=== PATIENT | female | born 1940 | race Caucasian/White ===

== ENCOUNTER 2018-02-08 08:50 | Inpatient (IN) ==
[2018-02-08] MEDS ORDERED: Aspirin 81 MG TAB.CHEW PO ONE (09:02)
--- NOTE | 2018-02-08 09:04 | Emergency Department Note ---
Disposition Clinical Impression: UTI (urinary tract infection) Chest pain Qualifiers: Chest pain type: unspecified Qualified Code(s): R07.9 - Chest pain, unspecified Disposition: Admitted As Inpatient Condition: Fair Time of Disposition: 09:48 General Adult HPI - General Stated complaint: CP,UTI Time Seen by Provider: 02/08/18 08:58 Nursing Notes Reviewed: Yes Vital Signs Reviewed: Yes - History of Present Illness HPI Narrative: Patient presents to the ED with 2 chief complaints. The first one is a UTI. She has had symptoms that have not resolved with Ceftin air. She is also having exertional chest pain that worsened yesterday. Currently chest pain- free. Denies any cardiac history. Patient states the pain radiates across her shoulders and up into her jaws. - Related Data Home Medications Medication Instructions Recorded Confirmed HYDROcodone/Acet 7.5/325 mg [[place] 1 tab PO Q4H PRN 07/09/17 02/08/18 7.5-325 mg] Buspirone HCl [Buspar] 15 mg PO TID 02/08/18 02/08/18 Dicyclomine [Bentyl] 20 mg PO QID PRN 02/08/18 02/08/18 Ibuprofen [Motrin Ib] 200 mg PO DAILY PRN 02/08/18 02/08/18 Metoprolol Succinate [Toprol Xl] 50 mg PO DAILY 02/08/18 02/08/18 Omeprazole [PriLOSEC] 20 mg PO DAILY PRN 02/08/18 02/08/18 hydrOXYzine HCl [Hydroxyzine HCl] 25 mg PO TID 02/08/18 02/08/18 Allergies Allergy/AdvReac Type Severity Reaction Status Date / Time arthritis medicine Allergy Hives Uncoded 01/19/17 11:21 All systems ED: reviewed and negative except as stated. Constitutional: Denies: fever Cardiovascular: Reports: chest pain Respiratory: Reports: dyspnea. Denies: wheezes Gastrointestinal: Denies: abdominal pain, vomiting, diarrhea Genitourinary: Reports: urgency, dysuria Neurological: Denies: headache Past Medical History - Past Medical History Attestation: Yes The following information was validated with the patient. 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 Absent: respiratory distress - Cardiovascular Cardiovascular exam: Present: regular rate, normal rhythm, normal heart sounds - Abdominal Exam Abdominal exam: Present: soft, Non-Tender - Neurological Exam Neurological exam: Present: alert, oriented X3 - Psychiatric Psychiatric exam: Present: normal affect - Skin Skin exam: Present: warm, dry Course Course Narrative: Patient is in no acute distress. She is currently chest pain-free. No acute ischemic EKG changes. Patient will be admitted for further cardiac workup. - Reevaluation(s) Reevaluation #1: Troponin 0.06. Still pain free. Will admit. Time: 09:47 - Consultations Consultation #1: Dr Encinas accepts Time: 09:47 Vital Signs Pulse Rate 59 02/08/18 09:05 Respiratory Rate 11 02/08/18 09:05 Blood Pressure 194/80 02/08/18 09:05 O2 Sat by Pulse Oximetry 99 02/08/18 09:05 Temperature 97.5 F L 02/08/18 09:08 Pulse Rate 60 02/08/18 09:34 Respiratory Rate 18 02/08/18 10:16 Blood Pressure 195/86 02/08/18 10:16 O2 Sat by Pulse Oximetry 99 02/08/18 09:34 Oxygen Delivery Oxygen Delivery Room Air Medical Decision Making - [facility] Narrative Medical decision making narrative: Patient with UTI. Given Rocephin and culture ordered. Patient is further cardiac workup for elevated troponin and concerning symptoms. - Medical Records Medical records reviewed: Yes I reviewed the patient's medical records. - Lab Data Lab results reviewed: Yes I reviewed the patient's lab results. Result diagrams: 02/08/18 09:04 02/08/18 09:04 Lab Results 02/08/18 02/08/18 02/08/18 Range/Units 09:03 09:04 09:04 WBC 5.3 (4.3-11.1) K/mcL RBC 3.62 L (3.82-4.97) M/mcL Hgb 11.0 L (11.5-15.4) g/dL Hct 32.6 L (35.3-44.9) % MCV 90.1 (83.0-100.0) fL MCH 30.4 (28.0-33.3) pg MCHC 33.7 (31.6-35.5) g/dL RDW 12.5 (11.5-14.5) % Plt Count 201 (140-400) K/mcL MPV 8.7 L (9.4-12.4) fL Immature Gran % 0.8 (0-4) % Seg Neutrophils % 57.9 % Lymphocytes % 27.2 % Monocytes % 9.2 % Eosinophils % 3.4 % Basophils % 1.5 % Neutrophils # 3.1 (1.6-8.9) K/mcL Lymphocytes # 1.5 (0.6-4.6) K/mcL Monocytes # 0.5 (0.0-1.3) K/mcL Eosinophils # 0.2 (0.0-0.6) K/mcL Basophils # 0.1 (0.0-0.2) K/mcL PT 11.1 (9.4-12.1) Seconds INR 1.0 APTT 35.5 (26.0-36.0) Seconds Sodium 135 L (136-145) mEq/L Potassium 3.5 (3.5-5.1) mEq/L Chloride 104 (98-107) mEq/L Carbon Dioxide 27 (23-29) mEq/L BUN 13 (8-23) mg/dL Creatinine 0.65 (0.60-1.20) mg/dL Est GFR ( Amer) > 60 (> 60) Est GFR (Non-Af Amer) > 60 (> 60) BUN/Creatinine Ratio 20 (6-26) Glucose 96 (70-105) mg/dL Calculated Osmolality 280 (280-300) Calcium 8.3 L (8.6-10.3) mg/dL Troponin I 0.06 H* (< 0.04) ng/mL Urine Color (Yellow) Urine Clarity (Clear) Urine pH (5.0-8.0) pH Units Ur Specific [place] (1.010-1.025) Urine Protein (Neg-Trace) mg/dL Urine Glucose (UA) (Normal) mg/dL Urine Ketones (Negative) mg/dL Urine Blood (Negative) Urine Nitrite (Negative) Urine Bilirubin (Negative) Urine Urobilinogen (Normal) mg/dL Ur Leukocyte Esterase (Negative) Urine Microscopic RBC (0-3) per hpf Urine Microscopic WBC (0-3) per hpf Ur Squamous Epith Cells (None-Few) per lpf Urine Bacteria (None-Few) per hpf Hyaline Casts (None-Few) per lpf Ur Culture Indicated? (NO) 02/08/18 Range/Units 09:55 WBC (4.3-11.1) K/mcL RBC (3.82-4.97) M/mcL Hgb (11.5-15.4) g/dL Hct (35.3-44.9) % MCV (83.0-100.0) fL MCH (28.0-33.3) pg MCHC (31.6-35.5) g/dL RDW (11.5-14.5) % Plt Count (140-400) K/mcL MPV (9.4-12.4) fL Immature Gran % (0-4) % Seg Neutrophils % % Lymphocytes % % Monocytes % % Eosinophils % % Basophils % % Neutrophils # (1.6-8.9) K/mcL Lymphocytes # (0.6-4.6) K/mcL Monocytes # (0.0-1.3) K/mcL Eosinophils # (0.0-0.6) K/mcL Basophils # (0.0-0.2) K/mcL PT (9.4-12.1) Seconds INR APTT (26.0-36.0) Seconds Sodium (136-145) mEq/L Potassium (3.5-5.1) mEq/L Chloride (98-107) mEq/L Carbon Dioxide (23-29) mEq/L BUN (8-23) mg/dL Creatinine (0.60-1.20) mg/dL Est GFR ( Amer) (> 60) Est GFR (Non-Af Amer) (> 60) BUN/Creatinine Ratio (6-26) Glucose (70-105) mg/dL Calculated Osmolality (280-300) Calcium (8.6-10.3) mg/dL Troponin I (< 0.04) ng/mL Urine Color Yellow (Yellow) Urine Clarity Turbid A (Clear) Urine pH 6.5 (5.0-8.0) pH Units Ur Specific [place] 1.014 (1.010-1.025) Urine Protein Negative (Neg-Trace) mg/dL Urine Glucose (UA) Normal (Normal) mg/dL Urine Ketones Negative (Negative) mg/dL Urine Blood Small H (Negative) Urine Nitrite Positive A (Negative) Urine Bilirubin Negative (Negative) Urine Urobilinogen Normal (Normal) mg/dL Ur Leukocyte Esterase Large H (Negative) Urine Microscopic RBC 5-15 H (0-3) per hpf Urine Microscopic WBC TNTC H (0-3) per hpf Ur Squamous Epith Cells Many H (None-Few) per lpf Urine Bacteria Many H (None-Few) per hpf Hyaline Casts None Seen (None-Few) per lpf Ur Culture Indicated? NO. A (NO) - Radiology Data Radiology results reviewed: Yes I reviewed the patient's radiology results. Chest X-Ray 02/08/18 09:03 IMPRESSION: No acute cardiopulmonary process identified. D/ / Beni De La Garza MD / Beni De La Garza MD Interpreting Provider: Beni De La Garza MD - EKG Data EKG #1 EKG attestation: Yes I reviewed and interpreted this EKG. EKG results narrative: Sinus bradycardia at 55. Normal QRS. Normal ST segments. Normal axis. Unchanged from EKG October 2017. Critical Care Time Critical Care Time: No
[2018-02-08 09:21] LABS: Basophils # 0.1 K/mcL (0.0-0.2); Basophils % 1.5 %; Eosinophils # 0.2 K/mcL (0.0-0.6); Eosinophils % 3.4 %; Hematocrit 32.6 % (35.3-44.9); Immature Granulocytes % 0.8 % (0-4); Lymphocytes # 1.5 K/mcL (0.6-4.6); Lymphocytes % 27.2 %; Mean Corpuscular HGB Conc 33.7 g/dL (31.6-35.5); Mean Corpuscular Hemoglobin 30.4 pg (28.0-33.3); Mean Corpuscular Volume 90.1 fL (83.0-100.0); Mean Platelet Volume 8.7 fL (9.4-12.4); Monocytes # 0.5 K/mcL (0.0-1.3); Monocytes % 9.2 %; Neutrophils # 3.1 K/mcL (1.6-8.9); Platelet Count 201 K/mcL (140-400); Red Blood Count 3.62 M/mcL (3.82-4.97); Red Cell Distribution Width 12.5 % (11.5-14.5); Segmented Neutrophils % 57.9 %
[2018-02-08 09:26] LABS: Prothrombin Time 11.1 Seconds (9.4-12.1)
[2018-02-08 09:29] LABS: Activated Partial Thrombo Time 35.5 Seconds (26.0-36.0)
[2018-02-08] MEDS ORDERED: Naloxone 0.4 MG/ML INJ IVP PRN (09:42)
[2018-02-08 09:44] LABS: BUN/Creatinine Ratio 20 (6-26); Blood Urea Nitrogen 13 mg/dL (8-23); Calcium 8.3 mg/dL (8.6-10.3); Carbon Dioxide 27 mEq/L (23-29); Chloride 104 mEq/L (98-107); Glucose 96 mg/dL (70-105); Osmolality,Calculated 280 (280-300); Potassium 3.5 mEq/L (3.5-5.1); Sodium 135 mEq/L (136-145); eGFR For African Americans > 60 (> 60); eGFR For Non-African Americans > 60 (> 60)
[2018-02-08] MEDS ORDERED: Metoprolol XL (24 HR) Succ 25 MG TAB.ER.24H PO ONE (09:45)
[2018-02-08 09:47] LABS: Troponin I 0.06 ng/mL (< 0.04)
--- NOTE | 2018-02-08 09:50 | Internal Med History&Physical ---
Date of Encounter: 02/09/18 Time of Encounter: 09:49 Internal Medicine - H&P: HPI Chief complaint: chest pain Admitted From: Emergency Dept Plans for Post Hospital Care: Home History of present illness: PCP: GRACIELA Stacy Brief past medical history: Fibromyalgia, irritable bowel syndrome, multiple episodes of urinary tract infection for more than 25 years History of present medical illness: This is a 77-year-old female who has ongoing chest pain for past 48 hours. Patient claims that she has a retrosternal chest pain, radiating to her jaw and her left arm, sharp in nature , worsened with exercise and activity and relieved by rest. Patient was concern about this progressively worsened chest pain and that was the reason she came to emergency room for further evaluation. Patient does have a foul smelling urine. Patient denies nausea, vomiting, dizziness, abdominal pain, or diarrhea. Workup in the emergency room: Patient was evaluated in the emergency room. Basic labs were drawn. Chest x-ray was negative for any acute cardiopulmonary process. Troponin was 0.06 Reason for admission: Chest pain with positive troponin to rule out underlying coronary artery disease/acute coronary syndrome Family history: Noncontributory Past Med Surg Social Fam HX - Past Medical History Medical history: arthritis, cancer, GERD, hypertension, other Psychiatric history: anxiety, depression - Past Surgical History Surgical History: appendectomy, breast surgery, cancer surgery - Social History Smoking Status: Never smoker Alcohol use: none Drug use: none Internal Medicine - H&P: Meds HYDROcodone/Acet 7.5/325 mg [[place] 7.5-325 mg] 1 tab PO Q4H PRN 07/09/17 [ History] Buspirone HCl [Buspar] 15 mg PO TID 02/08/18 [History] Dicyclomine [Bentyl] 20 mg PO QID PRN 02/08/18 [History] Ibuprofen [Motrin Ib] 200 mg PO DAILY PRN 02/08/18 [History] Metoprolol Succinate [Toprol Xl] 50 mg PO DAILY 02/08/18 [History] Omeprazole [PriLOSEC] 20 mg PO DAILY PRN 02/08/18 [History] hydrOXYzine HCl [Hydroxyzine HCl] 25 mg PO TID 02/08/18 [History] 3 Allergy/AdvReac Type Severity Reaction Status Date / Time arthritis medicine Allergy Hives Uncoded 01/19/17 11:21 All Systems PM: A 10-system review of systems was performed and is negative for pertinent findings except as documented above in the HPI. - Constitutional Constitutional: no chills, no fever(s), no night sweats - EENT Eyes: no change in vision, no discharge, no pain, no photophobia Ears: no ear discharge, no ear pain, no tinnitus Nose, mouth and throat: no dysphagia, no nasal discharge, no neck pain, no sore throat - Cardiovascular Cardiovascular ROS IM: chest pain, no diaphoresis, no dyspnea, no lightheadedness, no palpitations, no syncope - Respiratory Respiratory: no cough, no dyspnea, no wheezing, no excessive phlegm production - Gastrointestinal Gastrointestinal: no abdominal pain, no diarrhea, no hematemesis, no hematochezia, no melena, no nausea, no vomiting - Genitourinary Genitourinary: no change in urinary stream, no dysuria, no flank pain, no hematuria - Musculoskeletal Musculoskeletal ROS IM: no numbness, no tingling - Integumentary Integumentary IM: no rash, no unusual bruising - Neurological Neurological ROS: no confusion, no convulsions, no focal weakness, no numbness, no tingling, no tremor(s) - Hematologic/Lymphatic Hematologic/Lymphatic: no easy bruising - Constitutional Vitals: Temp Pulse Resp BP Pulse Ox 97.5 F L 60 16 158/94 99 02/08/18 09:08 02/08/18 09:34 02/08/18 09:34 02/08/18 09:34 02/08/18 09:34 General appearance: Present: A&O X 3, pleasant, no acute distress, answers questions appropriately - Head Head exam: Present: atraumatic, normocephalic - Eye Eye exam: Present: PERRL, conjuntiva pink, sclera anicteric Pupils: Present: PERRL - Neck Neck exam general surgery: Present: supple, trachea midline. Absent: lymphadenopathy - Respiratory Respiratory exam: Present: CTAB. Absent: accessory muscle use, rales, rhonchi, wheezes - Cardiovascular Cardiovascular exam: Present: RRR, +S1, +S2. Absent: diastolic murmur, gallop, rubs, systolic murmur - GI/Abdominal GI/Abdominal exam: Present: normal bowel sounds, soft, no peritoneal signs. Absent: distended, tenderness - Extremities Exam Extremities exam: Present: warm, radial pulses palpable and symmetrical. Absent : calf tenderness, cyanotic, pedal edema - Neurological Exam Neurological exam: Present: CN II-XII intact, oriented X3, no focal deficits. Absent: pronater drift, facial droop, speech deficit - Skin Skin exam: Present: dry, intact Internal Med - H&P Results - Labs CBC & Chem 7: 02/09/18 03:17 02/09/18 03:17 Labs: Short CBC 02/08/18 Range/Units 09:04 WBC 5.3 (4.3-11.1) K/mcL Hgb 11.0 L (11.5-15.4) g/dL Hct 32.6 L (35.3-44.9) % Plt Count 201 (140-400) K/mcL Neutrophils # 3.1 (1.6-8.9) K/mcL BMP 02/08/18 09:04 Sodium 135 L Potassium 3.5 Chloride 104 Carbon Dioxide 27 BUN 13 Creatinine 0.65 Glucose 96 Calcium 8.3 L Cardiac Enzymes 02/08/18 Range/Units 09:04 Troponin I 0.06 H* (< 0.04) ng/mL - Impressions ITS Impressions Chest X-Ray 02/08/18 09:03 IMPRESSION: No acute cardiopulmonary process identified. D/ / Beni De La Garza MD / Beni De La Garza MD Interpreting Provider: Beni De La Garza MD - Assessment and plan (1) Chest pain Current Visit: Yes Status: Acute Assessment and plan: 79/mL Admitted with chest pain JERSON score:4 Presently chest pain-free. Assessment: Chest pain to rule out ACS,. Possible GERD. Plan: Admit as an observation. Cardiac diet. Nothing by mouth from midnight. Serial troponin Echocardiogram. Aspirin/beta phil/statin/sublingual nitroglycerin I have examined this patient in the emergency room #5. Plan of care explained to the patient. Patient verbalized understanding. Qualifiers: Chest pain type: unspecified Qualified Code(s): R07.9 - Chest pain, unspecified (2) Elevated troponin Current Visit: Yes Status: Acute Assessment and plan: Noted that patient's troponin is 0.06. At this point etiology for elevated troponin can be multifactorial. She might have underlying urinary tract infection and possibility of a demand ischemia is very high. Plan: Trend the troponin. At this point patient is chest pain-free. If the patient gets chest pain/abnormal echocardiogram: Please consult cardiology. (3) Hypertension Current Visit: Yes Status: Acute Assessment and plan: At this point patient's blood pressure is very well controlled. We will resume home medication. We will closely monitor blood pressure. Qualifiers: Hypertension type: essential hypertension Qualified Code(s): I10 - Essential (primary) hypertension (4) Fibromyalgia Current Visit: Yes Status: Acute Assessment and plan: At this point her fibromyalgia is well-controlled. We will resume home medications. (5) DVT prophylaxis Current Visit: Yes Status: Acute Assessment and plan: Subcutaneous heparin Medical decision making: This patient has a moderate to severe risk of worsening in spite of being on appropriate medication due to the underlying chronic comorbid conditions - Time Spent With Patient Total time spent is greater than 50% in coordination of care (as documented) at patient's floor/unit and/or counseling patient:
[2018-02-08 10:10] LABS: Bilirubin,Urine Negative (Negative); Blood,Urine Small (Negative); Clarity,Urine Turbid (Clear); Color,Urine Yellow (Yellow); Glucose,Urine (UA) Normal (Normal); Ketones,Urine Negative (Negative); Leukocyte Esterase,Urine Large (Negative); Nitrite,Urine Positive (Negative); PH,Urine 6.5 pH Units (5.0-8.0); Protein,Urine Negative (Neg-Trace); Specific Gravity,Urine 1.014 (1.010-1.025); Urobilinogen,Urine Normal (Normal)
[2018-02-08 10:12] LABS: Bacteria,Urine Many per hpf (None-Few); Hyaline Casts,Urine None Seen per lpf (None-Few); Squamous Epithelial Cell,Urine Many per lpf (None-Few); WBC,Urine TNTC per hpf (0-3)
[2018-02-08] MEDS ORDERED: cefTRIAXone 1,000 MG in Water for inj. (sterile) 20 ML 10 ML IVP ONE (10:18)
[2018-02-08] MEDS: *HR* Heparin 5,000 UNIT/ML VIAL SQ SCH ×2 (14:08→21:44)
[2018-02-08] MEDS: hydrOXYzine pamoate 25 MG CAPSULE PO SCH ×2 (14:09→20:11)
--- NOTE | 2018-02-08 16:22 | Electrocardiograph Report ---
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
[2018-02-08] MEDS: *HR* HYDROcodone/Acet 7.5/325 mg TABLET PO PRN (20:12)
[2018-02-09 03:59] LABS: Basophils # 0.1 K/mcL (0.0-0.2); Basophils % 1.2 %; Eosinophils # 0.3 K/mcL (0.0-0.6); Eosinophils % 4.4 %; Immature Granulocytes % 0.7 % (0-4); Lymphocytes # 2.1 K/mcL (0.6-4.6); Lymphocytes % 37.1 %; Mean Corpuscular HGB Conc 34.5 g/dL (31.6-35.5); Mean Corpuscular Hemoglobin 30.4 pg (28.0-33.3); Mean Corpuscular Volume 88.1 fL (83.0-100.0); Mean Platelet Volume 9.2 fL (9.4-12.4); Monocytes # 0.6 K/mcL (0.0-1.3); Monocytes % 11.1 %; Neutrophils # 2.6 K/mcL (1.6-8.9); Platelet Count 191 K/mcL (140-400); Red Blood Count 3.29 M/mcL (3.82-4.97); Red Cell Distribution Width 12.4 % (11.5-14.5); Segmented Neutrophils % 45.5 %
[2018-02-09 04:03] LABS: INR 1.1; Prothrombin Time 11.3 Seconds (9.4-12.1)
[2018-02-09 04:05] LABS: Activated Partial Thrombo Time 44.5 Seconds (26.0-36.0)
[2018-02-09 04:16] LABS: Alanine Aminotransferase 9 Units/L (7-52); Albumin 3.3 g/dL (3.5-5.7); Albumin/Globulin Ratio 1.1 (1.1-2.2); Alkaline Phosphatase 44 Units/L (34-104); Aspartate Amino Transferase 17 Units/L (13-39); BUN/Creatinine Ratio 18 (6-26); Bilirubin,Total 0.6 mg/dL (0.3-1.0); Blood Urea Nitrogen 12 mg/dL (8-23); Calcium 8.6 mg/dL (8.6-10.3); Carbon Dioxide 29 mEq/L (23-29); Chloride 103 mEq/L (98-107); Chol/HDL Ratio 3.2 (0-4.9); Cholesterol 140 mg/dL (< 200); Glucose 83 mg/dL (70-105); HDL Cholesterol 44 mg/dL (40-59); LDL Cholesterol,Calculated 83 mg/dL (0-99); Magnesium 1.8 mg/dL (1.6-2.6); Osmolality,Calculated 283 (280-300); Phosphorous 4.1 mg/dL (2.7-4.5); Potassium 3.6 mEq/L (3.5-5.1); Sodium 137 mEq/L (136-145); Total Protein 6.3 g/dL (6.4-8.9); Triglycerides 66 mg/dL (< 150); eGFR For African Americans > 60 (> 60); eGFR For Non-African Americans > 60 (> 60)
[2018-02-09] MEDS: *HR* Heparin 5,000 UNIT/ML VIAL SQ SCH ×3 (05:25→21:18)
[2018-02-09] MEDS: hydrOXYzine pamoate 25 MG CAPSULE PO SCH ×3 (08:06→21:18)
[2018-02-09] MEDS: Aspirin Enteric Coated 81 MG Tablet PO SCH (08:06)
[2018-02-09] MEDS: Isosorbide MONOnitrate (24 HR) 30 MG TAB.ER.24H PO SCH (11:41)
[2018-02-09] MEDS: 0.9 % Sodium Chloride 1,000 ML IVC SCH (11:42)
[2018-02-09] MEDS: cefTRIAXone 1,000 MG in Water for inj. (sterile) 20 ML 10 ML IVP SCH (11:42)
[2018-02-09] MEDS: *HR* HYDROcodone/Acet 7.5/325 mg TABLET PO PRN ×2 (11:57→21:17)
--- NOTE | 2018-02-09 12:53 | Cardiology Consult Note ---
Date of Encounter: 02/09/18 Time of Encounter: 12:43 Assessment and Plan (1) Elevated troponin Current Visit: Yes Status: Acute Troponin 0.06 x 3, 0.05 in setting of UTI and accelerated htn on presentation-- 190s systolic. Suspect demand ischemia, nondiagnostic for ACS. TTE EF 60%, moderate LVDD, mild valvular dysfunction. Chest pain intermittent x 2 days with radiation to neck/ears and shoulders, but also in setting of UTI. Currently chest pain free. EKG with no acute changes. Recommend pharmacologic nuclear stress test in AM. Continue to follow. (2) Chest pain Current Visit: Yes Status: Acute Chest pain intermittent x 2 days with radiation to neck/ears and shoulders in setting of UTI and accelerated htn on admission. ASA provided chest pain relief at home. She has not had any recurrence since admission. EKG with no acute changes. Borderline troponins, likely demand ischemia. Risk factors for CAD include age and HTN. No prior cardiac hx. Recommend pharmacologic nuclear stress test in AM to further evaluate. Continue to follow. Qualifiers: Chest pain type: unspecified Qualified Code(s): R07.9 - Chest pain, unspecified (3) Hypertension Current Visit: Yes Status: Acute BP currently not at goal. Was on Toprol XL 50mg daily at home. Reviewed prior EKGs, HR usually in 50s. AVG HR overnight 58. Toprol has not been resumed. Will start Norvasc 5mg daily for BP control. Adjust as necessary. Qualifiers: Hypertension type: essential hypertension Qualified Code(s): I10 - Essential (primary) hypertension Discussion w patient/family: The assessment and plan as outlined above was discussed with the patient and/or family members who expressed understanding and agreement. All questions were answered. Thank you for involving us in the care of your patient. Please call with any questions. I will discuss all the above with Dr. Sullivan and make changes as necessary. History of Present Illness Consult date: 02/09/18 Requesting physician: Dwight Collazo Consult reason: chest pain, elevated troponin Chief complaint: chest pain, leg weakness, dyspnea History of present illness: Ms. Young is a 77 year old female with PMH of fibromyalgia, IBS, multiple UTIs , HTN, that presented with chief complaint of chest pain, dizziness, weakness, and dyspnea occurring over recent days. Patient reports midsternal chest pain, radiating to bilateral jaw, into ears and shoulders. She did notice sometimes the pain occurred with exertion, but also noted it at rest. Chest pain was intermittent. She took ASA with relief. She woke up yesterday and felt dizzy with leg weakness and had another episode of chest pain, prompting ED evaluation. She has been found to have a UTI. Troponins 0.06 x3, 0.05. Cardiology consulted for further recs. TTE resulted--EF 60%, moderate LVDD, mild -moderate MR, mild AR TR and [place]. No phtn. Past Med Surg Social Fam HX - Past Medical History Medical history: arthritis, cancer, GERD, hypertension, other Psychiatric history: anxiety, depression - Past Surgical History Surgical History: appendectomy, breast surgery, cancer surgery - Social History Smoking Status: Never smoker Smokeless Tobacco Status: No Alcohol use: none Drug use: none - Family History Daughter Living Status: Still Living Hx Family Cardiac Disorders: Yes Hx Family Endocrine Disorder: Yes Medications and Allergies HYDROcodone/Acet 7.5/325 mg [[place] 7.5-325 mg] 1 tab PO Q4H PRN 07/09/17 [ History] Buspirone HCl [Buspar] 15 mg PO TID 02/08/18 [History] Dicyclomine [Bentyl] 20 mg PO QID PRN 02/08/18 [History] Ibuprofen [Motrin Ib] 200 mg PO DAILY PRN 02/08/18 [History] Metoprolol Succinate [Toprol Xl] 50 mg PO DAILY 02/08/18 [History] Omeprazole [PriLOSEC] 20 mg PO DAILY PRN 02/08/18 [History] hydrOXYzine HCl [Hydroxyzine HCl] 25 mg PO TID 02/08/18 [History] 3 Allergy/AdvReac Type Severity Reaction Status Date / Time arthritis medicine Allergy Hives Uncoded 01/19/17 11:21 All Systems Review: The remainder of the systems were reviewed and are negative - Constitutional Constitutional: weakness - Cardiovascular Cardiovascular: as per HPI, chest pain at rest, chest pain with exertion, dyspnea on exertion, radiating jaw, neck or arm pain, lightheadedness, palpitations - Neurological Neurological: dizziness Physical Examination Vital Signs, Last 4 Hours Temp Pulse Resp BP Pulse Ox 02/09/18 12:07 98.4 F 58 17 160/89 94 Vital Signs Temp Pulse Resp BP Pulse Ox 02/09/18 12:07 98.4 F 58 17 160/89 94 02/09/18 07:13 98.0 F 69 17 155/62 96 02/09/18 03:34 97.9 F 55 17 169/66 97 02/09/18 00:03 97.9 F 56 16 147/61 96 02/08/18 18:59 98.1 F 86 16 148/75 97 02/08/18 15:55 97.9 F 64 14 165/70 96 Intake and Output 02/08/18 02/09/18 02/09/18 23:59 07:59 15:59 Other: Meal Dinner NPO Percent of Meal Consumed 50% Weight 66 kg Patient Weight 02/09/18 23:59 Weight 66 kg General: Conversant, No Apparent Distress HEENT: Atraumatic, Normocephaly, Mucus Membranes Moist Neck: No JVD, Normal carotid pulses Cardiac: Reg Rate and Rhythm, Normal S1 and S2, No Murmur Lungs: Normal Breath Sounds, No Wheeze, Rales, Rhonchi Neuro: Alert and responsive, No focal deficits noted Abdomen: Soft, Non-Tender Skin: No rashes noted on visualized skin Musculoskeletal: No Chest Wall Tenderness Extremities: No Clubbing, No Cyanosis, No Edema, Normal Pulses Results 02/09/18 03:17 02/09/18 03:17 Lab Results 02/08/18 02/08/18 02/09/18 14:25 21:07 03:17 WBC Hgb Hct Plt Count INR APTT Sodium Potassium Chloride Carbon Dioxide BUN Creatinine Glucose Calcium Magnesium Total Bilirubin AST ALT Alkaline Phosphatase Troponin I 0.06 H* 0.06 H* 0.05 H* B-Natriuretic Peptide 02/09/18 02/09/18 02/09/18 03:17 03:17 03:17 WBC 5.7 Hgb 10.0 L Hct 29.0 L Plt Count 191 INR 1.1 APTT 44.5 H Sodium 137 Potassium 3.6 Chloride 103 Carbon Dioxide 29 BUN 12 Creatinine 0.68 Glucose 83 Calcium 8.6 Magnesium 1.8 Total Bilirubin 0.6 AST 17 ALT 9 Alkaline Phosphatase 44 Troponin I B-Natriuretic Peptide 02/09/18 03:17 WBC Hgb Hct Plt Count INR APTT Sodium Potassium Chloride Carbon Dioxide BUN Creatinine Glucose Calcium Magnesium Total Bilirubin AST ALT Alkaline Phosphatase Troponin I B-Natriuretic Peptide 298 H Short CBC 02/09/18 Range/Units 03:17 WBC 5.7 (4.3-11.1) K/mcL Hgb 10.0 L (11.5-15.4) g/dL Hct 29.0 L (35.3-44.9) % Plt Count 191 (140-400) K/mcL Neutrophils # 2.6 (1.6-8.9) K/mcL BMP 02/09/18 Range/Units 03:17 Sodium 137 (136-145) mEq/L Potassium 3.6 (3.5-5.1) mEq/L Chloride 103 (98-107) mEq/L Carbon Dioxide 29 (23-29) mEq/L BUN 12 (8-23) mg/dL Creatinine 0.68 (0.60-1.20) mg/dL Glucose 83 (70-105) mg/dL Calcium 8.6 (8.6-10.3) mg/dL Cardiac Enzymes 02/09/18 02/08/18 02/08/18 Range/Units 03:17 21:07 14:25 Troponin I 0.05 H* 0.06 H* 0.06 H* (< 0.04) ng/mL Liver Function 02/09/18 Range/Units 03:17 Total Bilirubin 0.6 (0.3-1.0) mg/dL AST 17 (13-39) Units/L ALT 9 (7-52) Units/L Alkaline Phosphatase 44 (34-104) Units/L Albumin 3.3 L (3.5-5.7) g/dL Impressions Echocardiogram 02/09/18 09:44 Impressions: LVEF 60%. Moderate left ventricular diastolic dysfunction. Normal right ventricular structure and function. Mild-moderate mitral regurgitation. Mild aortic regurgitation. Mild tricuspid regurgitation. Mild pulmonic regurgitation. No pulmonary hypertension. Left Ventricular Wall Motion: Rest Echo Findings All wall segments showed normal motion. Findings: Study Quality * Technically adequate exam. ECG Findings * Sinus bradycardia. Left Ventricle * LVEF 60%. * Basal sigmoid septum. * Moderate left ventricular diastolic dysfunction. * Normal LV size and wall thickness. Right Ventricle * Normal right ventricular structure and function. Left Atrium * Moderately dilated left atrium. Right Atrium * Normal right atrial size. Mitral Valve * Normal mitral valve structure. * No mitral stenosis. * Mild-moderate mitral regurgitation. Aortic Valve * Mild aortic regurgitation. * Trileaflet aortic valve. * No aortic stenosis. Tricuspid Valve * Normal tricuspid valve structure. * Mild tricuspid regurgitation. * Estimated RA pressure is 3 mmHg. * Estimated RVSP is 23 mmHg. * No pulmonary hypertension. Pulmonic Valve * Pulmonic valve is not well visualized. * No pulmonic stenosis. * Mild pulmonic regurgitation. Pulmonary Artery * Pulmonary artery not well visualized. Aorta * Normally sized aortic root. Pericardium * There is no pericardial effusion present. Interatrial Septum * No evidence of PFO by color Doppler. IVC * The IVC is not dilated. Active Medications Hydrocodone Bitart/Acetaminophen ([place] 7.5-325 Mg) 1 tab PO Q4H PRN PRN Reason: Pain Stop: 08/10/18 09:46 Last Admin: 02/09/18 11:57 Dose: 1 tab Aspirin (Aspirin Ec) 81 mg PO DAILY ARIELLE Stop: 08/11/18 09:01 Last Admin: 02/09/18 08:06 Dose: 81 mg Atorvastatin Calcium (Lipitor) 20 mg PO HS [facility] Stop: 08/10/18 21:01 Last Admin: 02/08/18 20:10 Dose: Not Given Buspirone HCl (Buspar) 10 mg PO TID [facility] Stop: 08/10/18 15:01 Last Admin: 02/09/18 08:06 Dose: 10 mg Dicyclomine HCl (Bentyl) 20 mg PO QID PRN PRN Reason: STOMACH PAIN AND NAUSEA Stop: 08/10/18 10:07 Heparin Sodium (Porcine) (Heparin) 5,000 unit SQ Q8HCO ARIELLE Stop: 08/10/18 14:01 Last Admin: 02/09/18 05:25 Dose: 5,000 unit Hydroxyzine Pamoate (Hydroxyzine Pamoate) 25 mg PO TID ARIELLE Stop: 08/10/18 15:01 Last Admin: 02/09/18 08:06 Dose: 25 mg Sodium Chloride (0.9 % Sodium Chloride) 1,000 mls @ 60 mls/hr IVC .[id number] ARIELLE Stop: 08/11/18 08:46 Last Admin: 02/09/18 11:42 Dose: 60 mls/hr Ceftriaxone Sodium 1,000 mg/ (Sterile Water) 10 mls @ 300 mls/hr IVP DAILY ARIELLE Stop: 08/11/18 09:01 Last Admin: 02/09/18 11:42 Dose: 300 mls/hr Isosorbide Mononitrate (Imdur) 30 mg PO DAILY [facility] Stop: 08/11/18 09:01 Last Admin: 02/09/18 11:41 Dose: Not Given Naloxone HCl (Narcan) 0.4 mg IVP Q2MIN PRN PRN Reason: SEE COMMENTS Stop: 08/10/18 09:43 Nitroglycerin (Nitroglycerin) 0.4 mg SL Q5MIN PRN PRN Reason: Chest Pain Stop: 08/10/18 10:05 Omeprazole (Prilosec) 20 mg PO DAILY PRN; Protocol PRN Reason: ACID REFLUX Stop: 08/10/18 10:07 - Imaging and Cardiology Echo: report reviewed Consult Discharge Plan - Plan
--- NOTE | 2018-02-09 13:08 | Internal Med Progress Note ---
Date of Encounter: 02/09/18 Time of Encounter: 12:00 - Assessment and plan (1) Chest pain Current Visit: Yes Status: Acute Assessment and plan: Intermittent chest pain 2 days radiation to the neck and shoulders. Patient was noted to have accelerated hypertension on admission. She reports that she had taken ASA and was able to achieve relief of chest pain while at home. No recurrence of chest pain throughout this admission, EKG without ST elevation, depression or T-wave inversion, troponins elevated at 0.063 then 0.05 for last result this is likely due to demand ischemia in the setting of UTI and accelerated hypertension. No prior history of LA, risk factors include HTN TTE today shows a preserved ejection fraction with moderate left ventricular diastolic dysfunction, mild-moderate mitral regurgitation, mild aortic regurgitation, mild tricuspid regurgitation, mild pulmonic regurgitation without pulmonary hypertension. -Continuous telemetry -Patient undergo pharmacologic stress in the morning -May have a cardiac diet for now, nothing by mouth after midnight Qualifiers: Chest pain type: unspecified Qualified Code(s): R07.9 - Chest pain, unspecified (2) Hypertension Current Visit: Yes Status: Acute Assessment and plan: Patient remains hypertensive with SBP in the 160s Beta phil on hold due to bradycardia Cardiology has seen this afternoon and admitted Norvasc 5 mg by mouth daily Continue to closely monitor blood pressure and had adjunct therapy as necessary Qualifiers: Hypertension type: essential hypertension Qualified Code(s): I10 - Essential (primary) hypertension (3) Fibromyalgia Current Visit: Yes Status: Acute Assessment and plan: Well Controlled, resume home medications. (4) Elevated troponin Current Visit: Yes Status: Acute Assessment and plan: Noted that patient's troponin is 0.06. Most likely due to demand ischemia. Patient is currently chest pain-free, no EKG changes noted. To undergo a pharmacological stress in the morning (5) DVT prophylaxis Current Visit: Yes Status: Acute Assessment and plan: Subcutaneous heparin subcutaneous q8h - Time Spent With Patient Total time spent is greater than 50% in coordination of care (as documented) at patient's floor/unit and/or counseling patient: 25 - 35 minutes - Subjective Interval history: Ms. Young is a 77 year old female with PMH of fibromyalgia, IBS, multiple UTIs , HTN, that presented with chief complaint of chest pain, dizziness, weakness, and dyspnea occurring over recent days. Patient reports midsternal chest pain, radiating to bilateral jaw, into ears and shoulders. The chest pain is intermittent and noted to occur with both rest and exertion. Associated symptoms included dizziness and leg weakness. Additionally, she was noted to have suprapubic pain and tenderness also reporting dysuria. Patient has a history of multiple urinary tract infections as she reports dating back greater than 50 years. Denies any chest pain this morning, no shortness of breath. No events overnight. Continues to endorse suprapubic discomfort and dysuria. Denies any new concerns. - Constitutional Vitals: Temp Pulse Resp BP Pulse Ox 98.4 F 58 17 160/89 94 02/09/18 12:07 02/09/18 12:07 02/09/18 12:07 02/09/18 12:02/09/18 12:07 General appearance: Present: cooperative, A&O X 3, pleasant, no acute distress, answers questions appropriately - Head Head exam: Present: atraumatic, normocephalic - Eye Eye exam: Present: PERRL, conjuntiva pink, sclera anicteric Pupils: Present: PERRL - Neck Neck exam general surgery: Present: supple, trachea midline. Absent: lymphadenopathy - Respiratory Respiratory exam: Present: CTAB. Absent: accessory muscle use, rales, rhonchi, wheezes - Cardiovascular Cardiovascular exam: Present: RRR, +S1, +S2. Absent: diastolic murmur, gallop, rubs, systolic murmur - GI/Abdominal GI/Abdominal exam: Present: normal bowel sounds, soft, tenderness (Suprapubic tenderness), no peritoneal signs. Absent: distended - Extremities Exam Extremities exam: Present: warm, radial pulses palpable and symmetrical. Absent : calf tenderness, cyanotic, pedal edema - Neurological Exam Neurological exam: Present: CN II-XII intact, oriented X3, no focal deficits. Absent: pronater drift, facial droop, speech deficit - Skin Skin exam: Present: dry, intact Internal Medicine: Result - Labs CBC & Chem 7: 02/09/18 03:17 02/09/18 03:17 Labs: Short CBC 02/09/18 Range/Units 03:17 WBC 5.7 (4.3-11.1) K/mcL Hgb 10.0 L (11.5-15.4) g/dL Hct 29.0 L (35.3-44.9) % Plt Count 191 (140-400) K/mcL Neutrophils # 2.6 (1.6-8.9) K/mcL BMP 02/09/18 03:17 Sodium 137 Potassium 3.6 Chloride 103 Carbon Dioxide 29 BUN 12 Creatinine 0.68 Glucose 83 Calcium 8.6 Cardiac Enzymes 02/08/18 02/08/18 02/09/18 Range/Units 14:25 21:07 03:17 Troponin I 0.06 H* 0.06 H* 0.05 H* (< 0.04) ng/mL Liver Function 02/09/18 Range/Units 03:17 Total Bilirubin 0.6 (0.3-1.0) mg/dL AST 17 (13-39) Units/L ALT 9 (7-52) Units/L Alkaline Phosphatase 44 (34-104) Units/L Albumin 3.3 L (3.5-5.7) g/dL - ABG Interpretation ABG results: PT/INR, D-dimer PT 11.3 Seconds (9.4-12.1) 02/09/18 03:17 - Impressions Impressions Echocardiogram 02/09/18 09:44 Impressions: LVEF 60%. Moderate left ventricular diastolic dysfunction. Normal right ventricular structure and function. Mild-moderate mitral regurgitation. Mild aortic regurgitation. Mild tricuspid regurgitation. Mild pulmonic regurgitation. No pulmonary hypertension. Left Ventricular Wall Motion: Rest Echo Findings All wall segments showed normal motion. Findings: Study Quality * Technically adequate exam. ECG Findings * Sinus bradycardia. Left Ventricle * LVEF 60%. * Basal sigmoid septum. * Moderate left ventricular diastolic dysfunction. * Normal LV size and wall thickness. Right Ventricle * Normal right ventricular structure and function. Left Atrium * Moderately dilated left atrium. Right Atrium * Normal right atrial size. Mitral Valve * Normal mitral valve structure. * No mitral stenosis. * Mild-moderate mitral regurgitation. Aortic Valve * Mild aortic regurgitation. * Trileaflet aortic valve. * No aortic stenosis. Tricuspid Valve * Normal tricuspid valve structure. * Mild tricuspid regurgitation. * Estimated RA pressure is 3 mmHg. * Estimated RVSP is 23 mmHg. * No pulmonary hypertension. Pulmonic Valve * Pulmonic valve is not well visualized. * No pulmonic stenosis. * Mild pulmonic regurgitation. Pulmonary Artery * Pulmonary artery not well visualized. Aorta * Normally sized aortic root. Pericardium * There is no pericardial effusion present. Interatrial Septum * No evidence of PFO by color Doppler. IVC * The IVC is not dilated. Consult Discharge Plan - Plan Referrals: Tessa Stacy, LADONNA [Primary Care Provider] -
[2018-02-09] MEDS: amLODIPine 5 MG TABLET PO SCH (14:49)
[2018-02-10] MEDS: 0.9 % Sodium Chloride 1,000 ML IVC SCH ×2 (05:07→20:53)
[2018-02-10] MEDS: *HR* Heparin 5,000 UNIT/ML VIAL SQ SCH ×3 (05:34→23:24)
[2018-02-10] MEDS ORDERED: Regadenoson 0.4 MG/5 ML SYRINGE IVP ONE (05:43)
[2018-02-10] MEDS: cefTRIAXone 1,000 MG in Water for inj. (sterile) 20 ML 10 ML IVP SCH (08:58)
[2018-02-10] MEDS: hydrOXYzine pamoate 25 MG CAPSULE PO SCH ×3 (08:59→23:23)
[2018-02-10] MEDS: Isosorbide MONOnitrate (24 HR) 30 MG TAB.ER.24H PO SCH (08:59)
[2018-02-10] MEDS: amLODIPine 5 MG TABLET PO SCH (08:59)
[2018-02-10] MEDS: Aspirin Enteric Coated 81 MG Tablet PO SCH (08:59)
[2018-02-10] MEDS: Ibuprofen 400 MG TABLET PO PRN ×2 (09:09→20:19)
[2018-02-10 09:43] LABS: BUN/Creatinine Ratio 19 (6-26); Blood Urea Nitrogen 11 mg/dL (8-23); Calcium 8.7 mg/dL (8.6-10.3); Carbon Dioxide 25 mEq/L (23-29); Chloride 104 mEq/L (98-107); Glucose 97 mg/dL (70-105); Osmolality,Calculated 281 (280-300); Potassium 3.6 mEq/L (3.5-5.1); Sodium 136 mEq/L (136-145); eGFR For African Americans > 60 (> 60); eGFR For Non-African Americans > 60 (> 60)
[2018-02-10 09:51] LABS: Basophils # 0.1 K/mcL (0.0-0.2); Basophils % 0.9 %; Eosinophils # 0.1 K/mcL (0.0-0.6); Eosinophils % 1.5 %; Hematocrit 31.1 % (35.3-44.9); Hemoglobin 10.8 g/dL (11.5-15.4); Immature Granulocytes % 0.8 % (0-4); Lymphocytes # 1.2 K/mcL (0.6-4.6); Lymphocytes % 23.3 %; Mean Corpuscular HGB Conc 34.7 g/dL (31.6-35.5); Mean Corpuscular Hemoglobin 30.8 pg (28.0-33.3); Mean Corpuscular Volume 88.6 fL (83.0-100.0); Mean Platelet Volume 8.9 fL (9.4-12.4); Monocytes # 0.5 K/mcL (0.0-1.3); Monocytes % 8.7 %; Neutrophils # 3.4 K/mcL (1.6-8.9); Platelet Count 205 K/mcL (140-400); Red Blood Count 3.51 M/mcL (3.82-4.97); Red Cell Distribution Width 12.4 % (11.5-14.5); Segmented Neutrophils % 64.8 %
--- NOTE | 2018-02-10 12:22 | Event Note ---
Date of Encounter: 02/10/18 Time of Encounter: 12:20 - Cardiology Event Note Stress test resulted--Medium sized, mild to moderate intensity, reversible basal to mid inferior and inferolateral defect suggestive of ischemia. Given symptoms and abnormal stress test, recommend LHC. R/B/A discussed. Pt agrees to proceed. LHC today. Further recommendations to follow.
--- NOTE | 2018-02-10 12:37 | Internal Med Progress Note ---
Date of Encounter: 02/10/18 Time of Encounter: 12:15 - Assessment and plan (1) Chest pain Current Visit: Yes Status: Acute Assessment and plan: Admitted for chest pain, anginal equivalent and accelerated hypertension. Troponins elevated with peak at 0.06. Stress test today positive. Currently chest pain-free, hemodynamically stable Notes increasing chest pain and shortness of breath with activity and improves with rest -TTE yesterday showed a preserved ejection fraction with moderate left ventricular diastolic dysfunction, mild-moderate mitral regurgitation, mild aortic regurgitation, mild tricuspid regurgitation, mild pulmonic regurgitation without pulmonary hypertension. Plan for [facility] this afternoon Nothing by mouth now Continuous telemetry On aspirin, statin and Imdur. Continue these medications Holding beta phil due to bradycardia Qualifiers: Chest pain type: unspecified Qualified Code(s): R07.9 - Chest pain, unspecified (2) Hypertension Current Visit: Yes Status: Acute Assessment and plan: Blood pressures improving throughout stay. Beta phil remains on hold due to bradycardia Norvasc added per cardiology Continue to closely monitor blood pressure and had adjunct therapy as necessary Qualifiers: Hypertension type: essential hypertension Qualified Code(s): I10 - Essential (primary) hypertension (3) Fibromyalgia Current Visit: Yes Status: Acute Assessment and plan: Well Controlled, continue home medications. (4) Elevated troponin Current Visit: Yes Status: Acute Assessment and plan: Noted that patient's troponin is 0.06. Stress test results today with medium size, mild to moderate intensity reversible basal to mid inferior and inferolateral defect suggestive of ischemia. Patient is currently chest pain- free, resting comfortably. However, she did report some chest pain and shortness of breath overnight with activity which resolved with rest. Cardio following Plan for [facility] today Nothing by mouth now (5) DVT prophylaxis Current Visit: Yes Status: Acute Assessment and plan: Subcutaneous heparin subcutaneous q8h - Time Spent With Patient Total time spent is greater than 50% in coordination of care (as documented) at patient's floor/unit and/or counseling patient: Greater than 35 minutes - Subjective Interval history: Ms. Young is a 77 year old female with PMH of fibromyalgia, IBS, multiple UTIs , HTN, that presented with chief complaint of chest pain, dizziness, weakness, and dyspnea occurring over recent days. Patient reports midsternal chest pain, radiating to bilateral jaw, into ears and shoulders. The chest pain is intermittent and noted to occur with both rest and exertion. Associated symptoms included dizziness and leg weakness. Additionally, she was noted to have suprapubic pain and tenderness also reporting dysuria. Patient has a history of multiple urinary tract infections as she reports dating back greater than 50 years. Denies any chest pain this morning, no shortness of breath throughout the morning. Overnight the patient reports that she had shortness of breath and chest pain with activity which subsided with rest. Continues to endorse suprapubic discomfort and dysuria. Denies any new concerns. - Constitutional Vitals: Temp Pulse Resp BP Pulse Ox 98.1 F 71 16 135/66 96 02/10/18 11:48 02/10/18 11:48 02/10/18 11:48 02/10/18 11:48 02/10/18 11:48 General appearance: Present: cooperative, A&O X 3, pleasant, no acute distress, answers questions appropriately - Head Head exam: Present: atraumatic, normocephalic - Eye Eye exam: Present: PERRL, conjuntiva pink, sclera anicteric Pupils: Present: PERRL - Neck Neck exam general surgery: Present: supple, trachea midline. Absent: lymphadenopathy - Respiratory Respiratory exam: Present: CTAB. Absent: accessory muscle use, rales, rhonchi, wheezes - Cardiovascular Cardiovascular exam: Present: RRR, +S1, +S2. Absent: diastolic murmur, gallop, rubs, systolic murmur - GI/Abdominal GI/Abdominal exam: Present: normal bowel sounds, soft, tenderness (Mild suprapubic tenderness to palpation), no peritoneal signs. Absent: distended - Extremities Exam Extremities exam: Present: warm, radial pulses palpable and symmetrical. Absent : calf tenderness, cyanotic, pedal edema - Neurological Exam Neurological exam: Present: CN II-XII intact, oriented X3, no focal deficits. Absent: pronater drift, facial droop, speech deficit - Skin Skin exam: Present: dry, intact Internal Medicine: Result - Labs CBC & Chem 7: 02/10/18 09:08 02/10/18 09:08 Labs: Short CBC 02/10/18 Range/Units 09:08 WBC 5.3 (4.3-11.1) K/mcL Hgb 10.8 L (11.5-15.4) g/dL Hct 31.1 L (35.3-44.9) % Plt Count 205 (140-400) K/mcL Neutrophils # 3.4 (1.6-8.9) K/mcL BMP 02/10/18 09:08 Sodium 136 Potassium 3.6 Chloride 104 Carbon Dioxide 25 BUN 11 Creatinine 0.59 L Glucose 97 Calcium 8.7 - ABG Interpretation ABG results: PT/INR, D-dimer PT 11.3 Seconds (9.4-12.1) 02/09/18 03:17 - Impressions Positive stress test--Medium sized, mild to moderate intensity, reversible basal to mid inferior and inferolateral defect suggestive of ischemia. Consult Discharge Plan - Plan Referrals: Tessa Stacy CNP [Primary Care Provider] - 02/15/18 1:00 pm
[2018-02-10] MEDS: Sennosides 8.6 MG TABLET PO SCH (15:59)
[2018-02-10] MEDS: Cefepime HCl 1,000 MG in Water for inj. (sterile) 20 ML 10 ML IVP SCH (16:29)
[2018-02-10] MEDS ORDERED: Heparin 1,000 UNITS/500 mL 500 ML ONE (16:57)
[2018-02-10] MEDS ORDERED: 0.9 % Sodium Chloride 1,000 ML ONE (16:57)
[2018-02-10] MEDS ORDERED: Nitroglycerin 1,000 MCG/10 ML VIAL IV ONE (16:57)
[2018-02-10] MEDS ORDERED: ISOVUE-370 200 ML INFUS..BTL IV ONE (16:57)
[2018-02-10] MEDS ORDERED: *HR* Heparin 10,000 UNIT/10 ML VIAL ONE (16:57)
--- NOTE | 2018-02-10 17:18 | Pre-Sedation Evaluation ---
Pre-sedation evaluation - Pre-sedation checklist Date of procedure: 02/10/18 Procedure: [facility] Recent Vitals: Last Vital Signs Temp 98.0 F 02/10/18 15:51 Pulse 74 02/10/18 15:51 Resp 16 02/10/18 15:51 BP 137/75 02/10/18 15:51 Pulse Ox 96 02/10/18 15:51 H&P (including ROS) documented in medical record: Yes Previous reaction to sedatives/anesthetics: No Dietary Status: No solid food in preceding 4 hrs and no liquid in preceding 2 hrs Airway Assessment: Patient can open mouth completely, TMJ function normal Dentition: No loose teeth or bridges Possible difficult airway: No ASA Classification *see protocol: CLASS III-Severe systemic disease Plan of Care: Pt appropriate candidate for procedure/moderate/conscious sedation , Risks/benefits of procedure/sedation discussed w/ patient/family, If not NPO; Risk of intake outweiged by necessity to perform procedure
[2018-02-10] MEDS ORDERED: *HR* Midazolam HCl 2 MG/2 ML VIAL ONE (17:24)
--- NOTE | 2018-02-10 18:41 | Invasive Diagnostic Lab Proc ---
Name: Roxy Young Date of Study: 02/10/2018 Date: 1940 Ht: 62.9in Medical Record#: [id number] Age: 77 Wt: 145.73lb Gender: Female BSA: 1.69 Order #: [id number] BMI: 25.88 Physicians Procedure Physician: Bryan Gavin DO Referring MD: Referring MD: Staff Name Position Time In Perico Hendrickson RN Monitor 05:17 PM Rey William RN Monitor 05:18 PM Leti Barcenas RT (R) Scrub 05:18 PM Piero Lockett RN Oil [employer] Cable Tool Driller 05:18 PM Indications Indication Non-Stemi Procedures Performed Procedure L HRT ARTERY/VENTRICLE ANGIO PRQ CARD CRYSTAL STENT W/ANGIO 1 VSL Pre-Procedure Checklist Informed consent is complete signed and on chart. H&P is on chart. ID band is on and ID verified with patient. Patient NPO for procedure The procedure was described for the patient and questions were answered. Blood Pressure: 135/66 ECG is on chart. Plan of Care Patient will tolerate the procedure without complications. Adequate level of comfort will be maintained. Hemodynamics will remain stable Patient will recover from procedure without complications. Respiratory function will be maintained. Cardiac rhythm will remain stable. Patient temperature will be maintained. Patient and/or family have verbalized understanding of the procedure. Patient Education Chief Complaint/Reason for Test: Cardiac Cath Developmental Category: Geriatric (65+ years) Developmentally Appropriate for Age: Yes Learning Barriers: None Education Needs: Procedure Education Method: Verbal Information Taught: Cardiac Cath Educational Evaluation: Able to repeat information Intravenous Access Time IV Size Location DC'd Fluid/Drip Rate Units RN Started with 20g 1 1/4" Rt Arm 0.9NaCl 25 ml/hr Perico Hendrickson RN Allergies arthritis medicine Vital Signs Time BP (mmHg) HR (bpm) O2 Sat. RR (bpm) LOC 05:02 PM 135 / 66 71 % 16 5 = Fully awake and oriented or at pre-proc level 05:32 PM / % 5 = Fully awake and oriented or at pre-proc level 05:32 PM / % 4 = Oriented but drowsy 05:47 PM / % 4 = Oriented but drowsy 05:22 PM 156 / 81 70 98 % 05:26 PM 152 / 78 73 100 % 05:31 PM 134 / 64 72 100 % 05:36 PM 142 / 69 72 99 % 05:41 PM 143 / 78 81 100 % 05:46 PM 156 / 70 71 100 % 05:51 PM 137 / 68 69 100 % 05:56 PM 135 / 77 68 100 % 06:01 PM 149 / 67 72 100 % 06:06 PM 154 / 74 76 100 % 06:11 PM 154 / 71 72 100 % 06:16 PM 151 / 70 70 100 % Procedural Medications Time Medication Dose Units Method Given By 05:21 PM Oxygen 2 L/min nasal cannula Piero Lockett RN 05:26 PM Versed 2 mg Intravenous Perico Hendrickson RN 05:43 PM Lidocaine 2% 10 ml Subcutaneous Bryan Gavin DO 06:00 PM Angiomax 0.75mg/kg bolus: 10 ml Intravenous Perico Hendrickson RN 06:00 PM Angiomax 1.75mg/kg/hr: 23 ml Intravenous Perico Hendrickson RN 06:15 PM Plavix 300 mg Orally Perico Hendrickson RN ASA Classification: CLASS III- Severe systemic disease (i.e. prior AMI, diabetes with vascular complications, morbid obesity) Enrrique Score Preprocedure Postprocedure Activity 2- Moves 4 extremities sustained head lift Activity 2- Moves 4 extremities sustained head lift Circulation 2- SBP +/= 20 points of pre-anesthetic level Circulation 2- SBP +/= 20 points of pre-anesthetic level Consciousness 2- Awake and alert oriented x 3 Consciousness 2- Awake and alert oriented x 3 O2 Saturation 2- Able to maintain O2 satruation of 92% on room air O2 Saturation 2- Able to maintain O2 satruation of 92% on room air Respiratory 2- Able to deep breathe and cough well Respiratory 2- Able to deep breathe and cough well Total Score 10 Total Score 10 Contrast Agent: Isovue Diagnostic Contrast: 125 ml Total Contrast: 125 ml Fluoro Dose: 720 mGy Procedure Log Time Note Enter By 05:04 PM CathStat 05:17 PM 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 cedwards 05:18 PM Physican responded and notified patient is ready 17:18 cedwards 05:18 PM Physician arrived 17:18 cedwards 05:18 PM Delfin and coleman completed cedwards 05:18 PM Sign in performed according to hospital policy. cedwards 05:18 PM Hair removed from procedure site in procedure lab using clippers. Bilateral groin prepped with Chloraprep by Leti Barcenas (R), then patient was draped. Skin intact. cedwards 05:20 PM Vitals capture started with the following parameters, Patient=Adult, Interval=5 min, Initial Mfqbeecj=353 mmHg, Deflation Rate=5 mmHg, Cuff placed on Right Arm 05:20 PM Case Start 05:20 PM Vitals capture started with the following parameters, Patient=Adult, Interval=5 min, Initial Semtveik=403 mmHg, Deflation Rate=5 mmHg, Cuff placed on Right Arm 05:20 PM Procedure start 17: cedwards 05:21 PM Time: : Oxygen on at 2 L/min per nasal cannula by Piero Lockett RN cedwards 05:22 PM HR=70 bpm, NPOH=863/81 mmhg, SpO2=98.0 %, Comment=SR 05:22 PM Recorded ECG: HR=71 Condition=Condition 1 05:24 PM ASA Class CLASS III- Severe systemic disease (i.e. prior AMI, diabetes with vascular complications, morbid obesity) cedwards 05:26 PM HR=73 bpm, UNPW=809/78 mmhg, WbA1=698.0 %, Comment=SR 05: PM Time: : Versed 2 mg Intravenous Given by Perico Hendrickson RN cedwards 05:29 PM Pressure channel 2 zeroed. 05:31 PM HR=72 bpm, SETV=167/64 mmhg, NmY5=065.0 %, Comment=SR 05:32 PM Time: 17:32 Patient comfortable and pain free: Yes cedwards 05:32 PM Time: 17:32LOC: 5 = Fully awake and oriented or at pre-proc level cedwards 05:32 PM Clinical Presentation: Non-STEMI cedwards 05:36 PM HR=72 bpm, CUPW=294/69 mmhg, SpO2=99.0 %, Comment=SR 05:41 PM HR=81 bpm, GAHF=156/78 mmhg, EbU6=970.0 %, Comment=SR 05:42 PM Time out performed according to hospital policy cedwards 05:43 PM Time: 17:43 10 ml Lidocaine 2% to right groin Subcutaneous Given by Bryan Gavin DO cedwards 05:44 PM Micro-Introducer Kit utilized for sheath placement cedwards 05:45 PM Recorded ECG: HR=70 Condition=Condition 1 05:46 PM Access obtained by percutaneous puncture. 6Fr 10cm Terumo [place] sheath placed in right Femoral artery. [id number] cedwards 05:46 PM HR=71 bpm, DHYZ=772/70 mmhg, HuP0=448.0 %, Comment=SR 05:47 PM Time: 17:32 Patient comfortable and pain free: Yes cedwards 05:47 PM Time: 17:32LOC: 4 = Oriented but drowsy cedwards 05:47 PM 6Fr FL 4 catheter inserted over the wire [facility] cedwards 05:48 PM LCA angiography performed in multiple views. cedwards 05:49 PM Recorded Pressure: Ao, HR=69, Condition=Condition 1 (Aorta) Ao 140/54/87 05:51 PM Recorded Pressure: Ao, HR=68, Condition=Condition 1 (Aorta) Ao 139/52/87 05:51 PM HR=69 bpm, KMLW=387/68 mmhg, UuB8=793.0 %, Comment=SR 05:56 PM Catheter removed cedwards 05:56 PM HR=68 bpm, YMBX=405/77 mmhg, ZhN4=037.0 %, Comment=SR 05:56 PM 6Fr FR 4 catheter inserted over the wire [facility] cedwards 05:56 PM Catheter selectively placed in left ventricle cedwards 05:57 PM Bolus angiogram of left Ventricle complete, hand injection cedwards 05:57 PM Recorded Pressure: LV, HR=71, Condition=Condition 1 (Left Ventricle) LV 152/-1/8 05:57 PM Recorded Pressure: LV, Ao, HR=71, Condition=Condition 1 (Left Ventricle) LV 146/-2/9, (Aorta) Ao 141/47/88 05:58 PM RCA angiography performed in multiple views. cedwards 05:58 PM Catheter removed cedwards 05:59 PM Lesion found in Proximal RCA. Pre Stenosis: 99 Pre JERSON Flow: 2: Partial Flow/Perfusion (> 1 but < 3) cedwards 05:59 PM Coronary Dominance: right cedwards 05:59 PM PCI Status Urgent cedwards 05:59 PM PCI Indication: PCI for high risk Non-STEMI or unstable angina cedwards 06:00 PM 6Fr JR 4 Cordis guide catheter was used to cannulate the PCI vessel successfully. reused? No cedwards 06:00 PM Time: 18:00 Angiomax 0.75mg/kg bolus: 10 ml Intravenous Given by Perico Hendrickson RN Cortes pump cedwards 06:00 PM Time: 18:00 Angiomax 1.75mg/kg/hr: 23 ml Intravenous Given by Perico Hendrickson RN Cortes pump cedwards 06:01 PM Recorded Pressure: Ao, HR=74, Condition=Condition 1 (Aorta) Ao 155/63/102 06:01 PM HR=72 bpm, QKPW=556/67 mmhg, UtF3=192.0 %, Comment=SR 06:01 PM .014 ChoICE PT Extra Support 300cm guide wire across target lesion- successful. reused? No cedwards 06:01 PM Inflation device was opened. cedwards 06:02 PM Lesion found in Proximal Circumflex. Pre Stenosis: 50 Pre JERSON Flow: cedwards 06:02 PM Right Coronary, Right Posterior Descending Arteries with Right Posterolateral and Acute Marginal branches with 99 % stenosis. If graft is supplying this area, 0 % stenosis cedwards 06:02 PM Recorded Pressure: Ao, HR=76, Condition=Condition 1 (Aorta) Ao 150/61/100 06:02 PM Time: 17:47LOC: 4 = Oriented but drowsy cedwards 06:02 PM Circumflex, Obtuse Marginal, Left Posterior Descending, and Left Posterolateral Coronary Arteries with 50 % stenosis. If graft is supplying this area, 0 % stenosis cedwards 06:02 PM Time: 17:47 Patient comfortable and pain free: Yes cedwards 06:06 PM HR=76 bpm, XOOQ=253/74 mmhg, ZpR8=229.0 %, Comment=SR 06:09 PM Guide wire removed intact. cedwards 06:10 PM .014 ChoICE PT Extra Support 300cm guide wire across target lesion- successful. reused? No cedwards 06:10 PM 3.0mm x 16mm Synergy drug-eluting stent across target lesion- successful Lot #[id number] cedwards 06:10 PM Recorded Pressure: Ao, HR=75, Condition=Condition 1 (Aorta) Ao 157/65/104 06:11 PM HR=72 bpm, POQC=482/71 mmhg, AzN7=562.0 %, Comment=SR 06:12 PM Stent deployed @ 14 gifty for 20 seconds cedwards 06:12 PM Stent delivery system removed intact. cedwards 06:13 PM Guide wire removed intact. cedwards 06:13 PM Guide catheter removed intact. cedwards 06:13 PM Right groin shot obtained cedwards 06:16 PM Time: 18:15 Plavix 300 mg Orally Given by Perico Hendrickson RN cedwards 06:16 PM Procedure completed at 18:16 cedwards 06:16 PM Did you address JERSON flow and Dominance? Yes cedwards 06:16 PM HR=70 bpm, ISLL=055/70 mmhg, XeK0=416.0 %, Comment=SR 06:17 PM Sign out completed: Radiation Dose 719.65 mGy Fluoro Time: 8.5 Isovue 370 - 200ml contrast 125 ml given by Bryan Gavin DO. Complications: NoneCardiac Rehab Consult needed: YesConfirmed administered medications: Yes cedwards 06:17 PM Isovue 370 - 200ml,1 Bottle(s) used. cedwards 06:17 PM Sheath left in place to be pulled on floor/holding areaV+Pad cedwards 06:17 PM Estimated Blood Loss: minimal cedwards 06:17 PM Post ECG NSR cedwards 06:18 PM Post Blood Pressure 151/70 cedwards 06:18 PM 18:18 Post Pulses Bilateral DP 1+ cedwards 06:18 PM Information taught Cardiac Cath and PCI cedwards 06:19 PM Education needs Procedure, Plan of Care, and Responsibilities of Patient in Care cedwards 06:19 PM Learning barriers :None cedwards 06:19 PM Education Methods Verbal cedwards 06:19 PM Education evaluation Able to repeat information cedwards 06:19 PM Opsite applied cedwards 06:19 PM Angiomax off cedwards 06:19 PM Site status No bleeding/hematoma - Rt Groin as reported by Leti Barcenas RT (R) at 18:19 cedwards 06:20 PM Plavix, Effient or Brilinta given Yes cedwards 06:20 PM Family placed in consult room. cedwards 06:20 PM Complications: None cedwards 06:20 PM Fluoro Time: 8.5 cedwards 06:21 PM Isovue 370 - 200ml contrast [address] Gavin. cedwards 06:21 PM Vitals capture stopped. 06:21 PM Radiation Dose 719.65 mGy cedwards 06:21 PM Patient out of room: 18:21 cedwards 06:21 PM Report given to 2N RN Pt taken to 2N Room #13. 18:21 cedwards Complications Complication None Hemodynamics Pressures Site Systolic/A Wave Diastolic/V Wave Mean AO 140 54 87 AO 139 52 87 LV 152 -1 8 LV 146 -2 9 AO 141 47 88 AO 155 63 102 AO 150 61 100 AO 157 65 104 Post Procedure Information Blood Pressure: 151/70 mmHg Rhythm: NSR Post procedural instructions were given Site Checks Time Location Status Staff Sheath In? Note 06:19 PM Rt Groin No bleeding/hematoma Leti Barcenas RT (R) Pulses Time Site Pre-Procedure Post-Procedure Note Bilateral DP & PT 1+ 6:18:00 PM Bilateral DP 1+ Updated by Rey William RN on 02/10/2018 6:31:41 PM electronically signed on 02/10/2018 6:32:57 PM with status of Final
[2018-02-10] MEDS ORDERED: *HR* Atropine Sulfate 1 MG/10 ML SYRINGE ONE (20:52)
[2018-02-10 22:58] LABS: Basophils # 0.1 K/mcL (0.0-0.2); Basophils % 0.7 %; Eosinophils # 0.1 K/mcL (0.0-0.6); Eosinophils % 1.3 %; Hematocrit 29.8 % (35.3-44.9); Hemoglobin 10.5 g/dL (11.5-15.4); Immature Granulocytes % 0.6 % (0-4); Lymphocytes # 1.8 K/mcL (0.6-4.6); Lymphocytes % 21.2 %; Mean Corpuscular HGB Conc 35.2 g/dL (31.6-35.5); Mean Corpuscular Hemoglobin 30.4 pg (28.0-33.3); Mean Corpuscular Volume 86.4 fL (83.0-100.0); Mean Platelet Volume 8.9 fL (9.4-12.4); Monocytes # 0.8 K/mcL (0.0-1.3); Monocytes % 9.5 %; Neutrophils # 5.6 K/mcL (1.6-8.9); Platelet Count 206 K/mcL (140-400); Red Blood Count 3.45 M/mcL (3.82-4.97); Red Cell Distribution Width 12.4 % (11.5-14.5); Segmented Neutrophils % 66.7 %
[2018-02-10 23:06] LABS: INR 1.1; Prothrombin Time 11.9 Seconds (9.4-12.1)
[2018-02-10 23:09] LABS: Activated Partial Thrombo Time 47.5 Seconds (26.0-36.0)
[2018-02-10 23:10] LABS: BUN/Creatinine Ratio 20 (6-26); Blood Urea Nitrogen 12 mg/dL (8-23); Calcium 8.7 mg/dL (8.6-10.3); Carbon Dioxide 22 mEq/L (23-29); Chloride 103 mEq/L (98-107); Glucose 100 mg/dL (70-105); Osmolality,Calculated 278 (280-300); Potassium 3.2 mEq/L (3.5-5.1); Sodium 134 mEq/L (136-145); eGFR For African Americans > 60 (> 60); eGFR For Non-African Americans > 60 (> 60)
[2018-02-10] MEDS ORDERED: Potassium Chloride Elixir 20 MEQ/15 ML UDC PO ONE (23:20)
[2018-02-10] MEDS: *HR* HYDROcodone/Acet 7.5/325 mg TABLET PO PRN (23:23)
[2018-02-11] MEDS: Cefepime HCl 1,000 MG in Water for inj. (sterile) 20 ML 10 ML IVP SCH ×2 (00:16→08:14)
[2018-02-11 04:18] LABS: Basophils # 0.1 K/mcL (0.0-0.2); Basophils % 0.7 %; Eosinophils # 0.1 K/mcL (0.0-0.6); Eosinophils % 1.4 %; Hematocrit 25.9 % (35.3-44.9); Immature Granulocytes % 0.4 % (0-4); Lymphocytes # 1.4 K/mcL (0.6-4.6); Lymphocytes % 17.8 %; Mean Corpuscular HGB Conc 34.7 g/dL (31.6-35.5); Mean Corpuscular Hemoglobin 30.3 pg (28.0-33.3); Mean Corpuscular Volume 87.2 fL (83.0-100.0); Mean Platelet Volume 8.8 fL (9.4-12.4); Monocytes # 0.8 K/mcL (0.0-1.3); Monocytes % 10.4 %; Neutrophils # 5.3 K/mcL (1.6-8.9); Platelet Count 173 K/mcL (140-400); Red Blood Count 2.97 M/mcL (3.82-4.97); Red Cell Distribution Width 12.3 % (11.5-14.5); Segmented Neutrophils % 69.3 %
[2018-02-11 04:33] LABS: BUN/Creatinine Ratio 20 (6-26); Blood Urea Nitrogen 11 mg/dL (8-23); Calcium 8.2 mg/dL (8.6-10.3); Carbon Dioxide 21 mEq/L (23-29); Chloride 106 mEq/L (98-107); Glucose 92 mg/dL (70-105); Osmolality,Calculated 277 (280-300); Potassium 3.5 mEq/L (3.5-5.1); Sodium 134 mEq/L (136-145); eGFR For African Americans > 60 (> 60); eGFR For Non-African Americans > 60 (> 60)
[2018-02-11] MEDS: *HR* Heparin 5,000 UNIT/ML VIAL SQ SCH ×3 (06:07→20:57)
[2018-02-11] MEDS: 0.9 % Sodium Chloride 1,000 ML IVC SCH ×4 (07:02→16:37)
--- NOTE | 2018-02-11 07:25 | Event Note ---
Date of Encounter: 02/10/18 Time of Encounter: 22:10 Rapid Response was called around 10pm, arrived to bedside immediately. patient underwent LHC earlier today, had sheath removal after which she had an acute change in mental status with confusion, disorientation and speaking inappropriately. She has no focal deficits; Stat CT head, basic labs were ordered; finger stick glucose normal. Vitals stable. Case d/w [facility] , after TeleConference and neurological assessment, patient was noted to be completely alert and oriented, with no focal deficits. CT head showed no acute abnormality. Recommend checking MRI brain. Explained plan of care to patient and her son at bedside, verbalized understanding. Continue ASA and statin, return to 2N.
[2018-02-11] MEDS: Isosorbide MONOnitrate (24 HR) 30 MG TAB.ER.24H PO SCH (08:13)
[2018-02-11] MEDS: *HR* HYDROcodone/Acet 7.5/325 mg TABLET PO PRN ×2 (08:13→16:40)
[2018-02-11] MEDS: Aspirin Enteric Coated 81 MG Tablet PO SCH (08:13)
[2018-02-11] MEDS: amLODIPine 5 MG TABLET PO SCH (08:13)
[2018-02-11] MEDS: Sennosides 8.6 MG TABLET PO SCH (08:14)
[2018-02-11] MEDS: hydrOXYzine pamoate 25 MG CAPSULE PO SCH ×3 (08:15→20:58)
--- NOTE | 2018-02-11 11:27 | Cardiology Progress Note ---
Date of Encounter: 02/11/18 Time of Encounter: 11:24 Assessment and Plan (1) S/P coronary artery stent placement Current Visit: Yes Status: Acute S/p LHC yesterday for abnormal stress test and angina. LHC showed severe one vessel CAD, EF 55%, successful PTCA/CRYSTAL to pRCA. 50% pLCx stenosis. DAPT (ASA and Plavix) uninterrupted x 1 year. Pt verbalizes understanding. Continue Statin and BB. TTE EF preserved. Right femoral access site healing well. No bleeding, hematoma or ecchymosis noted. Reports intermittent chest soreness, improved from chest pain prior to LHC. Intermittent ear pain still noted. On Imdur 30mg daily. Will increase to 60mg daily. HGB was 10.5 yesterday, 9.0 today, suspect dilutional s/p LHC IV fluids. Denies active bleeding. Recommend close monitoring of H&H. Developed AMS yesterday evening, lasted [address] negative, MRI ordered to further evaluate. A&O x 3 currently. Management per primary team. Cardiology signing off. Reconsult PRN. Will coordinate outpt follow-up in 3-4 weeks. (2) CAD (coronary artery disease) Current Visit: Yes Status: Acute As above, s/p PCI to pRCA. ASA, Plavix, Statin, BB, Nitrates. Qualifiers: Coronary Disease-Associated Artery/Lesion type: [place] artery [place] vs. transplanted heart: [place] heart Associated angina: angina presence unspecified Qualified Code(s): I25.10 - Atherosclerotic heart disease of [place] coronary artery without angina pectoris (3) Hypertension Current Visit: Yes Status: Acute Now better controlled on Norvasc and Lopressor. Qualifiers: Hypertension type: essential hypertension Qualified Code(s): I10 - Essential (primary) hypertension Discussion w patient/family: The assessment and plan as outlined above was discussed with the patient and/or family members who expressed understanding and agreement. All questions were answered. Thank you for involving us in the care of your patient. Please call with any questions. I will discuss all the above with Dr. Esparza and make changes as necessary. Subjective Principal diagnosis: CAD, s/p PCI, UTI Interval history: LHC yesterday revealed severe one vessel CAD. EF 55%, successful PTCA/CRYSTAL to pRCA. 50% pLCx. Pt reports occasional chest soreness overnight, but much improved to her chest pain prior to C. Reports intermittent bilateral ear discomfort. Rapid response called yesterday evening due to acute mental status changes. Head CT negative. Symptoms resolved after 2 hours, brain MRI ordered as well, not yet completed. Pt is alert and oriented x 3 currently. HGB 9.0 today, was 10.5 yesterday. Pt denies active bleeding. Objective Vital Signs, Last 4 Hours Temp Pulse Resp BP Pulse Ox 02/11/18 08:00 73 02/11/18 07:50 97.7 F 79 21 140/68 98 Vital Signs Temp Pulse Resp BP Pulse Ox 02/11/18 11:25 98.1 F 66 20 125/60 97 02/11/18 08:00 73 02/11/18 07:50 97.7 F 79 21 140/68 98 02/11/18 04:00 68 115/59 02/11/18 03:11 97.7 F 70 16 121/58 02/11/18 03:00 71 113/52 02/11/18 02:00 71 118/57 02/11/18 01:00 73 113/56 02/11/18 00:00 85 139/66 02/10/18 23:50 98.3 F 02/10/18 23:30 90 02/10/18 21:55 97 146/64 02/10/18 21:45 97 20 146/64 02/10/18 21:40 96 15 125/69 97 02/10/18 21:35 95 19 140/57 97 02/10/18 21:30 97 18 145/64 96 02/10/18 21:25 94 19 147/65 97 18 21:20 93 17 152/65 95 02/10/18 21:15 97 145/64 02/10/18 21:00 94 147/71 02/10/18 20:45 73 157/76 02/10/18 20:30 71 167/78 02/10/18 20:20 75 18 20:15 72 160/78 02/10/18 20:00 77 167/81 02/10/18 19:45 78 166/79 02/10/18 19:30 75 160/80 02/10/18 19:05 71 16 159/83 98 02/10/18 19:00 73 159/83 02/10/18 18:59 98.8 F 73 14 155/73 97 02/10/18 15:51 98.0 F 74 16 137/75 96 02/10/18 11:48 98.1 F 71 16 135/66 96 Intake and Output 02/10/18 02/11/18 02/11/18 23:59 07:59 15:59 Intake Total 1000 / 1000 682 / 682 Output Total 400 / 400 550 / 550 Balance -390 / -390 450 / 450 682 / 682 Intake: IV Fluids 1000 / 1000 202 / 202 0.9 % Sodium Chloride 1,000 ML 1000 / 1000 192 / 192 @ 60 mls/hr IVC .[id number] [facility] Rx #:[id number] Maxipime 1,000 MG In Water for inj. (sterile) 10 ML @ 150 mls/ hr IVP Q8HR [facility] Rx#:[id number] Oral 480 / 480 Output: Urine 400 / 400 550 / 550 Other: Meal Breakfast Percent of Meal Consumed 90% # Voids 1 Weight 69.3 kg General: Conversant, No Apparent Distress HEENT: Atraumatic, Normocephaly, Mucus Membranes Moist Neck: No JVD, Normal carotid pulses Cardiac: Reg Rate and Rhythm, Normal S1 and S2, No Murmur Lungs: Normal Breath Sounds, No Wheeze, Rales, Rhonchi Neuro: Alert and responsive, No focal deficits noted Abdomen: Soft, Non-Tender Skin: Other (right femoral access site healing well. No bleeding, hematoma or ecchymosis noted.) Musculoskeletal: No Chest Wall Tenderness Extremities: No Clubbing, No Cyanosis, No Edema, Normal Pulses Results 02/11/18 03:53 02/11/18 03:53 Lab Results 02/10/18 02/10/18 02/10/18 22:45 22:45 22:45 WBC 8.4 D Hgb 10.5 L Hct 29.8 L Plt Count 206 INR 1.1 APTT 47.5 H Sodium 134 L Potassium 3.2 L Chloride 103 Carbon Dioxide 22 L BUN 12 Creatinine 0.59 L Glucose 100 Calcium 8.7 Troponin I 02/10/18 02/11/18 02/11/18 22:45 03:53 03:53 WBC 7.6 Hgb 9.0 L D Hct 25.9 L Plt Count 173 INR APTT Sodium 134 L Potassium 3.5 Chloride 106 Carbon Dioxide 21 L BUN 11 Creatinine 0.54 L Glucose 92 Calcium 8.2 L Troponin I 0.05 H* Short CBC 02/11/18 02/10/18 Range/Units 03:53 22:45 WBC 7.6 8.4 D (4.3-11.1) K/mcL Hgb 9.0 L D 10.5 L (11.5-15.4) g/dL Hct 25.9 L 29.8 L (35.3-44.9) % Plt Count 173 206 (140-400) K/mcL Neutrophils # 5.3 5.6 (1.6-8.9) K/mcL BMP 02/11/18 02/10/18 Range/Units 03:53 22:45 Sodium 134 L 134 L (136-145) mEq/L Potassium 3.5 3.2 L (3.5-5.1) mEq/L Chloride 106 103 (98-107) mEq/L Carbon Dioxide 21 L 22 L (23-29) mEq/L BUN 11 12 (8-23) mg/dL Creatinine 0.54 L 0.59 L (0.60-1.20) mg/dL Glucose 92 100 (70-105) mg/dL Calcium 8.2 L 8.7 (8.6-10.3) mg/dL Cardiac Enzymes 02/10/18 Range/Units 22:45 Troponin I 0.05 H* (< 0.04) ng/mL Impressions Head CT 02/10/18 22:01 IMPRESSION: No acute intracranial abnormality. D/ / Pepper Bob MD / Pepper Bob MD Interpreting Provider: Pepper Bob MD Active Medications Hydrocodone Bitart/Acetaminophen ([place] 7.5-325 Mg) 1 tab PO Q4H PRN PRN Reason: Pain Stop: 08/10/18 09:46 Last Admin: 02/11/18 08:13 Dose: 1 tab Amlodipine Besylate (Norvasc) 5 mg PO DAILY [facility] PRN Reason: Protocol Stop: 08/11/18 13:16 Last Admin: 02/11/18 08:13 Dose: 5 mg Aspirin (Aspirin Ec) 81 mg PO DAILY [facility] Stop: 08/11/18 09:01 Last Admin: 02/11/18 08:13 Dose: 81 mg Atorvastatin Calcium (Lipitor) 20 mg PO HS [facility] Stop: 08/10/18 21:01 Last Admin: 02/10/18 23:23 Dose: 20 mg Buspirone HCl (Buspar) 10 mg PO TID [facility] Stop: 08/10/18 15:01 Last Admin: 02/11/18 08:13 Dose: 10 mg Clopidogrel Bisulfate (Plavix) 75 mg PO DAILY [facility] Stop: 08/13/18 09:01 Last Admin: 02/11/18 08:14 Dose: 75 mg Dicyclomine HCl (Bentyl) 20 mg PO QID PRN PRN Reason: STOMACH PAIN AND NAUSEA Stop: 08/10/18 10:07 Heparin Sodium (Porcine) (Heparin) 5,000 unit SQ Q8HCO [facility] Stop: 08/10/18 14:01 Last Admin: 02/11/18 06:07 Dose: 5,000 unit Hydralazine HCl (Hydralazine) 10 mg IVP Q6HR PRN PRN Reason: SBP >150 Stop: 08/12/18 20:49 Last Admin: 02/10/18 20:53 Dose: 10 mg Hydroxyzine Pamoate (Hydroxyzine Pamoate) 25 mg PO TID [facility] Stop: 08/10/18 15:01 Last Admin: 02/11/18 08:15 Dose: 25 mg Sodium Chloride (0.9 % Sodium Chloride) 1,000 mls @ 60 mls/hr IVC .[id number] [facility] Stop: 08/11/18 08:46 Last Infusion: 02/11/18 10:29 Dose: 60 mls/hr Cefepime HCl 1,000 mg/ Sterile (Water) 10 mls @ 150 mls/hr IVP Q8HR [facility] Stop: 08/12/18 16:01 Last Admin: 02/11/18 08:14 Dose: 150 mls/hr Sodium Chloride (0.9 % Sodium Chloride) 1,000 mls @ 100 mls/hr IVC .Q10H [facility] Stop: 08/12/18 18:46 Last Admin: 02/11/18 07:02 Dose: 100 mls/hr Ibuprofen (Motrin) 400 mg PO Q6HR PRN PRN Reason: Mild Pain Stop: 08/11/18 22:54 Last Admin: 02/10/18 20:19 Dose: 400 mg Isosorbide Mononitrate (Imdur) 30 mg PO DAILY [facility] Stop: 08/11/18 09:01 Last Admin: 02/11/18 08:13 Dose: 30 mg Metoprolol Tartrate (Lopressor) 25 mg PO BID [facility] Stop: 08/13/18 09:01 Last Admin: 02/11/18 10:27 Dose: 25 mg Naloxone HCl (Narcan) 0.4 mg IVP Q2MIN PRN PRN Reason: SEE COMMENTS Stop: 08/10/18 09:43 Nitroglycerin (Nitroglycerin) 0.4 mg SL Q5MIN PRN PRN Reason: Chest Pain Stop: 08/10/18 10:05 Senna (Senna) 8.6 mg PO DAILY [facility] Stop: 08/12/18 12:46 Last Admin: 02/11/18 08:14 Dose: 8.6 mg - Imaging and Cardiology Stress Test: report reviewed Echo: report reviewed Cardiac cath: report reviewed Consult Discharge Plan - Plan Additional Instructions: RISK FACTORS: STOP SMOKING: If you smoke, STOP. Smoking or tobacco use significantly increases your risk of heart disease because nicotine causes the arteries to narrow or constrict. It also causes fats to stick to the artery. Your chances of having a heart attack are greatly increased if you continue to smoke. For more information, call the education line for smoking cessation 2-143-HKMEJGD EAT A LOW FAT/CHOLESTEROL/SODIUM DIET: This diet may help reduce your chances of having a heart attack. LIFTING: Avoid lifting anything more than 10 pounds for 5-7 days Prior to straining, laughing, sneezing and/or coughing, apply manual pressure directly over insertion site. ACTIVITY: You may walk or climb stairs as tolerated You can resume sexual activity as tolerated In general, you are encouraged to engage in a minimum of 30 minutes or more of moderate intensity physical activity, such as brisk walking, daily or at least 3 -4 times weekly BATHING Do not submerge the site into water (bath tub, hot tub, swimming pool) for 1 week. This can be a source for infection into the blood stream. You may shower after 24 hours SITE CARE: After 24 hours, you may remove the dressing and leave the site open to air. Keep the site clean and dry. Clean gently and pat dry. You can expect bruising and tenderness that gradually resolve within a week or two. Return to work as instructed per your physician Resume driving as instructed per physician Keep all scheduled follow up appointments Resume medications as instructed IMPORTANT: If prescribed a Platelet Aggregation Inhibitor such as, Plavix, Brilinta or Effient: Duration of therapy is minimum one year These medications are often used in combination with Aspirin in prevention of future heart attacks Never discontinue unless consult with your Automotive Professional STROKE (CVA) Risk factors for a stroke are: Age, cigarette smoking, diabetes, excessive alcohol consumption, family history, high blood pressure, overweight, physical inactivity, prior stroke, heart attack, diagnosis of carotid artery stenosis or other artery disease. Warning signs: Sudden numbness or weakness of the face, arm or leg; especially on one side of the body, sudden confusion, trouble speaking or understanding, sudden trouble seeing in one or both eyes, sudden trouble walking, dizziness, loss of balance or coordination, sudden severe headache with no cause. Call 911 or go to the Emergency Room. CONGESTIVE HEART FAILURE: If you have been diagnosed with Congestive Heart Failure (CHF) and your symptoms return, make an appointment with your physician Weigh yourself daily. Notify your physician if you have a weight gain of two or more pounds in one day or five or more pounds in one week. If you experience any difficulty breathing, please call 911 BLEEDING: Although the risk of bleeding is minimal, it can happen. If you have any bleeding from the site, apply firm pressure above the puncture site for 10-15 minutes. If the bleeding does not stop, continue manual pressure and call 911 Contact your physician if: You develop a fever greater than 101 degrees Fahrenheit Your site becomes reddened or has any drainage You have an increase in pain or burning at the site or if a large knot forms at the site. If you experience chest pain, shortness of breath, dizziness, or extreme tiredness, stop the activity and rest. Please notify your physicians office if you experience any of these symptoms and they are not relieved by rest please call 911! Referrals: Tessa Stacy, MARINE EQUIPMENT ENGINEER [Primary Care Provider] - 02/15/18 1:00 pm Bryan Gavin DO [Partnered Physician] - (office will call patient at home with follow up appointment)
[2018-02-11] MEDS ORDERED: Isosorbide MONOnitrate (24 HR) 30 MG TAB.ER.24H PO ONE (11:36)
--- NOTE | 2018-02-11 15:22 | Internal Med Progress Note ---
Date of Encounter: 02/11/18 Time of Encounter: 15:19 - Assessment and plan (1) Infection with ESBL Klebsiella oxytoca Current Visit: Yes Status: Acute Assessment and plan: Acute metabolic encephalopathy likely secondary to UTI due to Klebsiella oxytoca ESBL Discontinue cefepime Start ertapenem IV Order blood cultures The patient had an episode of confusion and slurred speech last night, CT scan of the head showed no acute intracranial abnormality. MRI of the brain is pending (2) S/P coronary artery stent placement Current Visit: Yes Status: Acute Assessment and plan: S/p LHC yesterday for abnormal stress test and angina. LHC showed severe one vessel CAD, EF 55%, successful PTCA/CRYSTAL to pRCA. 50% pLCx stenosis. DAPT (ASA and Plavix) uninterrupted x 1 year. Admitted for chest pain, anginal equivalent and accelerated hypertension. Troponins elevated with peak at 0.06. Stress test positive. -TTE showed a preserved ejection fraction with moderate left ventricular diastolic dysfunction, mild-moderate mitral regurgitation, mild aortic regurgitation, mild tricuspid regurgitation, mild pulmonic regurgitation without pulmonary hypertension. Continuous telemetry On aspirin, statin and Imdur. Metoprolol (3) UTI (urinary tract infection) Current Visit: Yes Status: Acute Qualifiers: Urinary tract infection type: acute cystitis Hematuria presence: without hematuria Qualified Code(s): N30.00 - Acute cystitis without hematuria (4) Hypertension Current Visit: Yes Status: Acute Assessment and plan: Norvasc added per cardiology Continue to closely monitor blood pressure and had adjunct therapy as necessary Qualifiers: Hypertension type: essential hypertension Qualified Code(s): I10 - Essential (primary) hypertension (5) Fibromyalgia Current Visit: Yes Status: Acute Assessment and plan: Well Controlled, continue home medications. (6) Elevated troponin Current Visit: Yes Status: Acute Assessment and plan: Management as described above - Time Spent With Patient Total time spent is greater than 50% in coordination of care (as documented) at patient's floor/unit and/or counseling patient: - Subjective Interval history: Became very confused last night, with slurred speech, symptoms have resolved. Still complaining of severe dysuria, denies any chest pain or shortness of breath, no diarrhea or fevers - Constitutional Vitals: Temp Pulse Resp BP Pulse Ox 98.1 F 66 20 125/60 97 02/11/18 11:25 05/04/18 11:25 02/11/18 11:25 02/11/18 11:25 02/11/18 11:25 General appearance: Present: cooperative, A&O X 3, pleasant, no acute distress, answers questions appropriately - Head Head exam: Present: atraumatic, normocephalic - Eye Eye exam: Present: PERRL, conjuntiva pink, sclera anicteric Pupils: Present: PERRL - Neck Neck exam general surgery: Present: supple, trachea midline. Absent: lymphadenopathy - Respiratory Respiratory exam: Present: CTAB. Absent: accessory muscle use, rales, rhonchi, wheezes - Cardiovascular Cardiovascular exam: Present: RRR, +S1, +S2. Absent: diastolic murmur, gallop, rubs, systolic murmur - GI/Abdominal GI/Abdominal exam: Present: normal bowel sounds, soft, no peritoneal signs. Absent: distended, tenderness - Extremities Exam Extremities exam: Present: warm, radial pulses palpable and symmetrical. Absent : calf tenderness, cyanotic, pedal edema Additional comments: Right groin wound without signs of hematoma or infection - Neurological Exam Neurological exam: Present: CN II-XII intact, oriented X3, no focal deficits. Absent: pronater drift, facial droop, speech deficit - Skin Skin exam: Present: dry, intact Internal Medicine: Result - Labs CBC & Chem 7: 02/11/18 03:53 02/11/18 03:53 Labs: Short CBC 02/10/18 02/11/18 Range/Units 22:45 03:53 WBC 8.4 D 7.6 (4.3-11.1) K/mcL Hgb 10.5 L 9.0 L D (11.5-15.4) g/dL Hct 29.8 L 25.9 L (35.3-44.9) % Plt Count 206 173 (140-400) K/mcL Neutrophils # 5.6 5.3 (1.6-8.9) K/mcL BMP 02/10/18 02/11/18 22:45 03:53 Sodium 134 L 134 L Potassium 3.2 L 3.5 Chloride 103 106 Carbon Dioxide 22 L 21 L BUN 12 11 Creatinine 0.59 L 0.54 L Glucose 100 92 Calcium 8.7 8.2 L Cardiac Enzymes 02/10/18 Range/Units 22:45 Troponin I 0.05 H* (< 0.04) ng/mL - ABG Interpretation ABG results: PT/INR, D-dimer PT 11.9 Seconds (9.4-12.1) 02/10/18 22:45 - Impressions Impressions Head CT 02/10/18 22:01 IMPRESSION: No acute intracranial abnormality. D/ / Pepper Bob MD / Pepper Bob MD Interpreting Provider: Pepper Bob MD Brain MRI 02/11/18 07:20 IMPRESSION: Mild to moderate chronic small vessel ischemic changes. No acute brain parenchymal abnormality. D/ / 02/11/2018 15:15:35 Cristina Blanco MD / jennifer Interpreting Provider: Cristina Blanco MD Consult Discharge Plan - Plan Additional Instructions: RISK FACTORS: STOP SMOKING: If you smoke, STOP. Smoking or tobacco use significantly increases your risk of heart disease because nicotine causes the arteries to narrow or constrict. It also causes fats to stick to the artery. Your chances of having a heart attack are greatly increased if you continue to smoke. For more information, call the education line for smoking cessation 4-679-NDGATZD EAT A LOW FAT/CHOLESTEROL/SODIUM DIET: This diet may help reduce your chances of having a heart attack. LIFTING: Avoid lifting anything more than 10 pounds for 5-7 days Prior to straining, laughing, sneezing and/or coughing, apply manual pressure directly over insertion site. ACTIVITY: You may walk or climb stairs as tolerated You can resume sexual activity as tolerated In general, you are encouraged to engage in a minimum of 30 minutes or more of moderate intensity physical activity, such as brisk walking, daily or at least 3 -4 times weekly BATHING Do not submerge the site into water (bath tub, hot tub, swimming pool) for 1 week. This can be a source for infection into the blood stream. You may shower after 24 hours SITE CARE: After 24 hours, you may remove the dressing and leave the site open to air. Keep the site clean and dry. Clean gently and pat dry. You can expect bruising and tenderness that gradually resolve within a week or two. Return to work as instructed per your physician Resume driving as instructed per physician Keep all scheduled follow up appointments Resume medications as instructed IMPORTANT: If prescribed a Platelet Aggregation Inhibitor such as, Plavix, Brilinta or Effient: Duration of therapy is minimum one year These medications are often used in combination with Aspirin in prevention of future heart attacks Never discontinue unless consult with your Roof Truss Detailer STROKE (CVA) Risk factors for a stroke are: Age, cigarette smoking, diabetes, excessive alcohol consumption, family history, high blood pressure, overweight, physical inactivity, prior stroke, heart attack, diagnosis of carotid artery stenosis or other artery disease. Warning signs: Sudden numbness or weakness of the face, arm or leg; especially on one side of the body, sudden confusion, trouble speaking or understanding, sudden trouble seeing in one or both eyes, sudden trouble walking, dizziness, loss of balance or coordination, sudden severe headache with no cause. Call 911 or go to the Emergency Room. CONGESTIVE HEART FAILURE: If you have been diagnosed with Congestive Heart Failure (CHF) and your symptoms return, make an appointment with your physician Weigh yourself daily. Notify your physician if you have a weight gain of two or more pounds in one day or five or more pounds in one week. If you experience any difficulty breathing, please call 911 BLEEDING: Although the risk of bleeding is minimal, it can happen. If you have any bleeding from the site, apply firm pressure above the puncture site for 10-15 minutes. If the bleeding does not stop, continue manual pressure and call 911 Contact your physician if: You develop a fever greater than 101 degrees Fahrenheit Your site becomes reddened or has any drainage You have an increase in pain or burning at the site or if a large knot forms at the site. If you experience chest pain, shortness of breath, dizziness, or extreme tiredness, stop the activity and rest. Please notify your physicians office if you experience any of these symptoms and they are not relieved by rest please call 911! Referrals: Tessa Stacy CNP [Primary Care Provider] - 02/15/18 1:00 pm Bryan Gavin DO [Partnered Physician] - (office will call patient at home with follow up appointment)
[2018-02-11] MEDS ORDERED: Ertapenem 1,000 MG in 0.9 % Sodium Chloride Mini Bag 100 ML IVPB SCH (16:00)
[2018-02-11] MEDS: Ertapenem 1,000 MG in 0.9 % Sodium Chloride Mini Bag 100 ML IVPB SCH (16:36)
[2018-02-11] MEDS: Ibuprofen 400 MG TABLET PO PRN (20:58)
[2018-02-12 05:04] LABS: Basophils # 0.1 K/mcL (0.0-0.2); Basophils % 0.9 %; Eosinophils # 0.3 K/mcL (0.0-0.6); Eosinophils % 4.9 %; Hematocrit 24.7 % (35.3-44.9); Hemoglobin 8.5 g/dL (11.5-15.4); Immature Granulocytes % 0.5 % (0-4); Lymphocytes # 1.2 K/mcL (0.6-4.6); Lymphocytes % 22.5 %; Mean Corpuscular HGB Conc 34.4 g/dL (31.6-35.5); Mean Corpuscular Hemoglobin 30.1 pg (28.0-33.3); Mean Corpuscular Volume 87.6 fL (83.0-100.0); Mean Platelet Volume 9.3 fL (9.4-12.4); Monocytes # 0.8 K/mcL (0.0-1.3); Monocytes % 14.1 %; Neutrophils # 3.1 K/mcL (1.6-8.9); Platelet Count 163 K/mcL (140-400); Red Blood Count 2.82 M/mcL (3.82-4.97); Red Cell Distribution Width 12.4 % (11.5-14.5); Segmented Neutrophils % 57.1 %
[2018-02-12 05:24] LABS: BUN/Creatinine Ratio 15 (6-26); Blood Urea Nitrogen 8 mg/dL (8-23); Calcium 8.2 mg/dL (8.6-10.3); Carbon Dioxide 24 mEq/L (23-29); Chloride 108 mEq/L (98-107); Glucose 87 mg/dL (70-105); Osmolality,Calculated 282 (280-300); Potassium 3.6 mEq/L (3.5-5.1); Sodium 137 mEq/L (136-145); eGFR For African Americans > 60 (> 60); eGFR For Non-African Americans > 60 (> 60)
[2018-02-12] MEDS: *HR* Heparin 5,000 UNIT/ML VIAL SQ SCH (06:04)
[2018-02-12] MEDS: 0.9 % Sodium Chloride 1,000 ML IVC SCH (06:04)
[2018-02-12] MEDS: Sennosides 8.6 MG TABLET PO SCH (08:04)
[2018-02-12] MEDS: Ertapenem 1,000 MG in 0.9 % Sodium Chloride Mini Bag 100 ML IVPB SCH (08:05)
[2018-02-12] MEDS: amLODIPine 5 MG TABLET PO SCH (08:05)
[2018-02-12] MEDS: Aspirin Enteric Coated 81 MG Tablet PO SCH (08:05)
[2018-02-12] MEDS: hydrOXYzine pamoate 25 MG CAPSULE PO SCH ×3 (08:05→21:49)
[2018-02-12] MEDS: Isosorbide MONOnitrate (24 HR) 30 MG TAB.ER.24H PO SCH (08:05)
[2018-02-12 11:04] LABS: Hematocrit 26.6 % (35.3-44.9); Hemoglobin 9.2 g/dL (11.5-15.4)
--- NOTE | 2018-02-12 13:27 | Internal Med Progress Note ---
Date of Encounter: 02/12/18 Time of Encounter: 11:40 - Assessment and plan (1) Anemia Current Visit: Yes Status: Suspected Assessment and plan: Patient with acute anemia. Hemoglobin 8.5 today. We will monitor blood counts. Could be related to cardiac catheterization. We will also check iron, folic acid and B12 levels. Also check stool for occult blood. Qualifiers: Anemia type: other cause Other causes of anemia: acute posthemorrhagic Qualified Code(s): D62 - Acute posthemorrhagic anemia (2) UTI (urinary tract infection) Current Visit: Yes Status: Acute Assessment and plan: Patient with acute urinary tract infection with MDRO Klebsiella. Will need IV ertapenem for 14 days. We will consult rn social services to make arrangements for this. Qualifiers: Urinary tract infection type: acute cystitis Hematuria presence: without hematuria Qualified Code(s): N30.00 - Acute cystitis without hematuria (3) Hypertension Current Visit: Yes Status: Chronic Assessment and plan: Blood pressure elevated this morning but since improved. We will continue to monitor. Continue current medications Qualifiers: Hypertension type: essential hypertension Qualified Code(s): I10 - Essential (primary) hypertension (4) S/P coronary artery stent placement Current Visit: Yes Status: Acute Assessment and plan: Continue dual antiplatelet therapy, beta phil. (5) Elevated troponin Current Visit: Yes Status: Acute Assessment and plan: With underlying coronary artery disease. Status post left heart catheterization with drug-eluting stent placement to proximal RCA. On dual antiplatelet therapy. (6) Infection with ESBL Klebsiella oxytoca Current Visit: Yes Status: Acute Assessment and plan: On ertapenem (7) CAD (coronary artery disease) Current Visit: Yes Status: Acute Qualifiers: Coronary Disease-Associated Artery/Lesion type: [place] artery [place] vs. transplanted heart: [place] heart Associated angina: angina presence unspecified Qualified Code(s): I25.10 - Atherosclerotic heart disease of [place] coronary artery without angina pectoris - Time Spent With Patient Total time spent is greater than 50% in coordination of care (as documented) at patient's floor/unit and/or counseling patient: - Subjective Interval history: Patient is lying in bed. Comfortable. Denies any chest pain or palpitations. Denies any dizziness. No slurred speech. No focal weakness or numbness. Feels that she is back to her baseline. - Constitutional Vitals: Temp Pulse Resp BP Pulse Ox 98.4 F 70 18 128/71 97 02/12/18 12:04 02/12/18 12:04 02/12/18 12:04 02/12/18 12:04 02/12/18 11:38 General appearance: Present: cooperative, A&O X 3, pleasant, no acute distress, answers questions appropriately - Respiratory Respiratory exam: Present: CTAB. Absent: accessory muscle use, rales, rhonchi, wheezes - Cardiovascular Cardiovascular exam: Present: RRR, +S1, +S2. Absent: diastolic murmur, gallop, rubs, systolic murmur - GI/Abdominal GI/Abdominal exam: Present: normal bowel sounds, soft, no peritoneal signs. Absent: distended, tenderness - Extremities Exam Extremities exam: Present: warm, radial pulses palpable and symmetrical. Absent : calf tenderness, cyanotic, pedal edema - Neurological Exam Neurological exam: Present: CN II-XII intact, oriented X3, no focal deficits. Absent: pronater drift, facial droop, speech deficit - Skin Skin exam: Present: dry, intact Internal Medicine: Result - Labs CBC & Chem 7: 02/12/18 10:39 02/12/18 04:03 Labs: Short CBC 02/12/18 Range/Units 10:39 Hgb 9.2 L (11.5-15.4) g/dL Hct 26.6 L (35.3-44.9) % - ABG Interpretation ABG results: PT/INR, D-dimer PT 11.9 Seconds (9.4-12.1) 02/10/18 22:45 Consult Discharge Plan - Plan Additional Instructions: RISK FACTORS: STOP SMOKING: If you smoke, STOP. Smoking or tobacco use significantly increases your risk of heart disease because nicotine causes the arteries to narrow or constrict. It also causes fats to stick to the artery. Your chances of having a heart attack are greatly increased if you continue to smoke. For more information, call the education line for smoking cessation 2-359-QECZXUQ EAT A LOW FAT/CHOLESTEROL/SODIUM DIET: This diet may help reduce your chances of having a heart attack. LIFTING: Avoid lifting anything more than 10 pounds for 5-7 days Prior to straining, laughing, sneezing and/or coughing, apply manual pressure directly over insertion site. ACTIVITY: You may walk or climb stairs as tolerated You can resume sexual activity as tolerated In general, you are encouraged to engage in a minimum of 30 minutes or more of moderate intensity physical activity, such as brisk walking, daily or at least 3 -4 times weekly BATHING Do not submerge the site into water (bath tub, hot tub, swimming pool) for 1 week. This can be a source for infection into the blood stream. You may shower after 24 hours SITE CARE: After 24 hours, you may remove the dressing and leave the site open to air. Keep the site clean and dry. Clean gently and pat dry. You can expect bruising and tenderness that gradually resolve within a week or two. Return to work as instructed per your physician Resume driving as instructed per physician Keep all scheduled follow up appointments Resume medications as instructed IMPORTANT: If prescribed a Platelet Aggregation Inhibitor such as, Plavix, Brilinta or Effient: Duration of therapy is minimum one year These medications are often used in combination with Aspirin in prevention of future heart attacks Never discontinue unless consult with your Electric Tripper Machine Operator STROKE (CVA) Risk factors for a stroke are: Age, cigarette smoking, diabetes, excessive alcohol consumption, family history, high blood pressure, overweight, physical inactivity, prior stroke, heart attack, diagnosis of carotid artery stenosis or other artery disease. Warning signs: Sudden numbness or weakness of the face, arm or leg; especially on one side of the body, sudden confusion, trouble speaking or understanding, sudden trouble seeing in one or both eyes, sudden trouble walking, dizziness, loss of balance or coordination, sudden severe headache with no cause. Call 911 or go to the Emergency Room. CONGESTIVE HEART FAILURE: If you have been diagnosed with Congestive Heart Failure (CHF) and your symptoms return, make an appointment with your physician Weigh yourself daily. Notify your physician if you have a weight gain of two or more pounds in one day or five or more pounds in one week. If you experience any difficulty breathing, please call 911 BLEEDING: Although the risk of bleeding is minimal, it can happen. If you have any bleeding from the site, apply firm pressure above the puncture site for 10-15 minutes. If the bleeding does not stop, continue manual pressure and call 911 Contact your physician if: You develop a fever greater than 101 degrees Fahrenheit Your site becomes reddened or has any drainage You have an increase in pain or burning at the site or if a large knot forms at the site. If you experience chest pain, shortness of breath, dizziness, or extreme tiredness, stop the activity and rest. Please notify your physicians office if you experience any of these symptoms and they are not relieved by rest please call 911! Referrals: Tessa Stacy, LADONNA [Primary Care Provider] - 02/15/18 1:00 pm Bryan Gavin, [Partnered Physician] - (office will call patient at home with follow up appointment)
[2018-02-12] MEDS: *HR* HYDROcodone/Acet 7.5/325 mg TABLET PO PRN ×2 (14:53→21:48)
[2018-02-12] MEDS: Ibuprofen 400 MG TABLET PO PRN ×2 (14:55→21:48)
[2018-02-13] MEDS: *HR* Heparin 5,000 UNIT/ML VIAL SQ SCH ×3 (00:17→18:43)
[2018-02-13 04:11] LABS: Basophils # 0.1 K/mcL (0.0-0.2); Basophils % 0.9 %; Eosinophils # 0.2 K/mcL (0.0-0.6); Eosinophils % 4.5 %; Hematocrit 23.6 % (35.3-44.9); Hemoglobin 8.1 g/dL (11.5-15.4); Immature Granulocytes % 0.6 % (0-4); Lymphocytes # 1.7 K/mcL (0.6-4.6); Lymphocytes % 31.3 %; Mean Corpuscular HGB Conc 34.3 g/dL (31.6-35.5); Mean Corpuscular Hemoglobin 30.6 pg (28.0-33.3); Mean Corpuscular Volume 89.1 fL (83.0-100.0); Mean Platelet Volume 9.2 fL (9.4-12.4); Monocytes # 0.8 K/mcL (0.0-1.3); Monocytes % 15.7 %; Neutrophils # 2.5 K/mcL (1.6-8.9); Platelet Count 136 K/mcL (140-400); Red Blood Count 2.65 M/mcL (3.82-4.97); Red Cell Distribution Width 12.6 % (11.5-14.5)
[2018-02-13 04:31] LABS: % Iron Saturation 18 % (15-50); Ferritin 85 ng/ml (10-120); Iron 47 mcg/dL (50-170); Transferrin 185 mg/dL (203-362)
[2018-02-13 04:57] LABS: Vitamin B12 160 pg/mL (250-1100)
[2018-02-13 04:58] LABS: Folate > 22.3 ng/mL (3.0-16.0)
[2018-02-13] MEDS: Ibuprofen 400 MG TABLET PO PRN (10:08)
[2018-02-13] MEDS: Isosorbide MONOnitrate (24 HR) 30 MG TAB.ER.24H PO SCH (10:09)
[2018-02-13] MEDS: Aspirin Enteric Coated 81 MG Tablet PO SCH (10:09)
[2018-02-13] MEDS: hydrOXYzine pamoate 25 MG CAPSULE PO SCH ×3 (10:09→21:20)
[2018-02-13] MEDS: amLODIPine 5 MG TABLET PO SCH (10:09)
[2018-02-13] MEDS: Sennosides 8.6 MG TABLET PO SCH (10:09)
[2018-02-13] MEDS: *HR* HYDROcodone/Acet 7.5/325 mg TABLET PO PRN ×2 (10:09→21:19)
[2018-02-13] MEDS: Cyanocobalamin (B-12) 1,000 MCG/ML VIAL SQ SCH (10:09)
[2018-02-13] MEDS: Ertapenem 1,000 MG in 0.9 % Sodium Chloride Mini Bag 100 ML IVPB SCH (10:10)
--- NOTE | 2018-02-13 12:17 | Internal Med Progress Note ---
Date of Encounter: 02/13/18 Time of Encounter: 10:40 - Assessment and plan (1) Anemia Current Visit: Yes Status: Acute Assessment and plan: Hemoglobin 8.1 today. Vitamin B12 levels are low. We will replete. Continue dual antiplatelet therapy. Patient will need upper GI endoscopy and colonoscopy but this can be done as outpatient if blood counts remained stable. Patient also has slightly low iron levels. We will replace orally. Qualifiers: Anemia type: B12 deficiency Vitamin B12 deficiency anemia type: unspecified B12 deficiency Qualified Code(s): D51.9 - Vitamin B12 deficiency anemia, unspecified (2) UTI (urinary tract infection) Current Visit: Yes Status: Acute Assessment and plan: With MDRO Klebsiella. Continue ertapenem for total of 14 days. We will arrange for EP IV and home infusion tomorrow. Qualifiers: Urinary tract infection type: acute cystitis Hematuria presence: without hematuria Qualified Code(s): N30.00 - Acute cystitis without hematuria (3) Hypertension Current Visit: Yes Status: Chronic Assessment and plan: Blood pressure is control but intermittently elevated. Continue amlodipine, metoprolol and Imdur. Qualifiers: Hypertension type: essential hypertension Qualified Code(s): I10 - Essential (primary) hypertension (4) S/P coronary artery stent placement Current Visit: Yes Status: Acute Assessment and plan: Continue dual antiplatelet therapy, metoprolol and statin. (5) Elevated troponin Current Visit: Yes Status: Acute (6) Infection with ESBL Klebsiella oxytoca Current Visit: Yes Status: Acute (7) CAD (coronary artery disease) Current Visit: Yes Status: Acute Qualifiers: Coronary Disease-Associated Artery/Lesion type: [place] artery [place] vs. transplanted heart: [place] heart Associated angina: angina presence unspecified Qualified Code(s): I25.10 - Atherosclerotic heart disease of [place] coronary artery without angina pectoris - Time Spent With Patient Total time spent is greater than 50% in coordination of care (as documented) at patient's floor/unit and/or counseling patient: - Subjective Interval history: Patient is sitting up in chair. Doing well overall. No chest pain. No shortness of breath. Reports mild dysuria. No hematuria. No fever or chills overnight. No dizziness or lightheadedness. - Constitutional Vitals: Temp Pulse Resp BP Pulse Ox 98.7 F 50 16 129/66 99 02/13/18 11:21 02/13/18 11:21 02/13/18 11:21 02/13/18 11:21 02/13/18 11:21 General appearance: Present: cooperative, A&O X 3, pleasant, no acute distress, answers questions appropriately - Neck Neck exam general surgery: Present: supple, trachea midline. Absent: lymphadenopathy - Respiratory Respiratory exam: Present: CTAB. Absent: accessory muscle use, rales, rhonchi, wheezes - Cardiovascular Cardiovascular exam: Present: RRR, +S1, +S2. Absent: diastolic murmur, gallop, rubs, systolic murmur - GI/Abdominal GI/Abdominal exam: Present: normal bowel sounds, soft, no peritoneal signs. Absent: distended, tenderness - Skin Skin exam: Present: dry, intact, pallor Internal Medicine: Result - Labs CBC & Chem 7: 02/13/18 03:48 02/12/18 04:03 Labs: Short CBC 02/13/18 Range/Units 03:48 WBC 5.4 (4.3-11.1) K/mcL Hgb 8.1 L (11.5-15.4) g/dL Hct 23.6 L (35.3-44.9) % Plt Count 136 L (140-400) K/mcL Neutrophils # 2.5 (1.6-8.9) K/mcL - ABG Interpretation ABG results: PT/INR, D-dimer PT 11.9 Seconds (9.4-12.1) 02/10/18 22:45 Consult Discharge Plan - Plan Additional Instructions: RISK FACTORS: STOP SMOKING: If you smoke, STOP. Smoking or tobacco use significantly increases your risk of heart disease because nicotine causes the arteries to narrow or constrict. It also causes fats to stick to the artery. Your chances of having a heart attack are greatly increased if you continue to smoke. For more information, call the education line for smoking cessation 9-316-JBJVOIE EAT A LOW FAT/CHOLESTEROL/SODIUM DIET: This diet may help reduce your chances of having a heart attack. LIFTING: Avoid lifting anything more than 10 pounds for 5-7 days Prior to straining, laughing, sneezing and/or coughing, apply manual pressure directly over insertion site. ACTIVITY: You may walk or climb stairs as tolerated You can resume sexual activity as tolerated In general, you are encouraged to engage in a minimum of 30 minutes or more of moderate intensity physical activity, such as brisk walking, daily or at least 3 -4 times weekly BATHING Do not submerge the site into water (bath tub, hot tub, swimming pool) for 1 week. This can be a source for infection into the blood stream. You may shower after 24 hours SITE CARE: After 24 hours, you may remove the dressing and leave the site open to air. Keep the site clean and dry. Clean gently and pat dry. You can expect bruising and tenderness that gradually resolve within a week or two. Return to work as instructed per your physician Resume driving as instructed per physician Keep all scheduled follow up appointments Resume medications as instructed IMPORTANT: If prescribed a Platelet Aggregation Inhibitor such as, Plavix, Brilinta or Effient: Duration of therapy is minimum one year These medications are often used in combination with Aspirin in prevention of future heart attacks Never discontinue unless consult with your Marketing Business Analyst STROKE (CVA) Risk factors for a stroke are: Age, cigarette smoking, diabetes, excessive alcohol consumption, family history, high blood pressure, overweight, physical inactivity, prior stroke, heart attack, diagnosis of carotid artery stenosis or other artery disease. Warning signs: Sudden numbness or weakness of the face, arm or leg; especially on one side of the body, sudden confusion, trouble speaking or understanding, sudden trouble seeing in one or both eyes, sudden trouble walking, dizziness, loss of balance or coordination, sudden severe headache with no cause. Call 911 or go to the Emergency Room. CONGESTIVE HEART FAILURE: If you have been diagnosed with Congestive Heart Failure (CHF) and your symptoms return, make an appointment with your physician Weigh yourself daily. Notify your physician if you have a weight gain of two or more pounds in one day or five or more pounds in one week. If you experience any difficulty breathing, please call 911 BLEEDING: Although the risk of bleeding is minimal, it can happen. If you have any bleeding from the site, apply firm pressure above the puncture site for 10-15 minutes. If the bleeding does not stop, continue manual pressure and call 911 Contact your physician if: You develop a fever greater than 101 degrees Fahrenheit Your site becomes reddened or has any drainage You have an increase in pain or burning at the site or if a large knot forms at the site. If you experience chest pain, shortness of breath, dizziness, or extreme tiredness, stop the activity and rest. Please notify your physicians office if you experience any of these symptoms and they are not relieved by rest please call 911! Referrals: Tessa Stacy, LADONNA [Primary Care Provider] - 02/15/18 1:00 pm Bryan Gavin, [Partnered Physician] - (office will call patient at home with follow up appointment)
[2018-02-13] MEDS ORDERED: Acetaminophen 325 MG TABLET PO PRN (15:43)
[2018-02-13] MEDS: Nitroglycerin 0.4 MG TAB.SUBL SL PRN ×3 (17:02→17:16)
[2018-02-13] MEDS: GI Cocktail 40 ML EACH PO ONE ×2 (18:25→21:12)
[2018-02-13] MEDS ORDERED: *HR* FentaNYL (PF) 100 MCG/2 ML VIAL IVP ONE (18:26)
[2018-02-13] MEDS: Pantoprazole 40 MG VIAL IVP SCH (18:43)
[2018-02-14] MEDS: *HR* Heparin 5,000 UNIT/ML VIAL SQ SCH (05:17)
[2018-02-14] MEDS: Pantoprazole 40 MG VIAL IVP SCH (05:17)
[2018-02-14 05:59] LABS: Basophils # 0.1 K/mcL (0.0-0.2); Basophils % 1.2 %; Eosinophils # 0.2 K/mcL (0.0-0.6); Eosinophils % 4.9 %; Hematocrit 23.4 % (35.3-44.9); Hemoglobin 8.1 g/dL (11.5-15.4); Lymphocytes # 1.7 K/mcL (0.6-4.6); Lymphocytes % 35.5 %; Mean Corpuscular HGB Conc 34.6 g/dL (31.6-35.5); Mean Corpuscular Volume 86.7 fL (83.0-100.0); Mean Platelet Volume 9.5 fL (9.4-12.4); Monocytes # 0.6 K/mcL (0.0-1.3); Monocytes % 12.2 %; Neutrophils # 2.2 K/mcL (1.6-8.9); Platelet Count 169 K/mcL (140-400); Red Cell Distribution Width 12.7 % (11.5-14.5); Segmented Neutrophils % 45.2 %
[2018-02-14] MEDS: Isosorbide MONOnitrate (24 HR) 30 MG TAB.ER.24H PO SCH (08:37)
[2018-02-14] MEDS: Cyanocobalamin (B-12) 1,000 MCG/ML VIAL SQ SCH (08:37)
[2018-02-14] MEDS: Sennosides 8.6 MG TABLET PO SCH (08:37)
[2018-02-14] MEDS: amLODIPine 5 MG TABLET PO SCH (08:37)
[2018-02-14] MEDS: hydrOXYzine pamoate 25 MG CAPSULE PO SCH (08:37)
[2018-02-14] MEDS: Aspirin Enteric Coated 81 MG Tablet PO SCH (08:37)
[2018-02-14] MEDS: Ertapenem 1,000 MG in 0.9 % Sodium Chloride Mini Bag 100 ML IVPB SCH (08:38)
[2018-02-14] MEDS ORDERED: GI Cocktail 40 ML EACH PO ONE (08:55)
[2018-02-14] MEDS ORDERED: Ondansetron 4 MG/2 ML VIAL IVP PRN (08:55)
[2018-02-14 11:15] VITALS: BP 125/65
--- NOTE | 2018-02-14 11:59 | Discharge Summary ---
- NOTES TO OUTPATIENT PROVIDER Notes to Outpatient Provider: Patient initially admitted here with chest pain and elevated troponin. Underwent left heart catheterization after abnormal stress test with placement of drug eluting stent to the pRCA. Patient also has 50% pLCx stenosis. Has been on dual antiplatelet therapy since. She developed an episode of confusion and disorientation post procedure. She was evaluated for acute stroke. MRI and CT of the head did not show any acute stroke. Patient's urine culture is growing multidrug-resistant Klebsiella. Sensitive to ertapenem. She will be discharged today on IV ertapenem to complete total course of 14 days treatment. Patient does have anemia and was found to have low vitamin B12 levels. Would recommend continuing supplementation subcutaneously. Orders not resulted at time of discharge: Pending orders 02/12/18 08:06 Occult Blood,Stool [BF] Stat Date of Encounter: 02/14/18 Time of Encounter: 11:55 - Discharge Diagnosis (1) Elevated troponin Priority: Primary Status: Acute Assessment and Plan: Due to coronary artery disease (2) Anemia Priority: Secondary Status: Acute Qualifiers: Anemia type: B12 deficiency Vitamin B12 deficiency anemia type: unspecified B12 deficiency Qualified Code(s): D51.9 - Vitamin B12 deficiency anemia, unspecified (3) UTI (urinary tract infection) Priority: Secondary Status: Acute Qualifiers: Urinary tract infection type: acute cystitis Hematuria presence: without hematuria Qualified Code(s): N30.00 - Acute cystitis without hematuria (4) Hypertension Priority: Secondary Status: Chronic Qualifiers: Hypertension type: essential hypertension Qualified Code(s): I10 - Essential (primary) hypertension (5) S/P coronary artery stent placement Priority: Secondary Status: Acute (6) Infection with ESBL Klebsiella oxytoca Priority: Secondary Status: Acute (7) CAD (coronary artery disease) Priority: Secondary Status: Acute Qualifiers: Coronary Disease-Associated Artery/Lesion type: [place] artery [place] vs. transplanted heart: [place] heart Associated angina: angina presence unspecified Qualified Code(s): I25.10 - Atherosclerotic heart disease of [place] coronary artery without angina pectoris Hospital course: Ms. Young is a 77 year old female patient with history of essential hypertension, arthritis, gastroesophageal reflux disease fibromyalgia, irritable bowel syndrome with recurrent urinary tract infections was hospitalized here with retrosternal chest pain radiating to the jaw and left arm. Initial troponin was 0.06. As her troponins stayed adynamic, patient then underwent stress test which was abnormal. As such she underwent left heart catheterization and she had drug-eluting stent placed to [facility]. Patient also has 50% pLCx stenosis. She has been on dual antiplatelet therapy since. She developed an episode of confusion and disorientation post procedure. She was evaluated for acute stroke. MRI and CT of the head did not show any acute stroke. Patient's urine culture is growing multidrug-resistant Klebsiella. Sensitive to ertapenem. She will be discharged today on IV ertapenem to complete total course of 14 days treatment. Patient does have anemia and was found to have low vitamin B12 levels. Would recommend continuing supplementation subcutaneously. Discharge discussed with: patient, family, nurse - Time Spent with Patient Total time spent providing and/or coordinating discharge services: Greater than 30 minutes (45 min) - Discharge Medications Prescriptions: amLODIPine [Norvasc] 5 mg PO DAILY #30 tablet Atorvastatin [Lipitor] 20 mg PO HS #30 tablet Clopidogrel [Plavix] 75 mg PO DAILY #30 tablet Cyanocobalamin (B-12) [Vitamin B12] 1,000 mcg SQ DAILY #7 vial Ertapenem [INVanz] 1,000 mg IVPB DAILY #11 vial Isosorbide MONOnitrate (24 HR) [Imdur] 60 mg PO DAILY #30 tab.er.24h Home Medications: HYDROcodone/Acet 7.5/325 mg [[place] 7.5-325 mg] 1 tab PO Q4H PRN 07/09/17 [ History] Buspirone HCl [Buspar] 15 mg PO TID 02/08/18 [History] Dicyclomine [Bentyl] 20 mg PO QID PRN 02/08/18 [History] Metoprolol Succinate [Toprol Xl] 50 mg PO DAILY 02/08/18 [History] Omeprazole [PriLOSEC] 20 mg PO DAILY PRN 02/08/18 [History] hydrOXYzine HCl [Hydroxyzine HCl] 25 mg PO TID 02/08/18 [History] Atorvastatin [Lipitor] 20 mg PO HS #30 tablet 02/14/18 [Rx] Clopidogrel [Plavix] 75 mg PO DAILY #30 tablet 02/14/18 [Rx] Cyanocobalamin (B-12) [Vitamin B12] 1,000 mcg SQ DAILY #7 vial 02/14/18 [Rx] Ertapenem [INVanz] 1,000 mg IVPB DAILY #11 vial 02/14/18 [Rx] Isosorbide MONOnitrate (24 HR) [Imdur] 60 mg PO DAILY #30 tab.er.24h 02/14/18 [ Rx] amLODIPine [Norvasc] 5 mg PO DAILY #30 tablet 02/14/18 [Rx] Allergies/Adverse Reactions: 3 Allergy/AdvReac Type Severity Reaction Status Date / Time arthritis medicine Allergy Hives Uncoded 01/19/17 11:21 Date of admission: 02/12/18 08:05 Primary care physician: Tessa Stacy CNP Consults: 02/12/18 08:07 Consult to Senior Military Analyst [CONS] Routine Reason for SW Consult: Home IV antibiotics Discharging clinician: Sue Kapadia Anticipated date of discharge: 02/14/18 - Constitutional Vitals: Temp Pulse Resp BP Pulse Ox 98.1 F 61 18 125/65 96 02/14/18 11:13 02/14/18 11:13 02/14/18 11:13 02/14/18 11:13 02/14/18 11:13 General appearance: Present: cooperative, A&O X 3, pleasant, no acute distress, answers questions appropriately - Neck Neck exam general surgery: Present: supple, trachea midline. Absent: lymphadenopathy - Respiratory Respiratory exam: Present: CTAB. Absent: accessory muscle use, rales, rhonchi, wheezes - Cardiovascular Cardiovascular exam: Present: RRR, +S1, +S2. Absent: diastolic murmur, gallop, rubs, systolic murmur - GI/Abdominal GI/Abdominal exam: Present: normal bowel sounds, soft, no peritoneal signs. Absent: distended, tenderness - Extremities Exam Extremities exam: Present: warm, radial pulses palpable and symmetrical. Absent : calf tenderness, cyanotic, pedal edema - Neurological Exam Neurological exam: Present: CN II-XII intact, oriented X3, no focal deficits. Absent: facial droop, speech deficit - Skin Skin exam: Present: dry, intact - Patient Status Disposition: Home Health Service Condition: Good Functional capacity at discharge: independent ambulation Overall status at discharge: patient is progressing back to baseline - Discharge Instructions Instructions: Cyanocobalamin (Vitamin B-12) (Injection), Amlodipine (By mouth) , Isosorbide Mononitrate (By mouth), Atorvastatin (By mouth), Clopidogrel (By mouth), Ertapenem (Injection), Chest Pain (DC), Left Heart Catheterization (DC) , Urinary Tract Infection in Women (DC), Chronic Hypertension (DC), Anemia (GEN) Follow Up With: Tessa Stacy CNP [Primary Care Provider] - 02/21/18 10:35 am Bryan Gavin DO [Partnered Physician] - (office will call patient at home with follow up appointment) Forms: ED Satisfaction Letter Additional Instructions: RISK FACTORS: STOP SMOKING: If you smoke, STOP. Smoking or tobacco use significantly increases your risk of heart disease because nicotine causes the arteries to narrow or constrict. It also causes fats to stick to the artery. Your chances of having a heart attack are greatly increased if you continue to smoke. For more information, call the education line for smoking cessation 9-721-ZOWSLSQ EAT A LOW FAT/CHOLESTEROL/SODIUM DIET: This diet may help reduce your chances of having a heart attack. LIFTING: Avoid lifting anything more than 10 pounds for 5-7 days Prior to straining, laughing, sneezing and/or coughing, apply manual pressure directly over insertion site. ACTIVITY: You may walk or climb stairs as tolerated You can resume sexual activity as tolerated In general, you are encouraged to engage in a minimum of 30 minutes or more of moderate intensity physical activity, such as brisk walking, daily or at least 3 -4 times weekly BATHING Do not submerge the site into water (bath tub, hot tub, swimming pool) for 1 week. This can be a source for infection into the blood stream. You may shower after 24 hours SITE CARE: After 24 hours, you may remove the dressing and leave the site open to air. Keep the site clean and dry. Clean gently and pat dry. You can expect bruising and tenderness that gradually resolve within a week or two. Return to work as instructed per your physician Resume driving as instructed per physician Keep all scheduled follow up appointments Resume medications as instructed IMPORTANT: If prescribed a Platelet Aggregation Inhibitor such as, Plavix, Brilinta or Effient: Duration of therapy is minimum one year These medications are often used in combination with Aspirin in prevention of future heart attacks Never discontinue unless consult with your General Road Supervisor STROKE (CVA) Risk factors for a stroke are: Age, cigarette smoking, diabetes, excessive alcohol consumption, family history, high blood pressure, overweight, physical inactivity, prior stroke, heart attack, diagnosis of carotid artery stenosis or other artery disease. Warning signs: Sudden numbness or weakness of the face, arm or leg; especially on one side of the body, sudden confusion, trouble speaking or understanding, sudden trouble seeing in one or both eyes, sudden trouble walking, dizziness, loss of balance or coordination, sudden severe headache with no cause. Call 911 or go to the Emergency Room. CONGESTIVE HEART FAILURE: If you have been diagnosed with Congestive Heart Failure (CHF) and your symptoms return, make an appointment with your physician Weigh yourself daily. Notify your physician if you have a weight gain of two or more pounds in one day or five or more pounds in one week. If you experience any difficulty breathing, please call 911 BLEEDING: Although the risk of bleeding is minimal, it can happen. If you have any bleeding from the site, apply firm pressure above the puncture site for 10-15 minutes. If the bleeding does not stop, continue manual pressure and call 911 Contact your physician if: You develop a fever greater than 101 degrees Fahrenheit Your site becomes reddened or has any drainage You have an increase in pain or burning at the site or if a large knot forms at the site. If you experience chest pain, shortness of breath, dizziness, or extreme tiredness, stop the activity and rest. Please notify your physicians office if you experience any of these symptoms and they are not relieved by rest please call 911! - Diet and Activity Activity: increase activity as tolerated Diet: low fat, low cholesterol, low salt diet
--- NOTE | 2018-02-14 12:09 | Physician Discharge Referral ---
Home Health/Hosp Referral Info Transfer to: Home Health Provider in Charge Post Discharge: PCP - Diagnosis (1) Elevated troponin Priority: Primary Status: Acute (2) Anemia Priority: Secondary Status: Acute (3) UTI (urinary tract infection) Priority: Secondary Status: Acute (4) Hypertension Priority: Secondary Status: Chronic (5) S/P coronary artery stent placement Priority: Secondary Status: Acute (6) Infection with ESBL Klebsiella oxytoca Priority: Secondary Status: Acute (7) CAD (coronary artery disease) Priority: Secondary Status: Acute - Respiratory Orders Smoking Cessation: Smoking cessation has been advised. For more information, call the [place] Tobacco Quit Line at 7-510-XZUG-NOW. - Diet/Nutrition Diet/Nutrition Orders: Cardiac - Activity Activity Orders: Ambulate - Services Needed Following services are medically necessary services: Nursing, Physical Therapy, Occupational Therapy, Home Infusion Home Care Orders: CBC, basic panel in 1 week. Send results to PCP - Transfer Medications Prescriptions: amLODIPine [Norvasc] 5 mg PO DAILY #30 tablet Atorvastatin [Lipitor] 20 mg PO HS #30 tablet Clopidogrel [Plavix] 75 mg PO DAILY #30 tablet Cyanocobalamin (B-12) [Vitamin B12] 1,000 mcg SQ DAILY #7 vial Ertapenem [INVanz] 1,000 mg IVPB DAILY #11 vial Isosorbide MONOnitrate (24 HR) [Imdur] 60 mg PO DAILY #30 tab.er.24h Home Medications: HYDROcodone/Acet 7.5/325 mg [[place] 7.5-325 mg] 1 tab PO Q4H PRN 07/09/17 [ History] Buspirone HCl [Buspar] 15 mg PO TID 02/08/18 [History] Dicyclomine [Bentyl] 20 mg PO QID PRN 02/08/18 [History] Metoprolol Succinate [Toprol Xl] 50 mg PO DAILY 02/08/18 [History] Omeprazole [PriLOSEC] 20 mg PO DAILY PRN 02/08/18 [History] hydrOXYzine HCl [Hydroxyzine HCl] 25 mg PO TID 02/08/18 [History] Atorvastatin [Lipitor] 20 mg PO HS #30 tablet 02/14/18 [Rx] Clopidogrel [Plavix] 75 mg PO DAILY #30 tablet 02/14/18 [Rx] Cyanocobalamin (B-12) [Vitamin B12] 1,000 mcg SQ DAILY #7 vial 02/14/18 [Rx] Ertapenem [INVanz] 1,000 mg IVPB DAILY #11 vial 02/14/18 [Rx] Isosorbide MONOnitrate (24 HR) [Imdur] 60 mg PO DAILY #30 tab.er.24h 02/14/18 [ Rx] amLODIPine [Norvasc] 5 mg PO DAILY #30 tablet 02/14/18 [Rx] Allergies/Adverse Reactions: 3 Allergy/AdvReac Type Severity Reaction Status Date / Time arthritis medicine Allergy Hives Uncoded 01/19/17 11:21 Certification: Further, I certify that my clinical findings support that this patient is homebound (i.e. absences from home require considerable and taxing effort and are for medical reasons or muslim services or infrequently or short duration when for other reasons) because: Homebound Reason: Patient requires assistance of a person or device to safely leave home (Patient requires IV antibiotics) Attestation: My signature below is to certify that this patient is under my care and that I, or nurse practitioner, or a physician's assistant activities director working with me, has a face-to -face encounter with this patient.
--- NOTE | 2018-02-15 16:40 | Electrocardiograph Report ---
[place] [id number] Test Date: 2018-02-13 Pat Name: Roxy Young Department: 110 Room: 2N13 Gender: F Activities Manager: : [id number] Requested By: Sue Kapadia Order Number: [id number] Reading MD: Leora Esparza Measurements Intervals [place] Rate: 79 P: 195 WI: 109 QRS: -16 QRSD: 94 T: -12 QT: 301 QTc: 336 Interpretive Statements SINUS RHYTHM NONSPECIFIC ST & T-WAVE ABNORMALITY Electronically Signed On 02-15-2018 16:38:40 EDT by Leora Esparza
== END 2018-02-14 16:00 | disposition home health service (06) | DRG 246 ==
LOC: EMEROO 08:50 → 3BNU 08:50 → SUATTDRO 10:00 → 3BNU 10:31 → 2NNU 02-10 18:49
PROVIDERS: ADMIT Internal Medicine; ATTEND Internal Medicine

== ENCOUNTER 2018-02-21 13:44 | Observation (INO) ==
[2018-02-21] MEDS ORDERED: Aspirin 81 MG TAB.CHEW PO ONE (13:57)
--- NOTE | 2018-02-21 14:02 | Emergency Department Note ---
Disposition Clinical Impression: Chest pain Qualifiers: Chest pain type: unspecified Qualified Code(s): R07.9 - Chest pain, unspecified Disposition: Admitted As Inpatient Condition: Good Referrals: Tessa Stacy CNP [Primary Care Provider] - Forms: ED Satisfaction Letter Time of Disposition: 16:26 Chest Pain HPI - General Chief Complaint: ED Chest Pain Stated Complaint: CP Time Seen by Provider: 02/21/18 13:50 Source: patient Mode of arrival: ambulatory Limitations: no limitations Vital Signs Reviewed: Yes Nursing Notes Reviewed: Yes - History of Present Illness HPI Narrative: 77-year-old female who is status post cardiac catheter about 2 weeks ago comes in complaining of burning chest pain. 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 Duration: intermittent Onset: during rest Pain Location: substernal, left chest Severity: moderate Severity scale (1-10): 5 Quality: other (Burning) Pain Radiation: LUE, jaw/teeth Improves with: nothing Worsens with: nothing Context: recent illness Associated symptoms: Reports: nausea Treatments prior to arrival chest pain: none - Related Data Home Medications Medication Instructions Recorded Confirmed HYDROcodone/Acet 7.5/325 mg [[place] 1 tab PO Q4H PRN 07/09/17 02/21/18 7.5-325 mg] Buspirone HCl [Buspar] 15 mg PO TID 02/08/18 02/21/18 Dicyclomine [Bentyl] 20 mg PO QID PRN 02/08/18 02/21/18 Metoprolol Succinate [Toprol Xl] 50 mg PO DAILY 02/08/18 02/21/18 Omeprazole [PriLOSEC] 20 mg PO DAILY PRN 02/08/18 02/21/18 hydrOXYzine HCl [Hydroxyzine HCl] 25 mg PO TID 02/08/18 02/21/18 Previous Rx's Medication Instructions Recorded Atorvastatin [Lipitor] 20 mg PO HS #30 tablet 02/14/18 Clopidogrel [Plavix] 75 mg PO DAILY #30 tablet 02/14/18 Cyanocobalamin (B-12) [Vitamin B12] 1,000 mcg SQ DAILY #7 vial 02/14/18 Ertapenem [INVanz] 1,000 mg IVPB DAILY #11 vial 02/14/18 Isosorbide MONOnitrate (24 HR) 60 mg PO DAILY #30 tab.er.24h 02/14/18 [Imdur] amLODIPine [Norvasc] 5 mg PO DAILY #30 tablet 02/14/18 Allergies Allergy/AdvReac Type Severity Reaction Status Date / Time arthritis medicine Allergy Hives Uncoded 01/19/17 11:21 All systems ED: reviewed and negative except as stated. Constitutional: Denies: fever, chills, weakness, weight change Eyes: Denies: eye pain, eye discharge, vision change ENT ED: Denies: ear pain, throat pain, dental pain, hearing loss, epistaxis, congestion, dysphagia Cardiovascular: Reports: chest pain. Denies: palpitations, dyspnea on exertion , edema, syncope Respiratory: Denies: cough, dyspnea, wheezes, hemoptysis, stridor Gastrointestinal: Denies: abdominal pain, nausea, vomiting, diarrhea, constipation, hematemesis, melena, hematochezia Genitourinary: Denies: dysuria, frequency, hematuria, discharge Musculoskeletal: Denies: back pain, neck pain, arthralgia, myalgia Integumentary: Denies: rash, abrasion, lesions Neurological: Denies: headache, weakness, numbness, paresthesias, confusion, abnormal gait, vertigo Psychiatric: Denies: anxiety, depression, suicidal thoughts, homicidal thoughts , auditory hallucinations, visual hallucinations Endocrine: Denies: fatigue Hematological/Lymphatic: Denies: easy bleeding, easy bruising Allergic/Immunologic: Denies: facial swelling, urticaria Chest Pain PMH - Past Medical History Medical history: Reports: arthritis, cancer, GERD, hypertension, other Surgical history: Reports: appendectomy, breast surgery, cancer surgery Psychiatric history: Reports: anxiety, depression FRIT BURNER history: Reports: no FRIT BURNER history - Social History Smoking Status: Never smoker Alcohol use: Reports: none Drug use: Reports: none Course - Reevaluation(s) Reevaluation #1: 77-year-old who underwent right coronary artery stents about a week and half ago. Has had intermittent chest pain since. Patient will be admitted for evaluation and treatment. Time: 17:00 - Consultations Consultation #1: Discussed with Dr. Rincon, we will see in consult. Time: 17:00 Consultation #2: Discussed with Dr. Paz, admit. Time: 17:00 Vital Signs Temperature 98.4 F 02/21/18 13:45 Pulse Rate 66 02/21/18 13:45 Respiratory Rate 20 02/21/18 13:45 Blood Pressure 130/76 02/21/18 13:45 O2 Sat by Pulse Oximetry 97 02/21/18 13:45 Temperature 98.4 F 02/21/18 14:05 Pulse Rate 54 02/21/18 15:58 Respiratory Rate 18 02/21/18 15:58 Blood Pressure 134/62 02/21/18 15:58 O2 Sat by Pulse Oximetry 98 02/21/18 15:58 Oxygen Delivery Oxygen Delivery Room Air Chest Pain - Lab Data Result diagrams: 02/21/18 15:22 02/21/18 15:22 Lab Results 02/21/18 02/21/18 02/21/18 Range/Units 15:22 15:22 15:22 WBC 5.3 (4.3-11.1) K/mcL RBC 2.96 L (3.82-4.97) M/mcL Hgb 9.0 L (11.5-15.4) g/dL Hct 26.9 L (35.3-44.9) % MCV 90.9 (83.0-100.0) fL MCH 30.4 (28.0-33.3) pg MCHC 33.5 (31.6-35.5) g/dL RDW 13.4 (11.5-14.5) % Plt Count 222 (140-400) K/mcL MPV 8.8 L (9.4-12.4) fL Immature Gran % 0.6 (0-4) % Seg Neutrophils % 51.3 % Lymphocytes % 34.5 % Monocytes % 10.2 % Eosinophils % 2.6 % Basophils % 0.8 % Neutrophils # 2.7 (1.6-8.9) K/mcL Lymphocytes # 1.8 (0.6-4.6) K/mcL Monocytes # 0.5 (0.0-1.3) K/mcL Eosinophils # 0.1 (0.0-0.6) K/mcL Basophils # 0.0 (0.0-0.2) K/mcL PT 11.1 (9.4-12.1) Seconds INR 1.0 APTT 38.6 H (26.0-36.0) Seconds Sodium 139 (136-145) mEq/L Potassium 3.6 (3.5-5.1) mEq/L Chloride 104 (98-107) mEq/L Carbon Dioxide 29 (23-29) mEq/L BUN 7 L (8-23) mg/dL Creatinine 0.55 L (0.60-1.20) mg/dL Est GFR ( Amer) > 60 (> 60) Est GFR (Non-Af Amer) > 60 (> 60) BUN/Creatinine Ratio 13 (6-26) Glucose 92 (70-105) mg/dL Calculated Osmolality 286 (280-300) Calcium 8.5 L (8.6-10.3) mg/dL Troponin I < 0.03 (< 0.04) ng/mL - EKG Data EKG attestation: Yes I reviewed and interpreted this EKG. EKG shows normal: sinus rhythm Rate: normal Rhythm: NSR [place]/QRS: normal Interpretation: no acute changes Heart Score - Score History: Moderately Suspicious EKG: Normal Age: Greater than 65 Risk Factors: Equal/Greater than 3 risk factor or history of atherosclerotic disease Troponin: Less than normal limit HEART Score Total: 5
[2018-02-21 15:39] LABS: Basophils % 0.8 %; Eosinophils # 0.1 K/mcL (0.0-0.6); Eosinophils % 2.6 %; Hematocrit 26.9 % (35.3-44.9); Immature Granulocytes % 0.6 % (0-4); Lymphocytes # 1.8 K/mcL (0.6-4.6); Lymphocytes % 34.5 %; Mean Corpuscular HGB Conc 33.5 g/dL (31.6-35.5); Mean Corpuscular Hemoglobin 30.4 pg (28.0-33.3); Mean Corpuscular Volume 90.9 fL (83.0-100.0); Mean Platelet Volume 8.8 fL (9.4-12.4); Monocytes # 0.5 K/mcL (0.0-1.3); Monocytes % 10.2 %; Neutrophils # 2.7 K/mcL (1.6-8.9); Platelet Count 222 K/mcL (140-400); Red Blood Count 2.96 M/mcL (3.82-4.97); Red Cell Distribution Width 13.4 % (11.5-14.5); Segmented Neutrophils % 51.3 %
[2018-02-21 15:46] LABS: Prothrombin Time 11.1 Seconds (9.4-12.1)
[2018-02-21 15:48] LABS: Activated Partial Thrombo Time 38.6 Seconds (26.0-36.0)
[2018-02-21 15:58] LABS: BUN/Creatinine Ratio 13 (6-26); Blood Urea Nitrogen 7 mg/dL (8-23); Calcium 8.5 mg/dL (8.6-10.3); Carbon Dioxide 29 mEq/L (23-29); Chloride 104 mEq/L (98-107); Glucose 92 mg/dL (70-105); Osmolality,Calculated 286 (280-300); Potassium 3.6 mEq/L (3.5-5.1); Sodium 139 mEq/L (136-145); eGFR For African Americans > 60 (> 60); eGFR For Non-African Americans > 60 (> 60)
[2018-02-21 15:59] LABS: Troponin I < 0.03 ng/mL (< 0.04)
[2018-02-21] MEDS ORDERED: Naloxone 0.4 MG/ML INJ IVP PRN (18:37)
[2018-02-21] MEDS ORDERED: *HR* HYDROcodone/Acet 7.5/325 mg TABLET PO PRN (18:39)
--- NOTE | 2018-02-21 18:49 | Internal Med History&Physical ---
Date of Encounter: 02/21/18 Time of Encounter: 18:44 Internal Medicine - H&P: HPI Chief complaint: chest pain Admitted From: Emergency Dept Plans for Post Hospital Care: Home History of present illness: Ms. Young is a 77 year old female who is a background medical history of irritable bowel syndrome, fibromyalgia, multiple episodes of urinary tract infection for the past 25 years. Patient was recently hospitalized for chest pain and at that time patient underwent cardiac catheterization. Noted that patient underwent RCA stenting. Patient came back today with a worsening chest pain. The pain is mainly in the precordial region. Its nonradiating, localized, chest pain is limited to the precordial region. The pain get worse with the movement and exercise. The pain that relieved by nitroglycerin and rest. Patient was really concerned regarding this pain as he recently she has this catheterization done. Patient denies nausea, vomiting, abdominal pain, dizziness and diarrhea. Workup in the emergency room: Patient was evaluated in the emergency room. Baseline labs were drawn. Troponin was negative. Reason for admission: Chest pain to rule out ACS. Family history: Noncontributory Past Med Surg Social Fam HX - Past Medical History Medical history: arthritis, cancer, GERD, hypertension, other Psychiatric history: anxiety, depression - Past Surgical History Surgical History: appendectomy, breast surgery, cancer surgery - Social History Smoking Status: Never smoker Smokeless Tobacco Status: No Alcohol use: none Drug use: none - Family History Daughter Living Status: Still Living Hx Family Cardiac Disorders: Yes Hx Family Endocrine Disorder: Yes Internal Medicine - H&P: Meds HYDROcodone/Acet 7.5/325 mg [[place] 7.5-325 mg] 1 tab PO Q4H PRN 07/09/17 [ History] Buspirone HCl [Buspar] 15 mg PO TID 02/08/18 [History] Dicyclomine [Bentyl] 20 mg PO QID PRN 02/08/18 [History] Metoprolol Succinate [Toprol Xl] 50 mg PO DAILY 02/08/18 [History] Omeprazole [PriLOSEC] 20 mg PO DAILY PRN 02/08/18 [History] hydrOXYzine HCl [Hydroxyzine HCl] 25 mg PO TID 02/08/18 [History] Atorvastatin [Lipitor] 20 mg PO HS #30 tablet 02/14/18 [Rx] Clopidogrel [Plavix] 75 mg PO DAILY #30 tablet 02/14/18 [Rx] Cyanocobalamin (B-12) [Vitamin B12] 1,000 mcg SQ DAILY #7 vial 02/14/18 [Rx] Ertapenem [INVanz] 1,000 mg IVPB DAILY #11 vial 02/14/18 [Rx] Isosorbide MONOnitrate (24 HR) [Imdur] 60 mg PO DAILY #30 tab.er.24h 02/14/18 [ Rx] amLODIPine [Norvasc] 5 mg PO DAILY #30 tablet 02/14/18 [Rx] 3 Allergy/AdvReac Type Severity Reaction Status Date / Time arthritis medicine Allergy Hives Uncoded 01/19/17 11:21 All Systems PM: A 10-system review of systems was performed and is negative for pertinent findings except as documented above in the HPI. - Constitutional Constitutional: no chills, no fever(s), no night sweats - EENT Eyes: no change in vision, no discharge, no pain, no photophobia Ears: no ear discharge, no ear pain, no tinnitus Nose, mouth and throat: no dysphagia, no nasal discharge, no neck pain, no sore throat - Cardiovascular Cardiovascular ROS IM: no chest pain, no diaphoresis, no dyspnea, no lightheadedness, no palpitations, no syncope - Respiratory Respiratory: no cough, no dyspnea, no wheezing, no excessive phlegm production - Gastrointestinal Gastrointestinal: no abdominal pain, no diarrhea, no hematemesis, no hematochezia, no melena, no nausea, no vomiting - Genitourinary Genitourinary: no change in urinary stream, no dysuria, no flank pain, no hematuria - Musculoskeletal Musculoskeletal ROS IM: no numbness, no tingling - Integumentary Integumentary IM: no rash, no unusual bruising - Neurological Neurological ROS: no confusion, no convulsions, no focal weakness, no numbness, no tingling, no tremor(s) - Hematologic/Lymphatic Hematologic/Lymphatic: no easy bruising - Constitutional Vitals: Temp Pulse Resp BP Pulse Ox 98.4 F 54 18 157/73 98 02/21/18 14:05 02/21/18 15:58 02/21/18 17:30 02/21/18 17:30 05/14/18 15:58 General appearance: Present: A&O X 3, pleasant, no acute distress, answers questions appropriately - Head Head exam: Present: atraumatic, normocephalic - Eye Eye exam: Present: PERRL, conjuntiva pink, sclera anicteric Pupils: Present: PERRL - Neck Neck exam general surgery: Present: supple, trachea midline. Absent: lymphadenopathy - Respiratory Respiratory exam: Present: CTAB. Absent: accessory muscle use, rales, rhonchi, wheezes - Cardiovascular Cardiovascular exam: Present: RRR, +S1, +S2. Absent: diastolic murmur, gallop, rubs, systolic murmur - GI/Abdominal GI/Abdominal exam: Present: normal bowel sounds, soft, no peritoneal signs. Absent: distended, tenderness - Extremities Exam Extremities exam: Present: warm, radial pulses palpable and symmetrical. Absent : calf tenderness, cyanotic, pedal edema - Neurological Exam Neurological exam: Present: CN II-XII intact, oriented X3, no focal deficits. Absent: pronater drift, facial droop, speech deficit - Skin Skin exam: Present: dry, intact Internal Med - H&P Results - Labs CBC & Chem 7: 02/21/18 15:22 02/21/18 15:22 - Assessment and plan (1) Chest pain Current Visit: Yes Status: Acute Assessment and plan: 77/female Admitted with chest pain. Recently patient underwent a stent in the right side coronary artery. Plan: Admit as observation. Cycle troponin. EKG. Aspirin/beta blockers/Plavix/Imdur/statin. I have examined this patient in emergency department room #31. Patient's family at bedside. Plan of care explained to the patient and family members. He verbalized understanding. Qualifiers: Chest pain type: unspecified Qualified Code(s): R07.9 - Chest pain, unspecified (2) Hypertension Current Visit: No Status: Chronic Assessment and plan: Patient's blood pressure is very well controlled. We will resume home medication Qualifiers: Hypertension type: essential hypertension Qualified Code(s): I10 - Essential (primary) hypertension (3) CAD (coronary artery disease) Current Visit: No Status: Acute Assessment and plan: Patient does have coronary artery disease. Troponin negative/EKG no dynamic changes Qualifiers: Coronary Disease-Associated Artery/Lesion type: [place] artery [place] vs. transplanted heart: [place] heart Associated angina: angina presence unspecified Qualified Code(s): I25.10 - Atherosclerotic heart disease of [place] coronary artery without angina pectoris (4) S/P coronary artery stent placement Current Visit: No Status: Acute Assessment and plan: Patient is presently has a coronary artery stent. Patient is on Plavix. We will continue Plavix/aspirin/beta phil/statin/isosorbide mononitrate. (5) DVT prophylaxis Current Visit: No Status: Acute Assessment and plan: heparin Medical decision making: This patient has a moderate to severe risk of worsening in spite of being on appropriate medication due to the underlying complex comorbid conditions - Time Spent With Patient Total time spent is greater than 50% in coordination of care (as documented) at patient's floor/unit and/or counseling patient:
[2018-02-21] MEDS: *HR* Heparin 5,000 UNIT/ML VIAL SQ SCH (21:25)
[2018-02-21] MEDS: hydrOXYzine pamoate 25 MG CAPSULE PO SCH (21:25)
[2018-02-21] MEDS: *HR* HYDROcodone/Acet 5/325 mg TABLET PO PRN (21:29)
[2018-02-22 05:23] LABS: Basophils # 0.1 K/mcL (0.0-0.2); Basophils % 1.4 %; Eosinophils # 0.2 K/mcL (0.0-0.6); Eosinophils % 5.7 %; Hematocrit 24.6 % (35.3-44.9); Hemoglobin 8.5 g/dL (11.5-15.4); Immature Granulocytes % 0.5 % (0-4); Lymphocytes # 1.6 K/mcL (0.6-4.6); Lymphocytes % 38.8 %; Mean Corpuscular HGB Conc 34.6 g/dL (31.6-35.5); Mean Corpuscular Hemoglobin 31.1 pg (28.0-33.3); Mean Corpuscular Volume 90.1 fL (83.0-100.0); Mean Platelet Volume 9.1 fL (9.4-12.4); Monocytes # 0.5 K/mcL (0.0-1.3); Monocytes % 11.4 %; Neutrophils # 1.8 K/mcL (1.6-8.9); Nucleated Red Blood Cells 1.9 /100 WBC (0); Platelet Count 196 K/mcL (140-400); Red Blood Count 2.73 M/mcL (3.82-4.97); Red Cell Distribution Width 13.3 % (11.5-14.5); Segmented Neutrophils % 42.2 %
[2018-02-22 05:31] LABS: INR 1.1; Prothrombin Time 11.4 Seconds (9.4-12.1)
[2018-02-22 05:33] LABS: Activated Partial Thrombo Time 39.4 Seconds (26.0-36.0)
[2018-02-22 05:44] LABS: Alanine Aminotransferase 9 Units/L (7-52); Albumin 3.1 g/dL (3.5-5.7); Albumin/Globulin Ratio 1.2 (1.1-2.2); Alkaline Phosphatase 47 Units/L (34-104); Aspartate Amino Transferase 15 Units/L (13-39); BUN/Creatinine Ratio 15 (6-26); Bilirubin,Total 0.7 mg/dL (0.3-1.0); Blood Urea Nitrogen 8 mg/dL (8-23); Calcium 8.2 mg/dL (8.6-10.3); Carbon Dioxide 28 mEq/L (23-29); Chloride 106 mEq/L (98-107); Chol/HDL Ratio 2.2 (0-4.9); Cholesterol 96 mg/dL (< 200); Globulin 2.6 g/dL (2.4-3.5); Glucose 88 mg/dL (70-105); HDL Cholesterol 43 mg/dL (40-59); LDL Cholesterol,Calculated 44 mg/dL (0-99); Osmolality,Calculated 286 (280-300); Phosphorous 3.8 mg/dL (2.7-4.5); Potassium 3.5 mEq/L (3.5-5.1); Sodium 139 mEq/L (136-145); Total Protein 5.7 g/dL (6.4-8.9); Triglycerides 46 mg/dL (< 150); eGFR For African Americans > 60 (> 60); eGFR For Non-African Americans > 60 (> 60)
[2018-02-22] MEDS: *HR* Heparin 5,000 UNIT/ML VIAL SQ SCH ×3 (05:59→21:38)
[2018-02-22] MEDS: hydrOXYzine pamoate 25 MG CAPSULE PO SCH ×3 (08:40→21:32)
[2018-02-22] MEDS: Cyanocobalamin (B-12) 1,000 MCG/ML VIAL SQ SCH (08:40)
[2018-02-22] MEDS: Ertapenem 1,000 MG in 0.9 % Sodium Chloride Mini Bag 100 ML IVPB SCH (08:40)
[2018-02-22] MEDS: Isosorbide MONOnitrate (24 HR) 60 MG TAB.ER.24H PO SCH (08:40)
[2018-02-22] MEDS ORDERED: Metoprolol XL (24 HR) Succ 50 MG TAB.ER.24H PO SCH (09:00)
--- NOTE | 2018-02-22 10:20 | Cardiology Consult Note ---
<MasoudManjula J - Last Filed: 02/22/18 10:39> Date of Encounter: 02/22/18 Time of Encounter: 09:30 Assessment and Plan (1) Chest pain Current Visit: Yes Status: Acute Per cardiology: -Admitted with chest pain, occured at rest. States similar to previous. -Somewhat reproduceable with palpation. -Troponins negative x3. -No acute ischemic ECG changes. -Recent PCI. -PLan for stress test in am. Will hold imdur for stress. -IF stress negative, can consider increasing imdur. Qualifiers: Chest pain type: unspecified Qualified Code(s): R07.9 - Chest pain, unspecified (2) CAD (coronary artery disease) Current Visit: No Status: Chronic Per cardiology: -REcent abnormal stress test which led to LHC. -Known CAD s/p LHC 02/10/18 with 99% proximal RCA with CRYSTAL placed, has remaining 50% proximal circ. -On asa, plavix, statin, BB, imdur. Denies missed doses of asa or plavix. -TTE 02/2018 with LVEF 60%, mild diastolic dysfunction, mild-moderate MR, mild AR , mild TR, mild SC, no segmental wall motion abnormalities. -PLan for Stress in am. Qualifiers: Coronary Disease-Associated Artery/Lesion type: [place] artery [place] vs. transplanted heart: [place] heart Associated angina: angina presence unspecified Qualified Code(s): I25.10 - Atherosclerotic heart disease of [place] coronary artery without angina pectoris (3) Anemia Current Visit: No Status: Chronic Per cardiology: -Hemoglobin 8.5, appears about baseline. -Management per primary service. Qualifiers: Anemia type: B12 deficiency Vitamin B12 deficiency anemia type: unspecified B12 deficiency Qualified Code(s): D51.9 - Vitamin B12 deficiency anemia, unspecified Discussion w patient/family: The assessment and plan as outlined above was discussed with the patient and/or family members who expressed understanding and agreement. All questions were answered. Thank you for involving us in the care of your patient. Please call with any questions. Discussed and reviewed with . History of Present Illness Consult date: 02/21/18 Requesting physician: Duran Montoya Consult reason: chest pain Chief complaint: chest pain History of present illness: Ms. Young is a 77 year old female with a relevant past medical history of CAD s/p recent PCI 02/09/18, GERD, diverticulosis, recurrent UTI, anxiety, IBS, fibromyalgia, HTN. Patient presented to [facility] with complaints of chest burning. Pateint states pain started while at rest. Patient states pain radiated into neck. Patient denies aggravating or alleviating factors. States pain spontaneously resolved. Patient reports this is her second episode of pain since PCI. Pateint reports symptoms similar to previous angina. Patient reports increased weakness. Denies shortness of breath. Past Med Surg Social Fam HX - Past Medical History Attestation: Yes The following information was validated with the patient. Source: patient, old records reviewed Medical history: arthritis, cancer, coronary artery disease, GERD, hypertension , other Psychiatric history: anxiety, depression - Past Surgical History Surgical History: appendectomy, breast surgery, cancer surgery - Social History Smoking Status: Never smoker Smokeless Tobacco Status: No Alcohol use: none Drug use: none - Family History Daughter Living Status: Still Living Hx Family Cardiac Disorders: Yes Hx Family Endocrine Disorder: Yes Medications and Allergies HYDROcodone/Acet 7.5/325 mg [[place] 7.5-325 mg] 1 tab PO Q4H PRN 07/09/17 [ History] Buspirone HCl [Buspar] 15 mg PO TID 02/08/18 [History] Dicyclomine [Bentyl] 20 mg PO QID PRN 02/08/18 [History] Metoprolol Succinate [Toprol Xl] 50 mg PO DAILY 02/08/18 [History] Omeprazole [PriLOSEC] 20 mg PO DAILY PRN 02/08/18 [History] hydrOXYzine HCl [Hydroxyzine HCl] 25 mg PO TID 02/08/18 [History] Atorvastatin [Lipitor] 20 mg PO HS #30 tablet 02/14/18 [Rx] Clopidogrel [Plavix] 75 mg PO DAILY #30 tablet 02/14/18 [Rx] Cyanocobalamin (B-12) [Vitamin B12] 1,000 mcg SQ DAILY #7 vial 02/14/18 [Rx] Ertapenem [INVanz] 1,000 mg IVPB DAILY #11 vial 02/14/18 [Rx] Isosorbide MONOnitrate (24 HR) [Imdur] 60 mg PO DAILY #30 tab.er.24h 02/14/18 [ Rx] amLODIPine [Norvasc] 5 mg PO DAILY #30 tablet 02/14/18 [Rx] 3 Allergy/AdvReac Type Severity Reaction Status Date / Time arthritis medicine Allergy Hives Uncoded 01/19/17 11:21 All Systems Review: The remainder of the systems were reviewed and are negative - Constitutional Constitutional: weakness - Cardiovascular Cardiovascular: as per HPI, chest pain at rest Physical Examination Vital Signs, Last 4 Hours Temp Pulse Resp BP Pulse Ox 02/22/18 06:36 97.9 F 57 16 100/64 97 General: Conversant, No Apparent Distress HEENT: Atraumatic, Normocephaly, Mucus Membranes Moist Neck: No JVD, Normal carotid pulses Cardiac: Reg Rate and Rhythm, Normal S1 and S2, No Murmur Lungs: Normal Breath Sounds, No Wheeze, Rales, Rhonchi Neuro: Alert and responsive, No focal deficits noted Abdomen: Soft, Non-Tender Skin: No rashes noted on visualized skin Musculoskeletal: Other (Chest pain reproduceable with palpation. ) Extremities: No Clubbing, No Cyanosis, No Edema, Normal Pulses Results 02/22/18 04:44 02/22/18 04:44 Lab Results Impressions Chest X-Ray 02/21/18 13:57 IMPRESSION: Stable chest from 02/08/2018 with no new acute cardiopulmonary findings. D/ / Pratima Hathaway MD / Pratima Hathaway MD Interpreting Provider: Pratima Hathaway MD Active Medications Hydrocodone Bitart/Acetaminophen ([place] 5-325 Mg) 1 tab PO Q6HR PRN PRN Reason: Moderate Pain Stop: 08/23/18 18:38 Last Admin: 02/21/18 21:29 Dose: 1 tab Hydrocodone Bitart/Acetaminophen ([place] 7.5-325 Mg) 1 tab PO Q4H PRN PRN Reason: Pain Stop: 08/23/18 18:40 Amlodipine Besylate (Norvasc) 5 mg PO DAILY ARIELLE PRN Reason: Protocol Stop: 08/24/18 09:01 Aspirin (Aspirin Ec) 81 mg PO DAILY ARIELLE Stop: 08/24/18 09:01 Atorvastatin Calcium (Lipitor) 20 mg PO HS [facility] Stop: 08/23/18 21:01 Last Admin: 02/21/18 21:25 Dose: 20 mg Buspirone HCl (Buspar) 15 mg PO TID ARIELLE Stop: 08/23/18 21:01 Last Admin: 02/22/18 08:40 Dose: 15 mg Clopidogrel Bisulfate (Plavix) 75 mg PO DAILY ARIELLE Stop: 08/24/18 09:01 Last Admin: 02/22/18 08:40 Dose: 75 mg Cyanocobalamin (Vitamin B12) 1,000 mcg SQ DAILY ARIELLE Stop: 08/24/18 09:01 Last Admin: 02/22/18 08:40 Dose: 1,000 mcg Dicyclomine HCl (Bentyl) 20 mg PO QID PRN PRN Reason: STOMACH PAIN AND NAUSEA Stop: 08/23/18 18:40 Heparin Sodium (Porcine) (Heparin) 5,000 unit SQ Q8HCO [facility] Stop: 08/23/18 22:01 Last Admin: 02/22/18 05:59 Dose: 5,000 unit Hydroxyzine Pamoate (Hydroxyzine Pamoate) 25 mg PO TID [facility] Stop: 08/23/18 21:01 Last Admin: 02/22/18 08:40 Dose: 25 mg Ertapenem 1,000 mg/ Sodium (Chloride) 100 mls @ 100 mls/hr IVPB DAILY [facility] Stop: 08/24/18 09:01 Last Admin: 02/22/18 08:40 Dose: 100 mls/hr Isosorbide Mononitrate (Imdur) 60 mg PO DAILY [facility] Stop: 08/24/18 09:01 Last Admin: 02/22/18 08:40 Dose: 60 mg Metoprolol Succinate (Toprol Xl) 50 mg PO DAILY [facility] Stop: 08/24/18 09:01 Naloxone HCl (Narcan) 0.4 mg IVP Q2MIN PRN PRN Reason: SEE COMMENTS Stop: 08/23/18 18:38 Omeprazole (Prilosec) 20 mg PO DAILY PRN; Protocol PRN Reason: ACID REFLUX Stop: 08/23/18 18:40 Laboratory Tests 02/21/18 02/21/18 02/21/18 15:22 15:22 21:30 Hgb 9.0 L Creatinine Troponin I < 0.03 < 0.03 02/22/18 02/22/18 02/22/18 04:44 04:44 04:44 Hgb 8.5 L Creatinine 0.53 L Troponin I < 0.03 - Imaging and Cardiology Chest Xray: report reviewed Stress Test: report reviewed Echo: report reviewed Cardiac cath: report reviewed - EKG Interpretation EKG results cardiology: personally reviewed (ECG with SR, HR 65.), other ( Telemetry reviewed with average HR previous 12 hours noted to be 57, SB. PVCs and PACs noted.) Consult Discharge Plan - Plan Referrals: Tessa Stacy, AUTO LOCATOR [Primary Care Provider] - <Lisa Rincon - Last Filed: 02/22/18 13:11> Date of Encounter: 02/22/18 - Attending Attestation I have personally performed a face to face evaluation on this patient. I have reviewed and agree with the care plan. History and Exam by me shows: 77 YOF s/p PCI to the RCA with excellent angiographic results. Non Obstructive CAD in the CIRC with preserved EF presents with atypical chest pain. Negative CE 's unremarkable EKG. Patient okay to DC home and follow with Dr. Gavin. Assessment and Plan Discussion w patient/family: The assessment and plan as outlined above was discussed with the patient and/or family members who expressed understanding and agreement. All questions were answered. Thank you for involving us in the care of your patient. Please call with any questions. History of Present Illness History of present illness: Ms. Young is a 77 year old female All Systems Review: The remainder of the systems were reviewed and are negative Physical Examination Vital Signs, Last 4 Hours Temp Pulse Resp BP Pulse Ox 02/22/18 10:52 98.8 F 61 14 145/72 96 Results 02/22/18 04:44 02/22/18 04:44 Lab Results 02/21/18 02/22/18 02/22/18 21:30 04:44 04:44 WBC 4.2 L Hgb 8.5 L Hct 24.6 L Plt Count 196 INR APTT Sodium Potassium Chloride Carbon Dioxide BUN Creatinine Glucose Calcium Magnesium Total Bilirubin AST ALT Alkaline Phosphatase Troponin I < 0.03 < 0.03 B-Natriuretic Peptide 02/22/18 02/22/18 02/22/18 04:44 04:44 04:44 WBC Hgb Hct Plt Count INR 1.1 APTT 39.4 H Sodium 139 Potassium 3.5 Chloride 106 Carbon Dioxide 28 BUN 8 Creatinine 0.53 L Glucose 88 Calcium 8.2 L Magnesium 2.0 Total Bilirubin 0.7 AST 15 ALT 9 Alkaline Phosphatase 47 Troponin I B-Natriuretic Peptide 271 H 02/22/18 09:56 WBC Hgb Hct Plt Count INR APTT Sodium Potassium Chloride Carbon Dioxide BUN Creatinine Glucose Calcium Magnesium Total Bilirubin AST ALT Alkaline Phosphatase Troponin I < 0.03 B-Natriuretic Peptide
[2018-02-22] MEDS: Aspirin Enteric Coated 81 MG Tablet PO SCH (10:38)
[2018-02-22] MEDS: amLODIPine 5 MG TABLET PO SCH (12:37)
[2018-02-22] MEDS: *HR* HYDROcodone/Acet 5/325 mg TABLET PO PRN (12:43)
--- NOTE | 2018-02-22 13:50 | Internal Med Progress Note ---
Date of Encounter: 02/22/18 Time of Encounter: 13:50 - Assessment and plan (1) Chest pain Current Visit: Yes Status: Acute Assessment and plan: Admitted with chest pain which occurred at rest. Troponins negative 3, no acute ischemic EKG changes. Patient states that this feels more like anxiety than chest pain. However, she has had recent PCI. Cardiology following, recommend stress test in the morning. Hold Imdur and beta phil prior distress, nothing by mouth after midnight. Continue Aspirin/beta blockers/ Plavix/Imdur/statin. Continuous telemetry and SPO2 monitoring Qualifiers: Chest pain type: unspecified Qualified Code(s): R07.9 - Chest pain, unspecified (2) S/P coronary artery stent placement Current Visit: Yes Status: Acute Assessment and plan: See further assessment and planning above (3) Hypertension Current Visit: Yes Status: Chronic Assessment and plan: History of hypertension, BP stable, We will resume home anti-HTN medications Qualifiers: Hypertension type: essential hypertension Qualified Code(s): I10 - Essential (primary) hypertension (4) CAD (coronary artery disease) Current Visit: Yes Status: Chronic Assessment and plan: History of CAD, recent stent placement on 02/25 Presented yesterday with chest pain Continuous telemetry Resume home cardiac medications See further assessment and planning above Qualifiers: Coronary Disease-Associated Artery/Lesion type: [place] artery [place] vs. transplanted heart: [place] heart Associated angina: angina presence unspecified Qualified Code(s): I25.10 - Atherosclerotic heart disease of [place] coronary artery without angina pectoris (5) DVT prophylaxis Current Visit: Yes Status: Acute Assessment and plan: Continue subcutaneous heparin - Time Spent With Patient Total time spent is greater than 50% in coordination of care (as documented) at patient's floor/unit and/or counseling patient: 25 - 35 minutes - Subjective Interval history: Patient presented with chest pain at rest. She has had a recent LHC requiring a CRYSTAL on 02/11/18. Patient seen and examined at bedside today, denies any chest pain at this time. Reports that she feels like her symptoms are more anxiety related and that does not feel like her prior chest pain which led to LHC and stent placement. - Constitutional Vitals: Temp Pulse Resp BP Pulse Ox 98.8 F 61 14 145/72 96 02/22/18 10:52 02/22/18 10:52 02/22/18 10:52 02/22/18 10:52 02/22/18 10:52 General appearance: Present: A&O X 3, pleasant, no acute distress, answers questions appropriately - Head Head exam: Present: atraumatic, normocephalic - Eye Eye exam: Present: PERRL, conjuntiva pink, sclera anicteric Pupils: Present: PERRL - Neck Neck exam general surgery: Present: supple, trachea midline. Absent: lymphadenopathy - Respiratory Respiratory exam: Present: CTAB. Absent: accessory muscle use, rales, rhonchi, wheezes - Cardiovascular Cardiovascular exam: Present: RRR, +S1, +S2. Absent: diastolic murmur, gallop, rubs, systolic murmur - GI/Abdominal GI/Abdominal exam: Present: normal bowel sounds, soft, no peritoneal signs. Absent: distended, tenderness - Extremities Exam Extremities exam: Present: warm, radial pulses palpable and symmetrical. Absent : calf tenderness, cyanotic, pedal edema - Neurological Exam Neurological exam: Present: CN II-XII intact, oriented X3, no focal deficits. Absent: pronater drift, facial droop, speech deficit - Skin Skin exam: Present: dry, intact Internal Medicine: Result - Labs CBC & Chem 7: 02/22/18 04:44 02/22/18 04:44 Labs: Short CBC 02/22/18 Range/Units 04:44 WBC 4.2 L (4.3-11.1) K/mcL Hgb 8.5 L (11.5-15.4) g/dL Hct 24.6 L (35.3-44.9) % Plt Count 196 (140-400) K/mcL Neutrophils # 1.8 (1.6-8.9) K/mcL BMP 02/22/18 04:44 Sodium 139 Potassium 3.5 Chloride 106 Carbon Dioxide 28 BUN 8 Creatinine 0.53 L Glucose 88 Calcium 8.2 L Cardiac Enzymes 02/21/18 02/22/18 02/22/18 Range/Units 21:30 04:44 09:56 Troponin I < 0.03 < 0.03 < 0.03 (< 0.04) ng/mL Liver Function 02/22/18 Range/Units 04:44 Total Bilirubin 0.7 (0.3-1.0) mg/dL AST 15 (13-39) Units/L ALT 9 (7-52) Units/L Alkaline Phosphatase 47 (34-104) Units/L Albumin 3.1 L (3.5-5.7) g/dL - ABG Interpretation ABG results: PT/INR, D-dimer PT 11.4 Seconds (9.4-12.1) 02/22/18 04:44 Consult Discharge Plan - Plan Referrals: Tessa Stacy, JUVENILE COUNSELOR [Primary Care Provider] -
--- NOTE | 2018-02-22 16:34 | Electrocardiograph Report ---
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
[2018-02-23] MEDS ORDERED: Regadenoson 0.4 MG/5 ML SYRINGE IVP ONE (05:32)
[2018-02-23] MEDS: *HR* Heparin 5,000 UNIT/ML VIAL SQ SCH (05:50)
[2018-02-23] MEDS: Ertapenem 1,000 MG in 0.9 % Sodium Chloride Mini Bag 100 ML IVPB SCH (10:42)
[2018-02-23] MEDS: Aspirin Enteric Coated 81 MG Tablet PO SCH (10:43)
[2018-02-23] MEDS: hydrOXYzine pamoate 25 MG CAPSULE PO SCH (10:43)
[2018-02-23] MEDS: amLODIPine 5 MG TABLET PO SCH (10:43)
--- NOTE | 2018-02-23 10:57 | Event Note ---
Date of Encounter: 02/23/18 Time of Encounter: 10:55 - Cardiology Event Note Discussed and reviewed with , troponins negative, ECG unchanged. Plan was for stress, however states ok for patient to be discharged and follow up with cardiology in outpatient setting. Follow up set. If has recurrence of symptoms, can consider outpatient stress test. Cardiology will sign off.
[2018-02-23] MEDS: Cyanocobalamin (B-12) 1,000 MCG/ML VIAL SQ SCH (11:00)
--- NOTE | 2018-02-23 11:49 | Discharge Summary ---
- NOTES TO OUTPATIENT PROVIDER Notes to Outpatient Provider: Patient but for chest pain; ACS rule out, workup found to be negative. Continue to treat for UTI with Klebsiella; treating with Invanz, needs 14 days total treatment, last treatment day 02/25/2018. Home with home health to infuse ABX Orders not resulted at time of discharge: Pending orders 02/23/18 08:00 SP pharm nuclear stress Routine Date of Encounter: 02/23/18 Time of Encounter: 11:47 - Discharge Diagnosis (1) Chest pain Priority: Primary Status: Acute Assessment and Plan: Admitted with chest pain which occurred at rest. Troponins negative 3, no acute ischemic EKG changes. Cardiology has seen and evaluated, recommendations for outpatient follow-up. No need for stress test at this time per cardiology. Chest pain likely caused by anxiety. Continue cardiac medications upon discharge Qualifiers: Chest pain type: unspecified Qualified Code(s): R07.9 - Chest pain, unspecified (2) S/P coronary artery stent placement Priority: Secondary Status: Acute (3) Hypertension Priority: Secondary Status: Chronic Assessment and Plan: History of hypertension, BP stable throughout the stay. Continue home anti-HTN medications at discharge Qualifiers: Hypertension type: essential hypertension Qualified Code(s): I10 - Essential (primary) hypertension (4) CAD (coronary artery disease) Priority: Secondary Status: Chronic Qualifiers: Coronary Disease-Associated Artery/Lesion type: [place] artery [place] vs. transplanted heart: [place] heart Associated angina: angina presence unspecified Qualified Code(s): I25.10 - Atherosclerotic heart disease of [place] coronary artery without angina pectoris (5) UTI (urinary tract infection) Priority: Secondary Status: Acute Assessment and Plan: Been treated for this during prior admissions. Continue Invanz with home health infusion of ABX. Last day of ABX Invanz 02/26/80 Qualifiers: Urinary tract infection type: acute cystitis Hematuria presence: without hematuria Qualified Code(s): N30.00 - Acute cystitis without hematuria (6) Infection with ESBL Klebsiella oxytoca Priority: Secondary Status: Acute (7) DVT prophylaxis Priority: Secondary Status: Acute Hospital course: Ms. Young is a 77 year old female admitted for chest pain rule out ACS. EKG without any ischemic changes, troponins negative throughout stay. Patient had recent heart catheter with PCI however, due to negative workup and reproducible symptoms it appears the patient is likely having an anxiety attack. Cardiology was in consultation throughout the stay and signed off the patient with recommendations the patient follow-up as an outpatient basis. Additional recommendations included chest pain returns having outpatient stress test. Hospital course has been uneventful, patient has remained stable throughout the stay. Chest pain has subsided and did not return throughout this admission. Patient is medically stable and ready for discharge today. She has been instructed to follow up with primary care provider in one week and with cardiology in 2-3 weeks. Cardiology follow-up are descended per cardiology DIRECTOR OF HOME ECONOMICS. She is instructed to return to the ED should she have return of chest pain and anginal symptoms. Discharge discussed with: patient, family, nurse, case management - Time Spent with Patient Total time spent providing and/or coordinating discharge services: - Discharge Medications Home Medications: HYDROcodone/Acet 7.5/325 mg [[place] 7.5-325 mg] 1 tab PO Q4H PRN 07/09/17 [ History] Buspirone HCl [Buspar] 15 mg PO TID 02/08/18 [History] Dicyclomine [Bentyl] 20 mg PO QID PRN 02/08/18 [History] Metoprolol Succinate [Toprol Xl] 50 mg PO DAILY 02/08/18 [History] Omeprazole [PriLOSEC] 20 mg PO DAILY PRN 02/08/18 [History] hydrOXYzine HCl [Hydroxyzine HCl] 25 mg PO TID 02/08/18 [History] Atorvastatin [Lipitor] 20 mg PO HS #30 tablet 02/14/18 [Rx] Clopidogrel [Plavix] 75 mg PO DAILY #30 tablet 02/14/18 [Rx] Cyanocobalamin (B-12) [Vitamin B12] 1,000 mcg SQ DAILY #7 vial 02/14/18 [Rx] Ertapenem [INVanz] 1,000 mg IVPB DAILY #11 vial 02/14/18 [Rx] Isosorbide MONOnitrate (24 HR) [Imdur] 60 mg PO DAILY #30 tab.er.24h 02/14/18 [ Rx] amLODIPine [Norvasc] 5 mg PO DAILY #30 tablet 02/14/18 [Rx] Allergies/Adverse Reactions: 3 Allergy/AdvReac Type Severity Reaction Status Date / Time arthritis medicine Allergy Hives Uncoded 01/19/17 11:21 Date of admission: 02/21/18 17:15 Primary care physician: Tessa Stacy CNP Consults: 02/21/18 18:28 Consult to Licensed Loan Officer [CONS] Routine Reason for SW Consult: Currently has [facility] IV infussion in [place] for IV Ertapenem Discharging clinician: Dwight Collazo Anticipated date of discharge: 02/23/18 - Constitutional Vitals: Temp Pulse Resp BP Pulse Ox 98.3 F 65 17 162/75 94 02/23/18 07:29 02/23/18 07:29 02/23/18 07:29 02/23/18 07:29 02/23/18 07:29 General appearance: Present: A&O X 3, pleasant, no acute distress, answers questions appropriately - Head Head exam: Present: atraumatic, normocephalic - Eye Eye exam: Present: PERRL, conjuntiva pink, sclera anicteric Pupils: Present: PERRL - Neck Neck exam general surgery: Present: supple, trachea midline. Absent: lymphadenopathy - Respiratory Respiratory exam: Present: CTAB. Absent: accessory muscle use, rales, rhonchi, wheezes - Cardiovascular Cardiovascular exam: Present: RRR, +S1, +S2. Absent: diastolic murmur, gallop, rubs, systolic murmur - GI/Abdominal GI/Abdominal exam: Present: normal bowel sounds, soft, no peritoneal signs. Absent: distended, tenderness - Extremities Exam Extremities exam: Present: warm, radial pulses palpable and symmetrical. Absent : calf tenderness, cyanotic, pedal edema - Neurological Exam Neurological exam: Present: CN II-XII intact, oriented X3, no focal deficits. Absent: pronater drift, facial droop, speech deficit - Skin Skin exam: Present: dry, intact - Patient Status Disposition: Home Health Service Condition: Good Overall status at discharge: patient is progressing back to baseline - Discharge Instructions Follow Up With: Tessa Stacy CNP [Primary Care Provider] - 03/02/18 10:00 am Bryan Gavin DO [Partnered Physician] - 03/16/18 11:30 am Margarito Chandler MD [Partnered Physician] - 03/23/18 1:00 pm
[2018-02-23 11:57] VITALS: BP 131/84
--- NOTE | 2018-02-23 12:08 | Physician Discharge Referral ---
Home Health/Hosp Referral Info Transfer to: Home Health Provider in Charge Post Discharge: PCP - Diagnosis (1) Chest pain Priority: Primary Status: Acute (2) S/P coronary artery stent placement Priority: Secondary Status: Acute (3) Hypertension Priority: Secondary Status: Chronic (4) CAD (coronary artery disease) Priority: Secondary Status: Chronic (5) UTI (urinary tract infection) Priority: Primary Status: Acute (6) Infection with ESBL Klebsiella oxytoca Priority: Primary Status: Acute (7) DVT prophylaxis Status: Acute - Respiratory Orders Smoking Cessation: Smoking cessation has been advised. For more information, call the [place] [employer] Quit Line at 1-454-HVLZ-NOW. - Services Needed Following services are medically necessary services: Home Health Aide (Infusion of IV antibiotics, Invanz. Last infusion on 02/25/18) - Transfer Medications Home Medications: HYDROcodone/Acet 7.5/325 mg [[place] 7.5-325 mg] 1 tab PO Q4H PRN 07/09/17 [ History] Buspirone HCl [Buspar] 15 mg PO TID 02/08/18 [History] Dicyclomine [Bentyl] 20 mg PO QID PRN 02/08/18 [History] Metoprolol Succinate [Toprol Xl] 50 mg PO DAILY 02/08/18 [History] Omeprazole [PriLOSEC] 20 mg PO DAILY PRN 02/08/18 [History] hydrOXYzine HCl [Hydroxyzine HCl] 25 mg PO TID 02/08/18 [History] Atorvastatin [Lipitor] 20 mg PO HS #30 tablet 02/14/18 [Rx] Clopidogrel [Plavix] 75 mg PO DAILY #30 tablet 02/14/18 [Rx] Cyanocobalamin (B-12) [Vitamin B12] 1,000 mcg SQ DAILY #7 vial 02/14/18 [Rx] Ertapenem [INVanz] 1,000 mg IVPB DAILY #11 vial 02/14/18 [Rx] Isosorbide MONOnitrate (24 HR) [Imdur] 60 mg PO DAILY #30 tab.er.24h 02/14/18 [ Rx] amLODIPine [Norvasc] 5 mg PO DAILY #30 tablet 02/14/18 [Rx] Allergies/Adverse Reactions: 3 Allergy/AdvReac Type Severity Reaction Status Date / Time arthritis medicine Allergy Hives Uncoded 01/19/17 11:21 Certification: Further, I certify that my clinical findings support that this patient is homebound (i.e. absences from home require considerable and taxing effort and are for medical reasons or alevism services or infrequently or short duration when for other reasons) because: Homebound Reason: Patient requires assistance of a person or device to safely leave home (patient needs home IV ABX) Attestation: My signature below is to certify that this patient is under my care and that I, or nurse practitioner, or a physician's assistant strength coach working with me, has a face-to -face encounter with this patient.
[2018-02-23] MEDS ORDERED: Metoprolol XL (24 HR) Succ 50 MG TAB.ER.24H PO SCH (12:15)
[2018-02-23] MEDS: Isosorbide MONOnitrate (24 HR) 60 MG TAB.ER.24H PO SCH (13:19)
== END 2018-02-23 14:22 | disposition home health service (06) ==
LOC: 3BNU 13:44 → EMEROO 13:44 → 3BNU 18:03
PROVIDERS: ADMIT Internal Medicine; ATTEND Hospitalist

== ENCOUNTER 2020-10-11 07:25 | Observation (INO) ==
[2020-10-11] MEDS ORDERED: Isovue-370 500 ML BOTTLE IVP ONE (07:42)
[2020-10-11] MEDS ORDERED: Orphenadrine 60 MG/2 ML VIAL IVP ONE (07:50)
[2020-10-11 08:12] LABS: Basophils # 0.1 K/mcL (0.0-0.2); Basophils % 1.5 %; Eosinophils # 0.1 K/mcL (0.0-0.6); Eosinophils % 1.5 %; Hematocrit 33.2 % (35.3-44.9); Hemoglobin 11.2 g/dL (11.5-15.4); Lymphocytes # 0.8 K/mcL (0.6-4.6); Lymphocytes % 25.1 %; Mean Corpuscular HGB Conc 33.7 g/dL (31.6-35.5); Mean Corpuscular Hemoglobin 30.5 pg (28.0-33.3); Mean Corpuscular Volume 90.5 fL (83.0-100.0); Mean Platelet Volume 9.3 fL (9.4-12.4); Monocytes # 0.4 K/mcL (0.0-1.3); Monocytes % 10.6 %; Platelet Count 165 K/mcL (140-400); Red Blood Count 3.67 M/mcL (3.82-4.97); Red Cell Distribution Width 12.6 % (11.5-14.5); Segmented Neutrophils % 61.3 %; White Blood Count 3.3 K/mcL (4.3-11.1)
[2020-10-11 08:28] LABS: Alanine Aminotransferase 10 Units/L (7-52); Albumin 3.6 g/dL (3.5-5.7); Albumin/Globulin Ratio 1.1 (1.1-2.2); Alkaline Phosphatase 60 Units/L (34-104); Aspartate Amino Transferase 22 Units/L (13-39); BUN/Creatinine Ratio 17 (6-26); Bilirubin,Total 0.7 mg/dL (0.3-1.0); Blood Urea Nitrogen 11 mg/dL (8-23); Calcium 8.8 mg/dL (8.6-10.3); Carbon Dioxide 27 mEq/L (23-29); Chloride 100 mEq/L (98-107); Globulin 3.3 g/dL (2.4-3.5); Glucose 104 mg/dL (70-105); Osmolality,Calculated 276 (280-300); Potassium 3.8 mEq/L (3.5-5.1); Sodium 133 mEq/L (136-145); Total Protein 6.9 g/dL (6.4-8.9); Troponin I < 0.03 ng/mL (< 0.04); eGFR For African Americans > 60 (> 60); eGFR For Non-African Americans > 60 (> 60)
[2020-10-11] MEDS ORDERED: Morphine Sulfate 2 MG/ML SYRINGE IVP ONE (09:35)
[2020-10-11] MEDS ORDERED: Aspirin 325 MG TABLET PO ONE (09:42)
[2020-10-11] MEDS ORDERED: Acetaminophen 325 MG TABLET PO PRN (11:42)
[2020-10-11] MEDS ORDERED: Ondansetron 4 MG/2 ML VIAL IVP PRN (11:42)
[2020-10-11] MEDS ORDERED: Naloxone 0.4 MG/ML INJ IVP PRN (11:42)
[2020-10-11 11:45] LABS: C-Reactive Protein < 5 mg/L (Less than 10)
[2020-10-11 12:02] LABS: Ferritin 21 ng/mL (10-120)
[2020-10-11] MEDS: lisinopriL 20 MG TABLET PO SCH (14:56)
[2020-10-11] MEDS: ALPRAZolam 0.5 MG TABLET PO SCH ×2 (14:56→21:24)
[2020-10-11] MEDS: Isosorbide MONOnitrate (24 HR) 30 MG TAB.ER.24H PO SCH (14:56)
[2020-10-11] MEDS: *HR* HYDROcodone/Acet 7.5/325 mg TABLET PO SCH ×3 (14:56→21:24)
[2020-10-11] MEDS: Metoprolol XL (24 HR) Succ 25 MG TAB.ER.24H PO SCH (14:57)
[2020-10-12 06:53] LABS: BUN/Creatinine Ratio 20 (6-26); Blood Urea Nitrogen 12 mg/dL (8-23); Calcium 8.7 mg/dL (8.6-10.3); Carbon Dioxide 26 mEq/L (23-29); Chloride 102 mEq/L (98-107); Glucose 97 mg/dL (70-105); Osmolality,Calculated 278 (280-300); Potassium 3.8 mEq/L (3.5-5.1); Sodium 134 mEq/L (136-145); Troponin I < 0.03 ng/mL (< 0.04); eGFR For African Americans > 60 (> 60); eGFR For Non-African Americans > 60 (> 60)
[2020-10-12 06:56] VITALS: BP 175/83
[2020-10-12] MEDS: lisinopriL 20 MG TABLET PO SCH (07:33)
[2020-10-12] MEDS: *HR* HYDROcodone/Acet 7.5/325 mg TABLET PO SCH (07:33)
[2020-10-12] MEDS: Isosorbide MONOnitrate (24 HR) 30 MG TAB.ER.24H PO SCH (07:33)
[2020-10-12] MEDS: ALPRAZolam 0.5 MG TABLET PO SCH (07:33)
[2020-10-12] MEDS: Metoprolol XL (24 HR) Succ 25 MG TAB.ER.24H PO SCH (07:34)
[2020-10-12] MEDS ORDERED: Isosorbide MONOnitrate (24 HR) 30 MG TAB.ER.24H PO SCH (09:00)
[2020-10-12] MEDS ORDERED: lisinopriL 20 MG TABLET PO SCH (09:00)
[2020-10-12] MEDS ORDERED: Metoprolol XL (24 HR) Succ 25 MG TAB.ER.24H PO SCH (09:00)
== END 2020-10-12 11:12 | disposition home or self-care (01) ==
LOC: EMEROOARM 07:25 → 3BNU 07:25
PROVIDERS: ADMIT Internal Medicine; ATTEND Internal Medicine

== ENCOUNTER 2020-11-02 05:26 | Inpatient (IN) ==
[2020-11-02 05:54] LABS: Basophils % 0.4 %; Eosinophils % 0.1 %; Hematocrit 30.3 % (35.3-44.9); Hemoglobin 10.2 g/dL (11.5-15.4); Immature Granulocytes % 0.7 % (0-4); Lymphocytes # 0.9 K/mcL (0.6-4.6); Lymphocytes % 9.2 %; Mean Corpuscular HGB Conc 33.7 g/dL (31.6-35.5); Mean Corpuscular Volume 92.1 fL (83.0-100.0); Mean Platelet Volume 9.2 fL (9.4-12.4); Monocytes # 1.2 K/mcL (0.0-1.3); Monocytes % 12.7 %; Neutrophils # 7.5 K/mcL (1.6-8.9); Platelet Count 178 K/mcL (140-400); Red Blood Count 3.29 M/mcL (3.82-4.97); Red Cell Distribution Width 12.7 % (11.5-14.5); Segmented Neutrophils % 76.9 %; White Blood Count 9.8 K/mcL (4.3-11.1)
[2020-11-02 06:09] LABS: BUN/Creatinine Ratio 17 (6-26); Blood Urea Nitrogen 13 mg/dL (8-23); Calcium 8.7 mg/dL (8.6-10.3); Carbon Dioxide 23 mEq/L (23-29); Chloride 100 mEq/L (98-107); Glucose 114 mg/dL (70-105); Osmolality,Calculated 275 (280-300); Potassium 4.1 mEq/L (3.5-5.1); Sodium 132 mEq/L (136-145); eGFR For African Americans > 60 (> 60); eGFR For Non-African Americans > 60 (> 60)
[2020-11-02 06:11] LABS: Troponin I 0.03 ng/mL (< 0.04)
[2020-11-02] MEDS ORDERED: 0.9 % Sodium Chloride 1,000 ML IVC ONE (06:25)
[2020-11-02 06:27] LABS: Bacteria,Urine Few per hpf (None-Few); Bilirubin,Urine Negative (Negative); Blood,Urine Small (Negative); Clarity,Urine Ex.Turbid (Clear); Color,Urine Yellow (Yellow); Glucose,Urine (UA) Normal (Normal); Ketones,Urine Negative (Negative); Leukocyte Esterase,Urine Large (Negative); Nitrite,Urine Positive (Negative); Protein,Urine Trace mg/dL (Neg-Trace); RBC,Urine 30-50 per hpf (0-3); Squamous Epithelial Cell,Urine Few per hpf (None-Few); Urobilinogen,Urine Normal (Normal); WBC,Urine TNTC per hpf (0-3)
[2020-11-02] MEDS ORDERED: cefTRIAXone 1,000 MG in 0.9 % Sodium Chloride Mini Bag 100 ML IVPB ONE (06:29)
[2020-11-02] MEDS ORDERED: Ondansetron 4 MG/2 ML VIAL IVP PRN (07:39)
[2020-11-02] MEDS ORDERED: *HR* HYDROcodone/Acet 7.5/325 mg TABLET PO PRN (07:40)
[2020-11-02] MEDS: ALPRAZolam 0.5 MG TABLET PO SCH ×3 (09:32→20:18)
[2020-11-02] MEDS: Metoprolol XL (24 HR) Succ 25 MG TAB.ER.24H PO SCH (09:33)
[2020-11-02] MEDS: Isosorbide MONOnitrate (24 HR) 30 MG TAB.ER.24H PO SCH (09:33)
[2020-11-02] MEDS: Ertapenem 1,000 MG in 0.9 % Sodium Chloride Mini Bag 100 ML IVPB SCH (09:33)
[2020-11-02] MEDS: lisinopriL 20 MG TABLET PO SCH (09:33)
[2020-11-02 11:51] LABS: Magnesium 1.9 mg/dL (1.6-2.6); Phosphorous 3.1 mg/dL (2.7-4.5)
[2020-11-02] MEDS ORDERED: Mag Hydrox/Al Hydrox/Simeth 30 ML UDC PO PRN (14:22)
[2020-11-02] MEDS: Acetaminophen 325 MG TABLET PO PRN (16:14)
[2020-11-02] MEDS ORDERED: Gabapentin 300 MG CAPSULE PO SCH (21:00)
[2020-11-03] MEDS: Acetaminophen 325 MG TABLET PO PRN ×2 (00:10→15:02)
[2020-11-03] MEDS: Metoprolol XL (24 HR) Succ 25 MG TAB.ER.24H PO SCH (08:55)
[2020-11-03] MEDS: ALPRAZolam 0.5 MG TABLET PO SCH ×3 (08:55→20:41)
[2020-11-03] MEDS: Isosorbide MONOnitrate (24 HR) 30 MG TAB.ER.24H PO SCH (08:55)
[2020-11-03] MEDS: Aspirin Enteric Coated 81 MG Tablet PO SCH (08:55)
[2020-11-03] MEDS: lisinopriL 20 MG TABLET PO SCH (08:55)
[2020-11-03] MEDS: Ertapenem 1,000 MG in 0.9 % Sodium Chloride Mini Bag 100 ML IVPB SCH (08:56)
[2020-11-03] MEDS: Gabapentin 100 MG CAPSULE PO SCH ×3 (09:06→20:41)
[2020-11-03] MEDS: polyethylene glycoL 3350 17 GM POWD.PACK PO SCH (20:41)
[2020-11-04 07:15] VITALS: BP 179/92
[2020-11-04] MEDS: ALPRAZolam 0.5 MG TABLET PO SCH (09:32)
[2020-11-04] MEDS: Gabapentin 100 MG CAPSULE PO SCH (09:33)
[2020-11-04] MEDS: Aspirin Enteric Coated 81 MG Tablet PO SCH (09:33)
[2020-11-04] MEDS: lisinopriL 20 MG TABLET PO SCH (09:33)
[2020-11-04] MEDS: Ertapenem 1,000 MG in 0.9 % Sodium Chloride Mini Bag 100 ML IVPB SCH (09:34)
[2020-11-04] MEDS: polyethylene glycoL 3350 17 GM POWD.PACK PO SCH (09:35)
[2020-11-04] MEDS: Metoprolol XL (24 HR) Succ 25 MG TAB.ER.24H PO SCH (09:35)
[2020-11-04] MEDS: Isosorbide MONOnitrate (24 HR) 30 MG TAB.ER.24H PO SCH (09:35)
== END 2020-11-04 13:29 | disposition home or self-care (01) | DRG 690 ==
LOC: 3BNU 05:26 → EMEROOARM 05:26 → SUATTDRO 07:31 → 3BNU 07:59 → SUATTDRO 11-03 14:22
PROVIDERS: ADMIT Internal Medicine; ATTEND Internal Medicine

== ENCOUNTER 2021-04-23 19:04 | Observation (INO) ==
[2021-04-23 19:49] LABS: Bilirubin,Urine Negative (Negative); Blood,Urine Trace (Negative); Clarity,Urine Clear (Clear); Color,Urine Colorless (Yellow); Glucose,Urine (UA) Normal (Normal); Ketones,Urine Negative (Negative); Leukocyte Esterase,Urine Negative (Negative); Nitrite,Urine Negative (Negative); PH,Urine 6.5 pH Units (5.0-8.0); Protein,Urine Negative (Neg-Trace); RBC,Urine 0-3 per hpf (0-3); Specific Gravity,Urine 1.007 (1.010-1.025); Squamous Epithelial Cell,Urine Few per hpf (None-Few); Urobilinogen,Urine Normal (Normal); WBC,Urine 0-3 per hpf (0-3)
[2021-04-23] MEDS ORDERED: Aspirin 81 MG TAB.CHEW PO ONE (20:01)
[2021-04-23] MEDS ORDERED: Isovue-370 500 ML BOTTLE IVP ONE (20:02)
[2021-04-23 20:46] LABS: Basophils % 0.6 %; Eosinophils # 0.1 K/mcL (0.0-0.6); Eosinophils % 1.1 %; Hematocrit 32.9 % (35.3-44.9); Immature Granulocytes % 0.4 % (0-4); Lymphocytes % 21.3 %; Mean Corpuscular HGB Conc 33.4 g/dL (31.6-35.5); Mean Corpuscular Hemoglobin 31.3 pg (28.0-33.3); Mean Corpuscular Volume 93.7 fL (83.0-100.0); Mean Platelet Volume 9.6 fL (9.4-12.4); Monocytes # 0.5 K/mcL (0.0-1.3); Monocytes % 9.8 %; Neutrophils # 3.1 K/mcL (1.6-8.9); Platelet Count 149 K/mcL (140-400); Red Blood Count 3.51 M/mcL (3.82-4.97); Red Cell Distribution Width 12.2 % (11.5-14.5); Segmented Neutrophils % 66.8 %; White Blood Count 4.7 K/mcL (4.3-11.1)
[2021-04-23 21:02] LABS: Alanine Aminotransferase 11 Units/L (7-52); Albumin/Globulin Ratio 1.3 (1.1-2.2); Alkaline Phosphatase 59 Units/L (34-104); Aspartate Amino Transferase 20 Units/L (13-39); BUN/Creatinine Ratio 17 (6-26); Bilirubin,Direct 0.2 mg/dL (0.0-0.2); Bilirubin,Indirect 0.6 mg/dL (0.0-1.0); Bilirubin,Total 0.8 mg/dL (0.3-1.0); Blood Urea Nitrogen 12 mg/dL (8-23); Calcium 8.8 mg/dL (8.6-10.3); Carbon Dioxide 24 mEq/L (23-29); Chloride 98 mEq/L (98-107); Globulin 3.1 g/dL (2.4-3.5); Glucose 95 mg/dL (70-105); Lipase 34 Units/L (11-82); Osmolality,Calculated 272 (280-300); Potassium 3.9 mEq/L (3.5-5.1); Sodium 131 mEq/L (136-145); Total Protein 7.1 g/dL (6.4-8.9); Troponin I < 0.03 ng/mL (< 0.04); eGFR For African Americans > 60 (> 60); eGFR For Non-African Americans > 60 (> 60)
[2021-04-24 02:21] LABS: Adenovirus Not Detected (Not Detect); Bordetella Pertussis Not Detected (Not Detect); Chlamydophila pneumoniae Not Detected (Not Detect); Coronavirus 229E Not Detected (Not Detect); Coronavirus HKU1 Not Detected (Not Detect); Coronavirus NL63 Not Detected (Not Detect); Coronavirus OC43 Not Detected (Not Detect); Human Metapneumovirus Not Detected (Not Detect); Human Rhinovirus/Enterovirus Not Detected (Not Detect); Influenza A Subtype 2009 H1 Not Detected (Not Detect); Influenza B Not Detected (Not Detect); Mycoplasma pneumoniae Not Detected (Not Detect); Parainfluenza Virus 1 Not Detected (Not Detect); Parainfluenza Virus 2 Not Detected (Not Detect); Parainfluenza Virus 3 Not Detected (Not Detect); Parainfluenza Virus 4 Not Detected (Not Detect); Respiratory Syncytial Virus Not Detected (Not Detect); SARS-CoV-2 Not Detected (Not Detect)
[2021-04-24] MEDS ORDERED: Aluminum Hydroxide 15 ML UDC PO PRN (03:38)
[2021-04-24] MEDS ORDERED: Perflutren Lipid Microsphere 1.3 ML in 0.9 % Sodium Chloride 8.7 ML IVP PRN (03:41)
[2021-04-24] MEDS ORDERED: Acetaminophen 325 MG TABLET PO PRN (03:54)
[2021-04-24] MEDS ORDERED: Naloxone 0.4 MG/ML INJ IVP PRN (03:54)
[2021-04-24] MEDS: Ondansetron 4 MG/2 ML VIAL IVP PRN (03:54)
[2021-04-24] MEDS ORDERED: Morphine Sulfate 2 MG/ML SYRINGE IVP PRN (04:22)
[2021-04-24] MEDS ORDERED: Nitroglycerin 0.4 MG TAB.SUBL SL PRN (04:22)
[2021-04-24] MEDS: ALPRAZolam 0.25 MG TABLET PO PRN ×2 (04:25→20:57)
[2021-04-24 04:36] LABS: Hematocrit 32.4 % (35.3-44.9); Hemoglobin 11.2 g/dL (11.5-15.4); Mean Corpuscular HGB Conc 34.6 g/dL (31.6-35.5); Mean Corpuscular Hemoglobin 31.9 pg (28.0-33.3); Mean Corpuscular Volume 92.3 fL (83.0-100.0); Mean Platelet Volume 9.5 fL (9.4-12.4); Platelet Count 149 K/mcL (140-400); Red Blood Count 3.51 M/mcL (3.82-4.97); Red Cell Distribution Width 12.2 % (11.5-14.5); White Blood Count 4.5 K/mcL (4.3-11.1)
[2021-04-24 04:43] LABS: Estimated Average Glucose 114 mg/dl; Hemoglobin A1C 5.6 %
[2021-04-24 04:47] LABS: INR 1.1; Prothrombin Time 12.3 Seconds (9.4-12.1)
[2021-04-24 04:50] LABS: Activated Partial Thrombo Time 35.7 Seconds (26.0-36.0)
[2021-04-24 04:58] LABS: BUN/Creatinine Ratio 16 (6-26); Blood Urea Nitrogen 11 mg/dL (8-23); Calcium 8.7 mg/dL (8.6-10.3); Carbon Dioxide 25 mEq/L (23-29); Chloride 101 mEq/L (98-107); Chol/HDL Ratio 3.1 (0-4.9); Cholesterol 144 mg/dL (< 200); Glucose 124 mg/dL (70-105); HDL Cholesterol 46 mg/dL (40-59); LDL Cholesterol,Calculated 88 mg/dL (< 100); Magnesium 1.8 mg/dL (1.6-2.6); Osmolality,Calculated 279 (280-300); Potassium 4.1 mEq/L (3.5-5.1); Sodium 134 mEq/L (136-145); Triglycerides 52 mg/dL (< 150); eGFR For African Americans > 60 (> 60); eGFR For Non-African Americans > 60 (> 60)
[2021-04-24 05:12] LABS: Thyroid Stimulating Hormone 3.023 mcIU/mL (0.340-5.600)
[2021-04-24] MEDS ORDERED: *HR* Heparin 5,000 UNIT/ML VIAL IVP ONE (05:14)
[2021-04-24] MEDS ORDERED: *HR* Heparin 5,000 UNIT/ML VIAL IVP PRN ×2 (05:14)
[2021-04-24 05:23] LABS: Folate > 22.3 ng/mL (3.0-16.0); Vitamin B12 274 pg/mL (250-1100)
[2021-04-24] MEDS: Heparin 25,000UNIT/250ML 1/2NS 25,000 UNIT/250 ML IV.SOLN IVC SCH (05:53)
[2021-04-24] MEDS ORDERED: *HR* Heparin 5,000 UNIT/ML VIAL SQ SCH (06:00)
[2021-04-24] MEDS: Gabapentin 100 MG CAPSULE PO SCH ×3 (07:45→20:57)
[2021-04-24] MEDS: Aspirin Enteric Coated 81 MG Tablet PO SCH (07:45)
[2021-04-24] MEDS: Isosorbide MONOnitrate (24 HR) 30 MG TAB.ER.24H PO SCH (07:45)
[2021-04-24] MEDS: Metoprolol XL (24 HR) Succ 25 MG TAB.ER.24H PO SCH (07:46)
[2021-04-24] MEDS: lisinopriL 20 MG TABLET PO SCH (07:46)
[2021-04-24] MEDS ORDERED: GI Cocktail 40 ML EACH PO ONE (12:36)
[2021-04-24 20:18] LABS: Adenovirus F 40/41 PCR Not detected (Not detect); Astrovirus PCR Not detected (Not detect); C.difficile Toxin A/B Gene PCR Not detected (Not detect); Campylobacter by PCR Not detected (Not detect); Cryptosporidium by PCR Not detected (Not detect); Cyclospora cayetanensis PCR Not detected (Not detect); E. coli O157 by PCR Not detected (Not detect); Entamoeba histolytica PCR Not detected (Not detect); Enteroaggregative E.coli(EAEC) Not detected (Not detect); Enteropathogenic E.coli(EPEC) Not detected (Not detect); Enterotoxigenic E.coli (ETEC) Not detected (Not detect); Giardia lamblia PCR Not detected (Not detect); Norovirus GI/GII PCR Not detected (Not detect); Plesiomonas shigelloides PCR Not detected (Not detect); Rotavirus A PCR Not detected (Not detect); Salmonella PCR Not detected (Not detect); Sapovirus PCR Not detected (Not detect); Shig/EnteroinvasiveE coli EIEC Not detected (Not detect); Shigalike tox-prod E coli STEC Not detected (Not detect); Vibrio PCR Not detected (Not detect); Vibrio cholerae PCR Not detected (Not detect); Yersinia enterocolitica PCR Not detected (Not detect)
[2021-04-25] MEDS: Heparin 25,000UNIT/250ML 1/2NS 25,000 UNIT/250 ML IV.SOLN IVC SCH (03:27)
[2021-04-25 05:51] LABS: Hematocrit 31.3 % (35.3-44.9); Hemoglobin 10.7 g/dL (11.5-15.4); Mean Corpuscular HGB Conc 34.2 g/dL (31.6-35.5); Mean Corpuscular Hemoglobin 31.8 pg (28.0-33.3); Mean Corpuscular Volume 92.9 fL (83.0-100.0); Mean Platelet Volume 9.6 fL (9.4-12.4); Platelet Count 146 K/mcL (140-400); Red Blood Count 3.37 M/mcL (3.82-4.97); Red Cell Distribution Width 12.4 % (11.5-14.5); White Blood Count 5.1 K/mcL (4.3-11.1)
[2021-04-25 06:09] LABS: Magnesium 1.8 mg/dL (1.6-2.6); Phosphorous 3.4 mg/dL (2.7-4.5)
[2021-04-25 06:10] LABS: BUN/Creatinine Ratio 14 (6-26); Blood Urea Nitrogen 9 mg/dL (8-23); Calcium 8.5 mg/dL (8.6-10.3); Carbon Dioxide 23 mEq/L (23-29); Chloride 102 mEq/L (98-107); Glucose 101 mg/dL (70-105); Osmolality,Calculated 273 (280-300); Potassium 3.6 mEq/L (3.5-5.1); Sodium 132 mEq/L (136-145); eGFR For African Americans > 60 (> 60); eGFR For Non-African Americans > 60 (> 60)
[2021-04-25] MEDS: Isosorbide MONOnitrate (24 HR) 30 MG TAB.ER.24H PO SCH (07:19)
[2021-04-25] MEDS: Aspirin Enteric Coated 81 MG Tablet PO SCH (07:19)
[2021-04-25] MEDS: Metoprolol XL (24 HR) Succ 25 MG TAB.ER.24H PO SCH (07:20)
[2021-04-25] MEDS: lisinopriL 20 MG TABLET PO SCH (07:20)
[2021-04-25] MEDS: Gabapentin 100 MG CAPSULE PO SCH (07:20)
[2021-04-25] MEDS: Ondansetron 4 MG/2 ML VIAL IVP PRN (08:03)
[2021-04-25] MEDS: ALPRAZolam 0.25 MG TABLET PO PRN (10:04)
[2021-04-25 10:54] VITALS: PULSE 69; TEMP 97.9; O2SAT 96
[2021-04-25] MEDS ORDERED: Apixaban 5 MG TABLET PO SCH (11:00)
[2021-04-25 12:18] VITALS: BP 136/72
== END 2021-04-25 14:11 | disposition home or self-care (01) ==
LOC: 3BNU 19:04 → EMEROOARM 19:04 → SUATTDRO 04-24 01:09 → 3BNU 04-24 02:14
PROVIDERS: ADMIT Student in an Organized Health Care Education/Training Program; ATTEND Internal Medicine

== ENCOUNTER 2022-05-21 04:41 | Inpatient (IN) ==
[2022-05-21] MEDS ORDERED: Iopamidol - 370 500 ML MLS IVP ONE (06:20)
[2022-05-21 07:03] LABS: Basophils % 0.1 %; Hematocrit 27.4 % (35.3-44.9); Hemoglobin 8.6 g/dL (11.5-15.4); Immature Granulocytes % 0.3 % (0-4); Lymphocytes # 0.5 K/mcL (0.6-4.6); Lymphocytes % 6.7 %; Mean Corpuscular HGB Conc 31.4 g/dL (31.6-35.5); Mean Corpuscular Hemoglobin 27.8 pg (28.0-33.3); Mean Corpuscular Volume 88.7 fL (83.0-100.0); Mean Platelet Volume 10.7 fL (9.4-12.4); Monocytes # 0.1 K/mcL (0.0-1.3); Monocytes % 1.3 %; Neutrophils # 6.1 K/mcL (1.6-8.9); Platelet Count 105 K/mcL (140-400); Red Blood Count 3.09 M/mcL (3.82-4.97); Red Cell Distribution Width 15.3 % (11.5-14.5); Segmented Neutrophils % 91.6 %; White Blood Count 6.7 K/mcL (4.3-11.1)
[2022-05-21 07:15] LABS: Bilirubin,Urine Negative (Negative); Blood,Urine Trace (Negative); Clarity,Urine Clear (Clear); Color,Urine Light-Yellow (Yellow); Glucose,Urine (UA) Normal (Normal); Ketones,Urine Negative (Negative); Leukocyte Esterase,Urine Negative (Negative); Mucus,Urine Few per lpf (None-Few); Nitrite,Urine Negative (Negative); Protein,Urine Negative (Neg-Trace); Specific Gravity,Urine 1.011 (1.010-1.025); Squamous Epithelial Cell,Urine Few per hpf (None-Few); Urobilinogen,Urine Normal (Normal); WBC,Urine 0-3 per hpf (0-3)
[2022-05-21 07:21] LABS: Influenza A PCR Negative (Negative); Influenza B PCR Negative (Negative); Resp. Syncytial Virus PCR Negative (Negative); SARS-CoV-2 by PCR (In House) Negative (Negative)
[2022-05-21 07:45] LABS: Alanine Aminotransferase 7 Units/L (7-52); Albumin 3.9 g/dL (3.5-5.7); Albumin/Globulin Ratio 1.1 (1.1-2.2); Alkaline Phosphatase 63 Units/L (34-104); Aspartate Amino Transferase 19 Units/L (13-39); BUN/Creatinine Ratio 14 (6-26); Bilirubin,Direct 0.5 mg/dL (0.0-0.2); Bilirubin,Total 1.5 mg/dL (0.3-1.0); Blood Urea Nitrogen 12 mg/dL (8-23); Carbon Dioxide 26 mEq/L (23-29); Chloride 101 mEq/L (98-107); Ethanol < 10 mg/dL (Less than 10); Globulin 3.7 g/dL (2.4-3.5); Glucose 108 mg/dL (70-105); Lipase 29 Units/L (11-82); Osmolality,Calculated 280 (280-300); Potassium 3.6 mEq/L (3.5-5.1); Sodium 135 mEq/L (136-145); Total Protein 7.6 g/dL (6.4-8.9); Troponin I 0.05 ng/mL (< 0.04)
[2022-05-21 08:00] LABS: Thyroid Stimulating Hormone 1.327 mcIU/mL (0.340-5.600)
[2022-05-21] MEDS ORDERED: Furosemide 40 MG/4 ML VIAL IVP ONE (08:09)
[2022-05-21 08:45] LABS: Amphetamine Screen,Urine Negative ng/mL (Cutoff=1000); Barbiturate Screen,Urine Negative ng/mL (Cutoff=200); Benzodiazepines Screen,Urine Positive ng/mL (Cutoff=200); Cannabinoid Screen,Urine Negative ng/mL (Cutoff = 50); Cocaine Screen,Urine Negative ng/mL (Cutoff= 300); Opiate Screen,Urine Positive ng/mL (Cutoff=300); Phencyclidine Screen,Urine Negative ng/mL (Cutoff=25)
[2022-05-21] MEDS ORDERED: Piperacillin/Tazobactam 3.375 GM in 0.9 % Sodium Chloride Mini Bag 100 ML IVPB ONE (10:09)
[2022-05-21] MEDS ORDERED: Pantoprazole 40 MG VIAL IVP ONE (10:32)
[2022-05-21] MEDS ORDERED: Ondansetron 4 MG/2 ML VIAL IVP PRN (10:54)
[2022-05-21] MEDS ORDERED: Naloxone 0.4 MG/ML INJ IVP PRN (10:54)
[2022-05-21] MEDS ORDERED: Lidocaine -MPF 2% 5 ML VIAL ONE (11:53)
[2022-05-21] MEDS ORDERED: *HR* Succinylcholine 200 MG/10 ML VIAL IVP ONE (11:53)
[2022-05-21] MEDS ORDERED: *HR* Propofol 200 MG/20 ML VIAL IVP ONE (11:53)
[2022-05-21] MEDS ORDERED: Lidocaine HCL 4 ML Topical Solution (Laryng-O-Jet Kit Sterile Pak) TP ONE (12:54)
[2022-05-21] MEDS ORDERED: EPHEDrine 50 MG/ML VIAL ONE (13:05)
[2022-05-21] MEDS ORDERED: Ondansetron 4 MG/2 ML VIAL ONE (13:23)
[2022-05-21] MEDS ORDERED: CefOXitin 2,000 MG VIAL ONE (13:43)
[2022-05-21] MEDS ORDERED: ALPRAZolam 0.5 MG TABLET PO PRN (15:31)
[2022-05-21] MEDS: Piperacillin/Tazobactam 3.375 GM in 0.9 % Sodium Chloride Mini Bag 100 ML IVPB SCH ×2 (16:35→23:47)
[2022-05-21] MEDS: 0.9 % Sodium Chloride 1,000 ML IVC SCH ×2 (16:35→23:46)
[2022-05-21] MEDS: *HR* Heparin 5,000 UNIT/ML VIAL SQ SCH ×2 (16:40→21:41)
[2022-05-21] MEDS ORDERED: Chloraseptic Spray 177 ML BOTTLE MM PRN (23:43)
[2022-05-22 03:27] LABS: Red Cell Distribution Width 15.9 % (11.5-14.5)
[2022-05-22 03:29] LABS: Basophils % 0.2 %; Hematocrit 30.2 % (35.3-44.9); Hemoglobin 9.8 g/dL (11.5-15.4); Immature Granulocytes % 0.6 % (0-4); Immature Platelets 5.6 % (1.1-6.1); Lymphocytes % 11.7 %; Mean Corpuscular HGB Conc 32.5 g/dL (31.6-35.5); Mean Corpuscular Hemoglobin 28.5 pg (28.0-33.3); Mean Corpuscular Volume 87.8 fL (83.0-100.0); Mean Platelet Volume 11.2 fL (9.4-12.4); Monocytes # 1.1 K/mcL (0.0-1.3); Monocytes % 9.7 %; Red Blood Count 3.44 M/mcL (3.82-4.97); Segmented Neutrophils % 77.8 %; White Blood Count 11.5 K/mcL (4.3-11.1)
[2022-05-22 03:42] LABS: Lymphocytes # 1.4 K/mcL (0.6-4.6); Platelet Count 91 K/mcL (140-400)
[2022-05-22 03:49] LABS: Potassium 3.4 mEq/L (3.5-5.1)
[2022-05-22] MEDS: *HR* Heparin 5,000 UNIT/ML VIAL SQ SCH (04:45)
[2022-05-22 08:45] LABS: Magnesium 1.7 mg/dL (1.6-2.6); Phosphorous 3.2 mg/dL (2.7-4.5)
[2022-05-22 08:50] LABS: Troponin I 1.11 ng/mL (< 0.04)
[2022-05-22] MEDS: Metoprolol XL (24 HR) Succ 50 MG TAB.ER.24H PO SCH (09:22)
[2022-05-22] MEDS: Pantoprazole 40 MG VIAL IVP SCH (09:22)
[2022-05-22] MEDS: Isosorbide MONOnitrate (24 HR) 30 MG TAB.ER.24H PO SCH (09:22)
[2022-05-22] MEDS: Piperacillin/Tazobactam 3.375 GM in 0.9 % Sodium Chloride Mini Bag 100 ML IVPB SCH ×2 (09:23→16:38)
[2022-05-22] MEDS ORDERED: *HR* Heparin 5,000 UNIT/ML VIAL IVP ONE (10:14)
[2022-05-22] MEDS ORDERED: *HR* Heparin 5,000 UNIT/ML VIAL IVP PRN (10:14)
[2022-05-22] MEDS: Heparin 25,000UNIT/250ML 1/2NS 25,000 UNIT/250 ML IV.SOLN IVC SCH (11:02)
[2022-05-22 11:08] LABS: Heparin anti-factor XA UFH < 0.04 IU/mL (0.30-0.70); INR 1.4; Prothrombin Time 15.2 Seconds (9.4-12.1)
[2022-05-22] MEDS: D5% in 0.9% NACL 1,000 ML IVC SCH (12:12)
[2022-05-23] MEDS: Piperacillin/Tazobactam 3.375 GM in 0.9 % Sodium Chloride Mini Bag 100 ML IVPB SCH ×3 (00:27→16:28)
[2022-05-23] MEDS: D5% in 0.9% NACL 1,000 ML IVC SCH ×2 (00:28→16:59)
[2022-05-23 01:08] LABS: Mean Corpuscular Volume 90.1 fL (83.0-100.0); Red Cell Distribution Width 15.9 % (11.5-14.5)
[2022-05-23 01:10] LABS: Basophils % 0.3 %; Eosinophils % 0.3 %; Hematocrit 28.2 % (35.3-44.9); Hemoglobin 8.9 g/dL (11.5-15.4); Immature Granulocytes % 0.4 % (0-4); Immature Platelets 4.4 % (1.1-6.1); Lymphocytes # 0.8 K/mcL (0.6-4.6); Lymphocytes % 8.8 %; Mean Corpuscular HGB Conc 31.6 g/dL (31.6-35.5); Mean Corpuscular Hemoglobin 28.4 pg (28.0-33.3); Mean Platelet Volume 11.1 fL (9.4-12.4); Monocytes # 0.6 K/mcL (0.0-1.3); Monocytes % 6.6 %; Neutrophils # 7.8 K/mcL (1.6-8.9); Platelet Count 125 K/mcL (140-400); Red Blood Count 3.13 M/mcL (3.82-4.97); Segmented Neutrophils % 83.6 %; White Blood Count 9.3 K/mcL (4.3-11.1)
[2022-05-23 01:15] LABS: Chol/HDL Ratio 2.6 (0-4.9); Magnesium 1.4 mg/dL (1.6-2.6); Phosphorous 1.6 mg/dL (2.7-4.5)
[2022-05-23 02:09] LABS: Calcium 8.1 mg/dL (8.6-10.3); Potassium 3.5 mEq/L (3.5-5.1)
[2022-05-23] MEDS: *HR* Heparin 5,000 UNIT/ML VIAL IVP PRN ×3 (03:05→18:26)
[2022-05-23 03:36] LABS: Estimated Average Glucose 114 mg/dl; Hemoglobin A1C 5.6 %
[2022-05-23] MEDS: Pantoprazole 40 MG VIAL IVP SCH (09:35)
[2022-05-23] MEDS: Isosorbide MONOnitrate (24 HR) 30 MG TAB.ER.24H PO SCH (09:37)
[2022-05-23] MEDS: Metoprolol XL (24 HR) Succ 50 MG TAB.ER.24H PO SCH (09:37)
[2022-05-23] MEDS: Heparin 25,000UNIT/250ML 1/2NS 25,000 UNIT/250 ML IV.SOLN IVC SCH (16:27)
[2022-05-24] MEDS: Piperacillin/Tazobactam 3.375 GM in 0.9 % Sodium Chloride Mini Bag 100 ML IVPB SCH ×3 (01:00→16:26)
[2022-05-24] MEDS: D5% in 0.9% NACL 1,000 ML IVC SCH ×2 (01:12→14:37)
[2022-05-24] MEDS: *HR* Heparin 5,000 UNIT/ML VIAL IVP PRN (02:14)
[2022-05-24] MEDS: Metoprolol XL (24 HR) Succ 50 MG TAB.ER.24H PO SCH (08:28)
[2022-05-24] MEDS: Isosorbide MONOnitrate (24 HR) 30 MG TAB.ER.24H PO SCH (08:28)
[2022-05-24] MEDS: Pantoprazole 40 MG VIAL IVP SCH (08:31)
[2022-05-24] MEDS: Heparin 25,000UNIT/250ML 1/2NS 25,000 UNIT/250 ML IV.SOLN IVC SCH (12:50)
[2022-05-25] MEDS: Piperacillin/Tazobactam 3.375 GM in 0.9 % Sodium Chloride Mini Bag 100 ML IVPB SCH ×2 (00:16→08:01)
[2022-05-25] MEDS: D5% in 0.9% NACL 1,000 ML IVC SCH (04:38)
[2022-05-25] MEDS: Pantoprazole 40 MG VIAL IVP SCH (08:04)
[2022-05-25] MEDS: Isosorbide MONOnitrate (24 HR) 30 MG TAB.ER.24H PO SCH (08:05)
[2022-05-25] MEDS: Metoprolol XL (24 HR) Succ 50 MG TAB.ER.24H PO SCH (08:05)
[2022-05-25 08:33] LABS: Hematocrit 29.2 % (35.3-44.9); Hemoglobin 9.5 g/dL (11.5-15.4)
[2022-05-25 08:52] LABS: Magnesium 1.8 mg/dL (1.6-2.6); Phosphorous 2.4 mg/dL (2.7-4.5)
[2022-05-25 08:53] LABS: Potassium 3.1 mEq/L (3.5-5.1)
[2022-05-25 10:28] VITALS: BP 140/81; PULSE 72; TEMP 98.4; O2SAT 95
== END 2022-05-25 13:51 | disposition home or self-care (01) | DRG 377 ==
LOC: 3BNU 04:41 → EMEROOARM 04:41 → SUATTDRO 12:53 → 3BNU 13:35
PROVIDERS: ADMIT Internal Medicine; ATTEND Student in an Organized Health Care Education/Training Program